=== PATIENT | female | born 1960 ===

== ENCOUNTER 2020-05-17 17:15 | Outpatient (REF) | payer BC, SELFPAY ==
--- NOTE | 2020-05-17 | MM_ITS ---
EXAMINATION: MM SCREENING DIGITAL BREAST TOMOSYNTHESIS, BILATERAL CLINICAL INFORMATION: Screening. Asymptomatic. The lifetime risk of breast cancer based on the Tyrer-Cuzick Model is 9%. COMPARISON: Mammography: 04/13/2019, 03/27/2018, 03/21/2017 TECHNIQUE: Digital breast tomosynthesis is performed in both the craniocaudal and mediolateral oblique views along with computer-aided detection (CAD). Synthesized 2D images are generated from the tomosynthesis. Additional left MLO view is provided. FINDINGS: There are scattered areas of fibroglandular density (ACR BI-RADS breast composition Category b). There are no significant masses, abnormal calcifications, or other abnormalities. Intramammary node upper outer left breast again noted similar to prior studies. The axilla and skin contours are unremarkable. No significant changes. MM/MM tomosynthesis screening BI IMPRESSION: No mammographic evidence of malignancy. ASSESSMENT: BI-RADS 2: Benign RECOMMENDATION: Routine annual mammography screening. This patient's information was entered into a reminder system with a target due date for their next mammogram.
== END 2020-05-17 17:16 | disposition home or self-care (01) ==
LOC: HO.MAMMO 17:15
PROVIDERS: PCP Internal Medicine; Visit Provider Obstetrics & Gynecology Gynecology
DX: Z12.31 Encounter for screening mammogram for malignant neoplasm of breast (principal)
CPT/HCPCS: 77063; 77067

== ENCOUNTER 2021-02-21 12:24 | Outpatient (REF) | payer BC, SELFPAY ==
[2021-02-21 13:02] LABS: MANUAL DIFF FLAG NO
[2021-02-21 13:09] LABS: Basophils Percent Auto 0.5 % (0-2); Eosinophils Absolute Auto 0.3 X10*3/uL (0.0-0.4); Eosinophils Percent Auto 3.7 % (0-4); Hematocrit 39.4 % (37-47); Imm Gran Abs Auto 0.02 X10*3/uL (0.00-0.03); Imm Gran Pct Auto 0.3 % (0.0-0.4); Lymphocytes Absolute Auto 2.3 X10*3/uL (1.2-4.9); Lymphocytes Percent Auto 29.7 % (20-40); Mean Corpuscular Hemoglobin 30.7 pg (27.0-33.0); Mean Corpuscular Volume 92.9 fL (80-98); Mean Platelet Volume 10.4 fL (9.4-12.3); Monocytes Absolute Auto 0.6 X10*3/uL (0.1-1.2); Monocytes Percent Auto 7.2 % (2-11); Neutrophils Absolute Auto 4.6 X10*3/uL (2.0-8.3); Neutrophils Percent Auto 58.6 % (45-73); Platelet Count 209 X10*3/uL (160-400); Red Blood Count 4.24 X10*6/uL (4.20-5.50); White Blood Count 7.8 X10*3/uL (4.8-10.8)
[2021-02-21 13:15] LABS: Estimated Average Glucose 108 mg/dL; Hemoglobin A1c % 5.4 %
[2021-02-21 13:26] LABS: Alanine Aminotransferase 14 U/L (0-31); Albumin Level 4.3 g/dL (3.5-5.0); Alkaline Phosphatase 67 U/L (39-117); Anion Gap 13 (12-20); Aspartate Amino Transferase 13 U/L (5-31); Bilirubin Total 0.5 mg/dL (0.0-1.0); Blood Urea Nitrogen 17 mg/dL (9-16); Calcium 8.9 mg/dL (8.4-10.2); Carbon Dioxide 29 mmol/L (22-29); Chloride 105 mmol/L (96-108); Cholesterol 193 mg/dL; Estimated Glomerular Filt Rate > 60; Glucose Random 87 mg/dL (60-115); HDL Cholesterol 61 mg/dL; LDL Cholesterol Calculated 114 mg/dl; Potassium 4.3 mmol/L (3.3-5.1); Sodium 143 mmol/L (135-145); Total Protein 7.1 g/dL (6.5-8.0); Triglycerides 94 mg/dL
[2021-02-21 13:47] LABS: Free T4 (Free Thyroxine) 1.23 ng/dL (0.71-1.85); Thyroid Stimulating Hormone 0.62 uIU/mL (0.32-4.0); Vitamin D 25-OH Total 56.6 ng/mL (>30)
[2021-02-21 14:02] LABS: Folate 17.7 ng/mL (> or = 4.0); Vitamin B12 288 pg/mL (200-900)
== END 2021-02-21 12:25 | disposition home or self-care (01) ==
LOC: HO.LAB 12:24
PROVIDERS: PCP Internal Medicine; Visit Provider Internal Medicine
DX: E03.9 Hypothyroidism, unspecified (principal); E78.00 Pure hypercholesterolemia, unspecified; R73.02 Impaired glucose tolerance (oral)
CPT/HCPCS: 36415; 80053; 80061; 82306; 82607; 82746; 83036; 84439; 84443; 85025

== ENCOUNTER 2021-04-27 09:32 | Outpatient (REF) | payer BC, SELFPAY ==
[2021-04-27 11:36] LABS: Influenza A PCR NEGATIVE (Negative); Influenza B PCR NEGATIVE (Negative); Resp Syncy Virus RNA Qual PCR NEGATIVE (Negative); SARS COV2 PCR INHOUSE NEGATIVE (Negative)
== END 2021-04-27 09:33 | disposition home or self-care (01) ==
LOC: HO.LAB 09:32
PROVIDERS: PCP Internal Medicine; Visit Provider Internal Medicine
DX: Z20.822 Contact with and (suspected) exposure to COVID-19 (principal)
CPT/HCPCS: 0241U; 36415

== ENCOUNTER 2021-05-21 15:15 | Outpatient (REF) | payer BC, SELFPAY ==
--- NOTE | ~2021-05-21 | MM_ITS ---
EXAMINATION: MM SCREENING DIGITAL BREAST TOMOSYNTHESIS, BILATERAL CLINICAL INFORMATION: Screening. Asymptomatic. The lifetime risk of breast cancer based on the Tyrer-Cuzick Model is 7%. COMPARISON: Mammography: 05/17/2020, 04/13/2019, 03/27/2018 TECHNIQUE: Digital breast tomosynthesis is performed in both the craniocaudal and mediolateral oblique views along with computer-aided detection (CAD). Synthesized 2D images are generated from the tomosynthesis. FINDINGS: The breasts are heterogeneously dense, which may obscure small masses (ACR BI-RADS breast composition Category c). Parenchymal pattern is similar to prior exams. Nodularity upper outer quadrant left breast is stable. There is no developing density in either breast or architectural abnormality. No abnormal calcifications. The axilla and skin contours are unremarkable. MM/MM tomosynthesis screening BI IMPRESSION: No mammographic evidence of malignancy. ASSESSMENT: BI-RADS 2: Benign RECOMMENDATION: Routine annual mammography screening. This patient's information was entered into a reminder system with a target due date for their next mammogram.
== END 2021-05-21 15:16 | disposition home or self-care (01) ==
LOC: HO.MAMMO 15:15
PROVIDERS: PCP Internal Medicine; Visit Provider Obstetrics & Gynecology Gynecology
DX: Z12.31 Encounter for screening mammogram for malignant neoplasm of breast (principal)
CPT/HCPCS: 77063; 77067

== ENCOUNTER 2022-02-25 07:37 | Outpatient (REF) | payer BC, SELFPAY ==
[2022-02-25 08:35] LABS: Alanine Aminotransferase 20 U/L (0-31); Albumin Level 4.3 g/dL (3.5-5.0); Alkaline Phosphatase 86 U/L (39-117); Anion Gap 16 (12-20); Aspartate Amino Transferase 16 U/L (5-31); Bilirubin Total 0.4 mg/dL (0.0-1.0); Blood Urea Nitrogen 16 mg/dL (9-16); Calcium 9.4 mg/dL (8.4-10.2); Carbon Dioxide 30 mmol/L (22-29); Chloride 102 mmol/L (96-108); Cholesterol 219 mg/dL; Estimated Glomerular Filt Rate > 60; Glucose Random 101 mg/dL (60-115); HDL Cholesterol 65 mg/dL; LDL Cholesterol Calculated 127 mg/dl; Potassium 5.1 mmol/L (3.3-5.1); Rheumatoid Factor < 15.0 IU/mL (<15.0); Sodium 143 mmol/L (135-145); Total Protein 7.5 g/dL (6.5-8.0); Triglycerides 136 mg/dL
[2022-02-25 08:37] LABS: Estimated Average Glucose 108 mg/dL; Hemoglobin A1c % 5.4 %
[2022-02-28 16:02] LABS: Anti Nuclear Antibody Pattern Nuclear, Centromere; Anti Nuclear Antibody Screen POSITIVE (NEGATIVE); Anti Nuclear Antibody Titer 1:40 titer
== END 2022-02-25 07:38 | disposition home or self-care (01) ==
LOC: HO.LAB 07:37
PROVIDERS: PCP Internal Medicine; Visit Provider Nurse Practitioner Family
DX: E78.00 Pure hypercholesterolemia, unspecified (principal); M25.50 Pain in unspecified joint; R73.02 Impaired glucose tolerance (oral); R09.89 Other specified symptoms and signs involving the circulatory and respiratory systems
CPT/HCPCS: 36415; 80053; 80061; 83036; 86038; 86039; 86431

== ENCOUNTER 2022-05-27 15:24 | Outpatient (REF) | payer BC, SELFPAY ==
--- NOTE | ~2022-05-27 | MM_ITS ---
EXAMINATION: MM SCREENING DIGITAL BREAST TOMOSYNTHESIS, BILATERAL CLINICAL INFORMATION: Screening. Asymptomatic. The lifetime risk of breast cancer based on the Tyrer-Cuzick Model is 7%. COMPARISON: Mammography: 05/21/2021, 05/17/2020, 04/13/2019 TECHNIQUE: Digital breast tomosynthesis is performed in both the craniocaudal and mediolateral oblique views along with computer-aided detection (CAD). Synthesized 2D images are generated from the tomosynthesis. Additional bilateral MLO views are provided. FINDINGS: There are scattered areas of fibroglandular density (ACR BI-RADS breast composition Category b). There are no significant masses, abnormal calcifications, or other abnormalities. Parenchymal pattern is similar to prior studies. There is no developing density or architectural abnormality. There is an intramammary node again seen mid upper outer left breast similar to prior studies. The axilla are unremarkable. There is a dermal lesion overlying the posterior medial right breast marked with skin marker. MM/MM tomosynthesis screening BI IMPRESSION: No mammographic evidence of malignancy. ASSESSMENT: BI-RADS 2: Benign RECOMMENDATION: Routine annual mammography screening. This patient's information was entered into a reminder system with a target due date for their next mammogram.
== END 2022-05-27 15:25 | disposition home or self-care (01) ==
LOC: HO.MAMMO 15:24
PROVIDERS: PCP Internal Medicine; Visit Provider Internal Medicine
DX: Z12.31 Encounter for screening mammogram for malignant neoplasm of breast (principal)
CPT/HCPCS: 77063; 77067

== ENCOUNTER → 2022-09-24 13:56 | Outpatient (REF) | payer BC, SELFPAY | LOC: HO.SL 13:56 | PROVIDERS: PCP Internal Medicine; Visit Provider Internal Medicine | DX: G47.33 Obstructive sleep apnea (adult) (pediatric) (principal) | CPT/HCPCS: 95806 ==

== ENCOUNTER 2023-06-10 13:57 | Outpatient (REF) | payer BC, SELFPAY | END 2023-06-10 13:58 | disposition home or self-care (01) | LOC: HO.MAMMO 13:57 | PROVIDERS: Visit Provider Obstetrics & Gynecology Gynecology | DX: Z12.31 Encounter for screening mammogram for malignant neoplasm of breast (principal) | CPT/HCPCS: 77063; 77067 ==

== ENCOUNTER → 2023-06-10 14:00 | Outpatient (BNV) | payer BC, SELFPAY | PROVIDERS: Visit Provider Radiology Diagnostic Radiology | DX: Z12.31 Encounter for screening mammogram for malignant neoplasm of breast (principal) | CPT/HCPCS: 77063; 77067 ==

== ENCOUNTER 2023-06-13 14:55 | Outpatient (REF) | payer BC, SELFPAY ==
--- NOTE | ~2023-06-13 | MM_ITS ---
EXAMINATION: BONE DENSITOMETRY CLINICAL INDICATION: Menopause. COMPARISON: Baseline BD dated 06/23/2015. TECHNIQUE: Using a [employer] DXA System (software version: 13.1) manufactured by [employer], dual-energy x-ray absorptiometry was performed of the lumbar spine and left hip. The images are of good technical quality. Summary results are attached. FINDINGS: LEFT FEMUR, NECK: Current: BMD 0.951 g/cm2, Z-score 0.1, T-score -0.6, normal. Baseline: BMD 0.947 g/cm2. LEFT FEMUR, TOTAL: Current: BMD 1.008 g/cm2, Z-score 0.4, T-score 0.0, normal, 0.7% increase from baseline (<5% change is not significant). Baseline: BMD 1.001 g/cm2. AP SPINE L1-L4: Current: BMD 1.249 g/cm2, Z-score 1.1, T-score 0.6, normal, 4.8% increase from baseline (<5% change is not significant). Baseline: BMD 1.192 g/cm2. IDENTIFIED RISK FACTORS: Early menopause, hysterectomy, bilateral oophorectomy, secondary osteoporosis. HISTORY OF FRACTURE: None listed. MEDICATIONS: Calcium, vitamin D, ERT/SERMS. MM/XR DEXA axial skeleton IMPRESSION: 1. DIAGNOSIS: Normal bone density based on the lowest T-score value of -0.6 in the femoral neck applying World Health Organization criteria. 2. 10-YEAR FRACTURE RISK PREDICTION, FRAX: According to the guidelines, FRAX calculation should only be performed on patients in the osteopenia bone density category. Therefore, FRAX was not performed on this patient. 3. Treatment Recommendations: NOF guidelines recommend consideration for treatment in postmenopausal women and men age 50 and older presenting with the following: -A hip or vertebral (clinical or morphometric) fracture. -T-score less than or equal to -2.5 at the femoral neck or spine after appropriate evaluation to exclude secondary causes. -Low bone mass at the hip or spine and a 10-year fracture probability by FRAX of greater than or equal to 3% for hip fracture or greater than or equal to 20% for major osteoporotic fracture based on the [place] adapted WHO algorithm. 4. Other Recommendations: All treatment decisions require clinical judgment and consideration of individual patient factors, including patient preferences, comorbidities, previous drug use, risk factors not captured in the FRAX model (e.g. frailty, falls, vitamin D deficiency, increased bone turnover, interval significant decline in bone density) and possible under or overestimation of fracture risk by FRAX. FUTURE SCAN RECOMMENDATION: People with diagnosed cases of osteoporosis or at high risk for fracture should have regular bone mineral density tests. For patients eligible for Medicare, routine testing is allowed once every 2 years. The testing frequency can be increased to one year for patients who have rapidly progressing disease, those who are receiving or discontinuing medical therapy to restore bone mass, or have additional risk factors.
== END 2023-06-13 14:56 | disposition home or self-care (01) ==
LOC: HO.MAMMO 14:55
PROVIDERS: PCP Obstetrics & Gynecology Gynecology; Visit Provider Obstetrics & Gynecology Gynecology
DX: Z13.820 Encounter for screening for osteoporosis (principal); Z78.0 Asymptomatic menopausal state
CPT/HCPCS: 77080

== ENCOUNTER 2023-07-18 14:01 | Outpatient (AMB) | payer OTHER, SELFPAY ==
--- NOTE | 2023-07-18 14:03 | A.OFFPC_ITS ---
Vital Signs 07/18/23 14:04 Height 5 ft 2 in Weight 204 lb 2 oz BMI 37.3 BP 128/82 Blood Pressure Location Lt brachial Position Sitting Pulse 76 Pulse Source Pulse Oximeter Pulse Oximetry (%) 98 Oxygen Delivery Method Room Air Intake Visit Reasons: witnessed apnea, HTN Marketing Support Coordinator Required: No Accompanied by: Self / Same As Patient Allergies Penicillins [PCN] Allergy (Unknown, Verified 07/18/23 14:07) UNKNOWN Medication List - Last Reconciled 07/18/23 by Kaci Eubanks MD [AutoPAP mode and pressure setting of 6-16 cm water humidified AIR As directed] carvedilol 6.25 mg PO BID cholecalciferol (vitamin D3) 50 mcg PO DAILY estradiol patches transdermal levothyroxine 88 mcg orally once a day x 6 days one 1.5 tab; simvastatin 10 mg PO DAILY 90 days Tobacco use date assessed: 07/18/23 Dental Screening Dental Screen Date: 07/18/23 Did you have a dental visit in the last 12 months?: Yes Did you have a dental problem in the last 6 months where you did not have access to dental care?: No Was dental information given to patient?: Patient has dentist HPI witnessed apnea, HTN HPI Details 63-year-old obese female with a history of hypothyroidism(history of thyroid cancer) impaired glucose tolerance hypercholesterolemia and labile hypertension last seen in August 2022. Patient has generalized anxiety disorder also as well as concerns about witnessed apneic spells coming in for follow-up. Patient's colonoscopy is up-to-date May 2018 mammogram and bone density up-to-date. In September 2022 patient was seen by Nephrology due to concerns of the blood pressure advised increase in carvedilol and blood work follow-up requested. Patient did have the sleep study done September 2022 showing moderately severe obstructive sleep apnea with an AHI of 16.6 advised to start on CPAP with auto PAP setting of 6-16 cm water. but patient states doubt the results - and has not used this- advsied to see sleep management and stressed improtance. Patient also complains of having chest pain intermittently sometimes while driving and this would spontaneously clear. No nausea no vomiting no fevers no coughs no colds no bowel bladder symptoms. [facility] Medical History (Updated 07/18/23 @ 14:28 by Kaci Eubanks MD) Witnessed apneic spells Labile hypertension Anxiety Impaired glucose tolerance Peripheral vascular disease Hypercholesterolemia History of thyroid cancer Hypothyroid Obesity (BMI 30-39.9) Surgical History History of hysterectomy History of thyroidectomy Family History Father Diabetes Hypertension CVD (cardiovascular disease) Mother CVD (cardiovascular disease) Hypertension Sister In good health Lung cancer Sister In good health Sister In good health Son In good health Paternal Uncle Myocardial infarction Maternal Uncle Myocardial infarction Social History Housing: House Alcohol intake: never Patient Tobacco Use Status: Never used Tobacco e-Cigarette/Vaping Use: Never Used Second Hand Smoke Exposure: No service: No Current occupational status: employed Current occupational exposures/hazards: No Cognitive needs: No Hearing needs: No Vision needs: Yes Questionnaire PHQ-9 Over the last 2 weeks, how often have you been bothered by any of the following problems? 1. Little interest or pleasure in doing things: not at all 2. Feeling down, depressed, or hopeless: not at all 3. Trouble falling or staying asleep, or sleeping too much: not at all 4. Feeling tired or having little energy: not at all 5. Poor appetite or overeating: not at all 6. Feeling bad about yourself - or that you are a failure or have let yourself or your family down: not at all 7. Trouble concentrating on things, such as reading the newspaper or watching television: not at all 8. Moving or speaking so slowly that other people could have noticed. Or the opposite - being so fidgety or restless that you have been moving around a lot more than usual: not at all 9. Thoughts that you would be better off or of hurting yourself in some way: not at all Total score: 0 Depression Screening Interpretation: Negative Depression Screening Done: Yes 41323 - PHQ-9 Billing: Yes Source: Developed by Drs. Vin Vallejo, Dalia Lui, Chacorta Doran and colleagues, with an educational severiano from [employer]. Thrive Questionnaire Date Thrive assessed: 07/18/23 I am a: Patient What is your living situation today?: I have a steady place to live Within the past 12 months, did the food you bought not last and you didn't have the money to get more?: Never true Within the past 12 months, did you worry whether your food would run out before you got money to buy more?: Never true Do you have trouble paying for medicines?: No Do you have trouble getting transportation to medical appointments?: No Do you have trouble paying your heating and electricity bill?: No Do you have trouble taking care of your child, family member or friend?: No Do you have trouble with day-to-day activities such as bathing, preparing meals, shopping, managing finances, etc.?: No Are you currently unemployed and looking for a job?: No Are you interested in more education?: No Please select the resources that you would like help with: None Currently or been in a relationship where the following occur: no concerns reported THRIVE Score: 0 AUDIT C Alcohol Use Questionnaire (AUDIT-C) 1. How often do you have a drink containing alcohol?: Never 3. How often do you have six or more drinks on one occasion?: Never Total Score: 0 YOLANDA-7 AMB Questionnaire YOLANDA-7 Date YOLANDA - 7 assessed: 07/18/23 Feeling nervous, anxious, or on edge: 0 = Not at all Not being able to stop or control worryin = Not at all Worrying too much about different things: 0 = Not at all Trouble relaxin = Not at all Being so restless that it is hard to sit still: 0 = Not at all Becoming easily annoyed or irritable: 0 = Not at all Feeling afraid as if something awful might happen: 0 = Not at all Total YOLANDA-7 score (0-4 normal; 5-9 mild; 10-14 moderate; 15-21 severe): 0 Source: Developed by Drs. Vin Vallejo, Dalia Lui, Chacorta Doran and colleagues, with an educational severiano from [employer]. YOLANDA-7 Assessment Billing YOLANDA-7 Assessment Tool: YOLANDA-7 Assessment 51438 Physical exam (Primary Care) Vital Signs: Last Vital Signs Pulse 76 07/18/23 14:04 Pulse Ox 98 07/18/23 14:04 Oxygen Delivery Method Room Air 07/18/23 14:04 BMI result Body Mass Index 37.3 Tobacco/Smoking Status: Tobacco use Status Tobacco use date assessed 08/29/22 08/29/22 13:12 Patient Tobacco Use Status Never used Tobacco 08/29/22 13:12 e-Cigarette/Vaping Use Never Used 08/29/22 13:12 Depression Screening Interpretation: Negative Thrive Assessment: Date of Thrive Assessment Date Thrive assessed 08/29/22 08/29/22 13:14 Currently or been in a relationship where the following occur: no concerns reported Const General: alert; No acute distress Eyes Conjunctivae: conjunctivae normal Resp Auscultation: clear to auscultation bilaterally Cardio Rate: regular rate Rhythm: regular rhythm GI Inspection: Yes normal to inspection Extrem General: Yes normal to inspection and No edema Assessment and Plan Assessment & Plan (1) Severe obstructive sleep apnea: Comment: September 2022 Code(s): G47.33 - Obstructive sleep apnea (adult) (pediatric) Plan: have not been using the CPAP. And discussed with the patient the importance of getting this sleep apnea under control as it will affect the heart. And patient does complain that she has some palpitations. (2) Hypothyroid: Code(s): E03.9 - Hypothyroidism, unspecified Qualifiers: Hypothyroidism type: acquired Qualified Code(s): E03.9 - Hypothyroidism, unspecified Plan: Continue with thyroid medication patient follows up with endocrinology (3) Obesity (BMI 30-39.9): Code(s): E66.9 - Obesity, unspecified Plan: Diet and exercise (4) Hypercholesterolemia: Comment: goal of LDL is less than 130 Code(s): E78.00 - Pure hypercholesterolemia, unspecified Plan: Avoid fried foods, chicken skin, eggs, butter margarine, pastries and meat. Be it pork or beef they have a lot of cholesterol LDL goal of less than 130 and triglyceride of less than 150 patient on simvastatin 10 mg once a day advised the need to get this retested (5) Hypertension: Code(s): I10 - Essential (primary) hypertension Plan: Patient has seen Nephrology and was advised to continue with carvedilol. Continue with present medication, low-salt diet (6) Generalized anxiety disorder: Code(s): F41.1 - Generalized anxiety disorder Plan: Stable (7) Chest pain: Code(s): R07.9 - Chest pain, unspecified Plan: Will order for stress Orders: Orders Thyroid Stimulating Hormone Today E03.9 - Hypothyroidism, unspecified Free T4 (Free Thyroxine) Today E03.9 - Hypothyroidism, unspecified Comprehensive Met. Panel Today E03.9 - Hypothyroidism, unspecified CA stress test Today R07.9 - Chest pain, unspecified Referrals Sleep Medicine Referral G47.33 - Obstructive sleep apnea (adult) (pediatric) Medications: Refilled simvastatin 10 mg PO DAILY 90 days 90 tabs 2RF E78.00 - Pure hypercholesterolemia, unspecified Coding Level of Care Code Est Pt Level 4 (02967) Diagnoses Severe obstructive sleep apnea G47.33 Acquired hypothyroidism E03.9 Hypothyroidism type: acquired Obesity (BMI 30-39.9) E66.9 Hypercholesterolemia E78.00 Hypertension I10 Generalized anxiety disorder F41.1 Chest pain R07.9 Additional Codes YOLANDA-7 Assessment Billing - YOLANDA-7 Assessment Tool: YOLANDA-7 Assessment [id number] ([id number])
[2023-07-18 14:04] VITALS: BP 128/82; PULSE 76; O2SAT 98; BMI 37.3
== END 2023-07-18 14:45 | disposition home or self-care (01) ==
PROVIDERS: PCP Internal Medicine; Visit Provider Internal Medicine
DX: E03.9 Hypothyroidism, unspecified (principal); G47.33 Obstructive sleep apnea (adult) (pediatric); E66.9 Obesity, unspecified; Z68.37 Body mass index [BMI] 37.0-37.9, adult; E78.00 Pure hypercholesterolemia, unspecified; I10 Essential (primary) hypertension; F41.1 Generalized anxiety disorder; R07.9 Chest pain, unspecified
CPT/HCPCS: 99214

== ENCOUNTER → 2023-08-08 09:51 | Outpatient (REF) | payer OTHER, SELFPAY ==
--- NOTE | 2023-08-08 09:53 | CA_ITS ---
Acquisition Time: 2023-08-08 09:48:37 Total Exercise Time: 00:05:02 Test Indications: Palpitations CHEST PAIN Medications: CRVEDILOL LEVOTHYROXINE SIMVASTATIN ESTRADIOL Protocol: YUMIKO Max HR: 162 BPM 102% of Pred: 158 BPM Max BP: 172/080 mmHG Max Work Load: 7.0 METS `````````````````````````````````````````````````````````````````````````````` ` Exercise stress test exercise 5 min 2 sec of Yumiko protocol achieving 101% MPHR, with 6/10 chest tightness, mild to moderate SOB, with isolated PVC, with normotensive and brisk HR response to exercise, without EKG changes. Chest pain resolved with rest. Text reviewed with Dr. Hagan Referred By: Kaci Eubanks Overread By: Margie Culver
== END ==
LOC: HO.CARD 09:51
PROVIDERS: PCP Obstetrics & Gynecology Gynecology; Visit Provider Internal Medicine
DX: R07.9 Chest pain, unspecified (principal)
CPT/HCPCS: 93017

== ENCOUNTER → 2023-08-08 09:53 | Outpatient (BNV) | payer OTHER, SELFPAY | PROVIDERS: PCP Obstetrics & Gynecology Gynecology; Visit Provider Nurse Practitioner | DX: R07.89 Other chest pain (principal); R06.02 Shortness of breath | CPT/HCPCS: 93016; 93018 ==

== ENCOUNTER → 2023-10-03 08:49 | Outpatient (REF) | payer OTHER, SELFPAY ==
--- NOTE | ~2023-10-03 | NM_ITS ---
Lexiscan Myocardial perfusion study Indication: Chest pain, assess for coronary disease and ischemia Technique: The patient was brought in for a Lexiscan perfusion study on 10/03/2023 and was injected 0.4 mg of Lexiscan intravenously. Within a minute of this injection 30 mCi of sestamibi was given intravenously. Images were obtained using the SPECT gamma camera interlaced with the gating device. Images were obtained in supine position. Resting perfusion study was performed on 10/08/2023. Patient was administered 30 mCi of sestamibi intravenously at rest. Images were then obtained in supine position. Images were processed with the software and compared side to side in short axis, horizontal long axis and vertical long axis views. Total DLP 122mGy-cm. Findings: Raw acquisition reviewed. The stress perfusion study showed diminished tracer uptake in the distal part of lateral wall. Some improvement with CT attenuation correction and could have components of soft tissue attenuation artifact. The gated study shows normal LV systolic function with calculated LVEF of 66%. LV cavity is normal in size. The gated study shows normal wall thickening and contraction of segments. Resting study shows no significant perfusion abnormality. Gating at rest reveals normal wall motion with ejection fraction at 70%. The findings are consistent with reversible distal lateral defect, possibly from soft tissue attenuation artifact. UT/UT cardiolite stress test Impression: 1. Myocardial perfusion imaging study shows no definitive evidence of any ischemia or infarction. Probably artifactual defect in the distal lateral wall. 2. Gated LVEF is 66% during stress; 70% during rest. 3. Transient ischemic dilatation not present. EKG component of the test reported separately.
--- NOTE | 2023-10-03 08:52 | CA_ITS ---
Acquisition Time: 2023-10-03 08:56:01 Total Exercise Time: 00:02:00 Test Indications: CP Medications: SEE H Protocol: LEXISCAN Max HR: 108 BPM 68% of Pred: 158 BPM Max BP: 144/088 mmHG Max Work Load: 1.0 METS Pharmacological stress test with Lexiscan injection while sitting and kicking her legs, without anginal symptoms, without arrhythmias, with normotensive resposne to injection, with nondiagnoisitic EKGs. Nuclear images pending. Test reviewed with Dr. Patel. Referred By: Kaci Eubanks Overread By: Margie Culver
== END ==
LOC: HO.CARD 08:49
PROVIDERS: PCP Obstetrics & Gynecology Gynecology; Visit Provider Internal Medicine
DX: R07.9 Chest pain, unspecified (principal)
CPT/HCPCS: 78452; 93017; A9500; J0280; J2785

== ENCOUNTER → 2023-10-03 08:52 | Outpatient (BNV) | payer OTHER, SELFPAY | PROVIDERS: PCP Obstetrics & Gynecology Gynecology; Visit Provider Nurse Practitioner | DX: R07.9 Chest pain, unspecified (principal) | CPT/HCPCS: 78452; 93016; 93018 ==

== ENCOUNTER 2023-10-18 08:36 | Outpatient (REF) | payer OTHER, SELFPAY ==
[2023-10-18 08:53] LABS: MANUAL DIFF FLAG NO
[2023-10-18 09:29] LABS: Basophils Absolute Auto 0.1 X10*3/uL (0.0-0.2); Basophils Percent Auto 0.6 % (0-2); Eosinophils Absolute Auto 0.4 X10*3/uL (0.0-0.4); Eosinophils Percent Auto 4.8 % (0-4); Hematocrit 40.7 % (37.0-47.0); Hemoglobin 13.2 g/dl (12.0-16.0); Imm Gran Abs Auto 0.02 X10*3/uL (0.00-0.03); Imm Gran Pct Auto 0.3 % (0.0-0.4); Lymphocytes Percent Auto 25.6 % (20-40); Mean Corpuscular HGB Conc 32.4 g/dl (31.0-35.0); Mean Corpuscular Hemoglobin 30.8 pg (27.0-33.0); Mean Corpuscular Volume 94.9 fL (80.0-98.0); Mean Platelet Volume 10.2 fL (9.4-12.3); Monocytes Absolute Auto 0.5 X10*3/uL (0.1-1.2); Monocytes Percent Auto 6.3 % (2-11); Neutrophils Absolute Auto 4.8 x10*3/uL (2.0-8.3); Neutrophils Percent Auto 62.4 % (45-73); Platelet Count 220 X10*3/uL (160-400); Red Blood Count 4.29 X10*6/uL (4.20-5.50); Red Cell Distribution Width 13.3 % (11.0-16.0); White Blood Count 7.7 X10*3/uL (4.8-10.8)
[2023-10-18 10:11] LABS: Alanine Aminotransferase 21 U/L (0-31); Albumin Level 4.1 g/dL (3.5-5.0); Alkaline Phosphatase 75 U/L (39-117); Anion Gap 14 (12-20); Aspartate Amino Transferase 15 U/L (5-31); Bilirubin Total 0.5 mg/dL (0.0-1.0); Blood Urea Nitrogen 16 mg/dL (9-16); Calcium 9.4 mg/dL (8.4-10.2); Carbon Dioxide 28 mmol/L (22-29); Chloride 105 mmol/L (96-108); Cholesterol 209 mg/dL (<200); Estimated Glomerular Filt Rate > 60; Glucose Random 106 mg/dL (60-115); HDL Cholesterol 61 mg/dL (>40); LDL Cholesterol Calculated 124 mg/dL (<100); Potassium 4.7 mmol/L (3.3-5.1); Sodium 142 mmol/L (135-145); Total Protein 7.4 g/dL (6.5-8.0); Triglycerides 121 mg/dL (<150)
[2023-10-18 10:29] LABS: Free T4 (Free Thyroxine) 1.11 ng/dL (0.71-1.85); Thyroid Stimulating Hormone 1.08 uIU/mL (0.32-4.0); Vitamin D 25-OH Total 57.9 ng/mL (>30)
[2023-10-18 10:39] LABS: Folate 8.3 ng/mL (> or = 4.0); Vitamin B12 281 pg/mL (200-900)
== END 2023-10-18 08:37 | disposition home or self-care (01) ==
LOC: HO.LAB 08:36
PROVIDERS: PCP Internal Medicine; Visit Provider Internal Medicine
DX: E78.00 Pure hypercholesterolemia, unspecified (principal); E03.9 Hypothyroidism, unspecified
CPT/HCPCS: 36415; 80053; 80061; 82306; 82607; 82746; 84439; 84443; 85025

== ENCOUNTER 2023-10-24 10:30 | Outpatient (AMB) | payer OTHER, SELFPAY ==
--- NOTE | 2023-10-24 10:36 | MHC.PC.OV ---
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 Had some chest pain and stress test done. Patient's colonoscopy last done in May 2018, mammogram is up-to-date bone density is up-to-date. Nephrology notes September 2023 for hypertension advise low-sodium diet avoid NSAIDs weight loss target blood pressure 120/80 advised increase in carvedilol 12.5 mg twice a day stress test done September 2023 negative Myocardial perfusion imaging study shows no definitive evidence of any ischemia or infarction. Probably artifactual defect in the distal lateral wall. 2. Gated LVEF is 66% during stress; 70% during rest. 3. Transient ischemic dilatation not present. 4 weeks fall - tripped no chest pain fell on bilateral knee but today still L knee pain. had asthmatic bronchitis during lj trip also. amauri has not useds the CPAP and will be seeing Neuro for repeat testing [facility] Medical History (Updated 07/18/23 @ 14:28 by Kaci Eubanks MD) Witnessed apneic spells Labile hypertension Anxiety Impaired glucose tolerance Peripheral vascular disease Hypercholesterolemia History of thyroid cancer Hypothyroid Obesity (BMI 30-39.9) Surgical History History of hysterectomy History of thyroidectomy Family History Father Diabetes Hypertension CVD (cardiovascular disease) Mother CVD (cardiovascular disease) Hypertension Sister In good health Lung cancer Sister In good health Sister In good health Son In good health Paternal Uncle Myocardial infarction Maternal Uncle Myocardial infarction Social History Housing: House Alcohol intake: never Patient Tobacco Use Status: Never used Tobacco e-Cigarette/Vaping Use: Never Used Second Hand Smoke Exposure: No service: No Current occupational status: employed Current occupational exposures/hazards: No Cognitive needs: No Hearing needs: No Vision needs: Yes Questionnaire Thrive Questionnaire Date Thrive assessed: 07/18/23 YOLANDA-7 AMB Questionnaire YOLANDA-7 Date YOLANDA - 7 assessed: 07/18/23 Source: Developed by Drs. Vin Vallejo, Dalia Lui, Chacorta Doran and colleagues, with an educational severiano from [employer]. Physical exam (Primary Care) Vital Signs: Last Vital Signs Pulse 78 10/24/23 10:40 BP 144/90 H 10/24/23 10:40 Pulse Ox 96 10/24/23 10:40 Oxygen Delivery Method Room Air 10/24/23 10:40 BMI result Body Mass Index 37.3 Tobacco/Smoking Status: Tobacco use Status Tobacco use date assessed 07/18/23 10/24/23 10:37 Patient Tobacco Use Status Never used Tobacco 10/24/23 10:37 e-Cigarette/Vaping Use Never Used 10/24/23 10:37 Thrive Assessment: Date of Thrive Assessment Date Thrive assessed 07/18/23 10/24/23 10:37 Const General: alert; No acute distress Eyes Conjunctivae: conjunctivae normal Resp Auscultation: clear to auscultation bilaterally Cardio Rate: regular rate Rhythm: regular rhythm GI Inspection: Yes normal to inspection Extrem General: Yes normal to inspection and No edema Assessment and Plan Assessment & Plan (1) Obesity (BMI 30-39.9): Code(s): E66.9 - Obesity, unspecified Plan: Diet and exercise (2) Hypothyroid: Code(s): E03.9 - Hypothyroidism, unspecified Qualifiers: Hypothyroidism type: acquired Qualified Code(s): E03.9 - Hypothyroidism, unspecified Plan: Continue with thyroid medication (3) History of thyroid cancer: Code(s): Z85.850 - Personal history of malignant neoplasm of thyroid Plan: Continue to follow-up with endocrinology for surveillance (4) Hypercholesterolemia: Comment: goal of LDL is less than 130 Code(s): E78.00 - Pure hypercholesterolemia, unspecified Plan: Avoid fried foods, chicken skin, eggs, butter margarine, pastries and meat. Be it pork or beef they have a lot of cholesterol patient on simvastatin 10 mg once a day LDL goal of less than 130 and triglyceride of less than 150. (5) Impaired glucose tolerance: Comment: discussed about diet and exercise Code(s): R73.02 - Impaired glucose tolerance (oral) Plan: Decrease the amount of carbohydrate intake, pasta, bread, rice and potatoes are all sugar and that is aside from all the sweet stuff, remember that fruits are good but they are Sweet also. (6) Severe obstructive sleep apnea: Comment: September 2022 Code(s): G47.33 - Obstructive sleep apnea (adult) (pediatric) Plan: not on CPAP and will have consult with neurology (7) Hypertension: Code(s): I10 - Essential (primary) hypertension Plan: Continue with blood pressure medication. Decrease salt intake and exercise patient has seen Nephrology and advised increase in carvedilol 12.5 mg twice a day (8) Chest pain: Code(s): R07.9 - Chest pain, unspecified Plan: Patient had cardiac workup negative (9) Generalized anxiety disorder: Code(s): F41.1 - Generalized anxiety disorder Plan: Stable Coding Level of Care Code Est Pt Level 4 (70248) Diagnoses Obesity (BMI 30-39.9) E66.9 Acquired hypothyroidism E03.9 Hypothyroidism type: acquired History of thyroid cancer Z85.850 Hypercholesterolemia E78.00 Impaired glucose tolerance R73.02 Severe obstructive sleep apnea G47.33 Hypertension I10 Chest pain R07.9 Generalized anxiety disorder F41.1
[2023-10-24 10:40] VITALS: BP 144/90; PULSE 78; O2SAT 96; BMI 37.3
[2023-10-24 11:03] VITALS: BP 132/70
== END 2023-10-24 11:20 | disposition home or self-care (01) ==
PROVIDERS: PCP Obstetrics & Gynecology Gynecology; Visit Provider Internal Medicine
DX: E03.9 Hypothyroidism, unspecified (principal); E66.9 Obesity, unspecified; Z68.37 Body mass index [BMI] 37.0-37.9, adult; Z85.850 Personal history of malignant neoplasm of thyroid; E78.00 Pure hypercholesterolemia, unspecified; R73.02 Impaired glucose tolerance (oral); G47.33 Obstructive sleep apnea (adult) (pediatric); I10 Essential (primary) hypertension; R07.9 Chest pain, unspecified; F41.1 Generalized anxiety disorder
CPT/HCPCS: 99214

== ENCOUNTER 2023-11-07 09:43 | Outpatient (AMB) | payer OTHER, SELFPAY ==
--- NOTE | 2023-11-07 10:02 | MHC.OFFVIS ---
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 Patient had sleep study done last year was told she has apnea,she has the machine but doesn't use it because she thought the test wasnt accurate Allergies Penicillins [PCN] Allergy (Unknown, Verified 11/07/23 10:09) UNKNOWN Medication List - Last Reconciled 11/07/23 by PADMINI Toro [AutoPAP mode and pressure setting of 6-16 cm water humidified AIR As directed] carvedilol 12.5 mg PO BID cholecalciferol (vitamin D3) 50 mcg PO DAILY estradiol patches transdermal levothyroxine 88 mcg orally once a day x 6 days one 1.5 tab; simvastatin 10 mg PO DAILY 90 days HPI Comments Details: 63yr-old female presents for new in-person patient visit for sleep consultation. Pt reports she underwent HST last September as her was worried that she had episodes of apneas and snoring as well as daytime sleepiness.. Her HST showed moderate obstructive sleep apnea w/ AHI 16.6/hr w/ Average SpO2 91%, O6xrkyr 75% w/ SpO2 < 90% x's 82 min and < 88% x's 20 min. She is interested in re-assessing her sleep apnea dx and tx options. Pt reports she received her CPAP machine, but cannot tolerate it. She does have bruxism, but has not tolerated her mouth guard. She does continue to have snoring, apneas, nocturnal choking sensation, daytime sleepiness- needs to take naps and easily falls asleep. She notes that she has enlarged tonsils, which were never removed. She has a h/o thyroid cancer- states this has been treated. Denies asthma, but recently told she is having allergy s/s. [facility] Medical History (Updated 11/07/23 @ 11:11 by PADMINI Toro) Witnessed apneic spells Labile hypertension Anxiety Impaired glucose tolerance Peripheral vascular disease Hypercholesterolemia History of thyroid cancer Hypothyroid Obesity (BMI 30-39.9) Surgical History History of hysterectomy History of thyroidectomy Family History Father Diabetes Hypertension CVD (cardiovascular disease) Mother CVD (cardiovascular disease) Hypertension Sister In good health Lung cancer Sister In good health Sister In good health Son In good health Paternal Uncle Myocardial infarction Maternal Uncle Myocardial infarction Social History Housing: House Alcohol intake: never Patient Tobacco Use Status: Never used Tobacco e-Cigarette/Vaping Use: Never Used Second Hand Smoke Exposure: No service: No Current occupational status: employed Current occupational exposures/hazards: No Cognitive needs: No Hearing needs: No Vision needs: Yes Review of Systems Const All systems reviewed & are unremarkable except as noted in HPI and below Physical Exam Vital Signs: Last Vital Signs Pulse 80 11/07/23 10:03 BP 140/88 H 11/07/23 10:03 Pulse Ox 96 11/07/23 10:03 BMI result Body Mass Index 36.9 Const General: no acute distress Orientation/consciousness: patient oriented x3 HEENT Other: Mallampati grade IV Small posterior oropharynx opening. Resp Effort & Inspection: able to speak in complete sentences Neuro General: patient oriented x3 Psych Mental Status: mental status grossly normal Speech and movement: Clear speech present Attitude: cooperative Telehealth Telehealth Location of provider rendering services: practice address Location of patient: address on file Patient Identification confirmed using: Name, : Yes Telehealth method: voice only Patient verbally consented to treatment: Yes Patient verbally consented to billing insurance company: Yes Patient informed of any privacy concerns related to visit: Yes Assessment & Plan Assessment & Plan (1) Moderate obstructive sleep apnea: Code(s): G47.33 - Obstructive sleep apnea (adult) (pediatric) Category: Medical (2) Nocturnal hypoxemia: Code(s): G47.34 - Idiopathic sleep related nonobstructive alveolar hypoventilation Category: Medical (3) Enlarged tonsils: Code(s): J35.1 - Hypertrophy of tonsils Category: Medical (4) Witnessed apneic spells: Code(s): R06.81 - Apnea, not elsewhere classified Category: Medical (5) Excessive daytime sleepiness: Code(s): G47.19 - Other hypersomnia Category: Medical Plan Pt advised to undergo in-lab PAP titration/split night PSG for AHI > 15/hr. Will refer pt to Dr Adams, [facility] if pt is a candidate for alternate tx options for SARY. Future considerations- mandibular device. Case discussed w/ Dr Tali Muñoz. Orders: Orders RT PSG in-lab sleep titration Today G47.19 - Other hypersomnia, G47.33 - Obstructive sleep apnea (adult) (pediatric), G47.34 - Idiopathic sleep related nonobstructive alveolar hypoventilation, R06.81 - Apnea, not elsewhere classified Referrals Ear/Nose/Throat Referral G47.33 - Obstructive sleep apnea (adult) (pediatric), G47.34 - Idiopathic sleep related nonobstructive alveolar hypoventilation, J35.1 - Hypertrophy of tonsils Coding Level of Care Code New Pt Level 3 (29103) Diagnoses Moderate obstructive sleep apnea G47.33 Nocturnal hypoxemia G47.34 Enlarged tonsils J35.1 Witnessed apneic spells R06.81 Excessive daytime sleepiness G47.19 Sabula Sleepiness Scale Questions Sitting and reading: moderate chance of dozing Watching TV: moderate chance of dozing Sitting inactive in a theater, movie etc.: moderate chance of dozing As a passenger in a car for an hour without break: would never doze Lying down in the afternoon when circumstances permit: high chance of dozing Sitting and talking to someone: would never doze Sitting quietly after lunch without alcohol: moderate chance of dozing In a car, while stopped for a few minutes in the traffic: would never doze ESS < 10: normal, ESS > 12: pathologic: 11
[2023-11-07 10:03] VITALS: BP 140/88; PULSE 80; O2SAT 96; BMI 36.9
== END 2023-11-07 10:50 | disposition home or self-care (01) ==
PROVIDERS: PCP Obstetrics & Gynecology Gynecology; Visit Provider Nurse Practitioner Family
DX: G47.33 Obstructive sleep apnea (adult) (pediatric) (principal); G47.34 Idiopathic sleep related nonobstructive alveolar hypoventilation; J35.1 Hypertrophy of tonsils; G47.19 Other hypersomnia
CPT/HCPCS: 99203

== ENCOUNTER → 2023-11-07 09:43 | Outpatient (BNVA) | payer OTHER, SELFPAY | PROVIDERS: PCP Obstetrics & Gynecology Gynecology; Visit Provider Nurse Practitioner Family ==

== ENCOUNTER 2024-03-12 09:14 | Outpatient (AMB) | payer OTHER, SELFPAY ==
--- NOTE | 2024-03-12 09:17 | MHC.PC.OV ---
Vital Signs 03/12/24 09:18 03/12/24 09:53 Height 5 ft 2 in Weight 205 lb 2 oz BMI 37.5 BP 130/70 112/60 Blood Pressure Location Lt brachial Lt brachial Position Sitting Sitting Pulse 73 Pulse Source Pulse Oximeter Pulse Oximetry (%) 97 Oxygen Delivery Method Room Air Intake Visit Reasons: Hypertension Intake Note: Patient is here to follow up on HTN. Fuel Testing Technician Required: No Regulatory Agency Director: Not Required per policy Accompanied by: Self / Same As Patient Allergies Penicillins [PCN] Allergy (Unknown, Verified 03/12/24 09:18) UNKNOWN Tobacco use date assessed: 03/12/24 Dental Screening Dental Screen Date: 07/18/23 HPI Hypertension HPI Details 63-year-old obese female with hypothyroid with a history of thyroid cancer hypercholesterolemia impaired glucose tolerance severe obstructive sleep apnea hypertension and generalized anxiety disorder last seen in 11/03/2023. Patient's colonoscopy up-to-date May 2018 mammogram is up-to-date 06/04/2023. Patient does follow-up with endocrinology and had some blood work in January. Patient has concerns about the sleep apnea has the machine but is very skeptical about the results and was advised to repeat the test. And also referred to ear nose and throat.. cancelled schedule due to insurance issues. [facility] Medical History (Updated 03/12/24 @ 09:47 by Kaci Eubanks MD) Moderate obstructive sleep apnea Witnessed apneic spells Labile hypertension Anxiety Impaired glucose tolerance Peripheral vascular disease Hypercholesterolemia History of thyroid cancer Hypothyroid Obesity (BMI 30-39.9) Surgical History History of hysterectomy History of thyroidectomy Family History Father Diabetes Hypertension CVD (cardiovascular disease) Mother CVD (cardiovascular disease) Hypertension Sister In good health Lung cancer Sister In good health Sister In good health Son In good health Paternal Uncle Myocardial infarction Maternal Uncle Myocardial infarction Social History Housing: House Alcohol intake: never Patient Tobacco Use Status: Never used Tobacco e-Cigarette/Vaping Use: Never Used Second Hand Smoke Exposure: No service: No Current occupational status: employed Current occupational exposures/hazards: No Cognitive needs: No Hearing needs: No Vision needs: Yes Questionnaire Thrive Questionnaire Date Thrive assessed: 07/18/23 Are you currently unemployed and looking for a job?: I choose not to answer this question YOLANDA-7 AMB Questionnaire YOLANDA-7 Date YOLANDA - 7 assessed: 07/18/23 Source: Developed by Drs. Vin Vallejo, Dalia Lui, Chacorta Doran and colleagues, with an educational severiano from [employer]. Physical exam (Primary Care) Vital Signs: Last Vital Signs Pulse 73 03/12/24 09:18 BP 130/70 03/12/24 09:18 Pulse Ox 97 03/12/24 09:18 Oxygen Delivery Method Room Air 03/12/24 09:18 BMI result Body Mass Index 37.5 Tobacco/Smoking Status: Tobacco use Status Tobacco use date assessed 03/12/24 03/12/24 09:23 Patient Tobacco Use Status Never used Tobacco 03/12/24 09:23 e-Cigarette/Vaping Use Never Used 03/12/24 09:23 Thrive Assessment: Date of Thrive Assessment Date Thrive assessed 07/18/23 03/12/24 09:23 Const General: alert; No acute distress Eyes Conjunctivae: conjunctivae normal Resp Auscultation: clear to auscultation bilaterally Cardio Rate: regular rate Rhythm: regular rhythm GI Inspection: Yes normal to inspection Extrem General: Yes normal to inspection and No edema Assessment and Plan Assessment & Plan (1) Hypertension: Code(s): I10 - Essential (primary) hypertension Plan: Continue with blood pressure medication. Decrease salt intake and exercise patient has been placed on carvedilol 12.5 mg twice a day. discussed about Blood pressure and it is good right now. (2) Severe obstructive sleep apnea: Comment: September 2022 Code(s): G47.33 - Obstructive sleep apnea (adult) (pediatric) Plan: Patient was skeptical about the results and has seen Neurology who is going to do an in-lab sleep study. Patient was also referred to the ear nose and throat for alternative treatments. (3) Impaired glucose tolerance: Comment: discussed about diet and exercise Code(s): R73.02 - Impaired glucose tolerance (oral) Plan: Decrease the amount of carbohydrate intake, pasta, bread, rice and potatoes are all sugar and that is aside from all the sweet stuff, remember that fruits are good but they are Sweet also. 10/2023 for was last test (4) Hypercholesterolemia: Comment: goal of LDL is less than 130 Code(s): E78.00 - Pure hypercholesterolemia, unspecified Plan: Avoid fried foods, chicken skin, eggs, butter margarine, pastries and meat. Be it pork or beef they have a lot of cholesterol patient on simvastatin 10 mg once a day October 2023 last test (5) Hypothyroid: Code(s): E03.9 - Hypothyroidism, unspecified Qualifiers: Hypothyroidism type: acquired Qualified Code(s): E03.9 - Hypothyroidism, unspecified Plan: Continue with thyroid medication and is being followed up by Endocrinology in [facility] (6) Obesity (BMI 30-39.9): Code(s): E66.9 - Obesity, unspecified Plan: Diet and exercise Medications: Refilled simvastatin 10 mg PO DAILY 90 days 90 tabs 2RF E78.00 - Pure hypercholesterolemia, unspecified Coding Level of Care Code Est Pt Level 4 (14630) Diagnoses Hypertension I10 Severe obstructive sleep apnea G47.33 Impaired glucose tolerance R73.02 Hypercholesterolemia E78.00 Acquired hypothyroidism E03.9 Hypothyroidism type: acquired Obesity (BMI 30-39.9) E66.9
[2024-03-12 09:18] VITALS: BP 130/70; PULSE 73; O2SAT 97; BMI 37.5
[2024-03-12 09:53] VITALS: BP 112/60
== END 2024-03-12 10:05 | disposition home or self-care (01) ==
PROVIDERS: PCP Internal Medicine; Visit Provider Internal Medicine
DX: I10 Essential (primary) hypertension (principal); G47.33 Obstructive sleep apnea (adult) (pediatric); R73.02 Impaired glucose tolerance (oral); E78.00 Pure hypercholesterolemia, unspecified; E03.9 Hypothyroidism, unspecified; E66.9 Obesity, unspecified

== ENCOUNTER 2024-04-02 10:29 | Outpatient (REF) | payer OTHER, SELFPAY ==
[2024-04-02 10:42] LABS: MANUAL DIFF FLAG NO
[2024-04-02 11:26] LABS: Basophils Absolute Auto 0.1 X10*3/uL (0.0-0.2); Basophils Percent Auto 0.8 % (0-2); Eosinophils Absolute Auto 0.3 X10*3/uL (0.0-0.4); Hemoglobin 12.8 g/dl (12.0-16.0); Imm Gran Abs Auto 0.08 X10*3/uL (0.00-0.03); Lymphocytes Absolute Auto 2.3 X10*3/uL (1.2-4.9); Lymphocytes Percent Auto 27.9 % (20-40); Mean Corpuscular HGB Conc 32.8 g/dl (31.0-35.0); Mean Corpuscular Hemoglobin 30.7 pg (27.0-33.0); Mean Corpuscular Volume 93.5 fL (80.0-98.0); Mean Platelet Volume 10.3 fL (9.4-12.3); Monocytes Absolute Auto 0.6 X10*3/uL (0.1-1.2); Neutrophils Absolute Auto 4.9 x10*3/uL (2.0-8.3); Neutrophils Percent Auto 59.3 % (45-73); Platelet Count 216 X10*3/uL (160-400); Red Blood Count 4.17 X10*6/uL (4.20-5.50); Red Cell Distribution Width 13.3 % (11.0-16.0); White Blood Count 8.3 X10*3/uL (4.8-10.8)
[2024-04-02 12:26] LABS: Anion Gap 12 (12-20); Blood Urea Nitrogen 16 mg/dL (9-16); Calcium 8.6 mg/dL (8.4-10.2); Carbon Dioxide 28 mmol/L (22-29); Chloride 106 mmol/L (96-108); Estimated Glomerular Filt Rate > 60; Potassium 4.3 mmol/L (3.3-5.1); Sodium 142 mmol/L (135-145)
[2024-04-02 13:34] LABS: Creatinine Urine 36.85 mg/dL; Total Protein Urine Random < 7 mg/dL (<12)
== END 2024-04-02 10:30 | disposition home or self-care (01) ==
LOC: HO.LAB 10:29
PROVIDERS: PCP Internal Medicine; Visit Provider Internal Medicine Nephrology
DX: I10 Essential (primary) hypertension (principal)
CPT/HCPCS: 36415; 80051; 82310; 82565; 82570; 84156; 84520; 85025

== ENCOUNTER 2024-07-14 08:18 | Outpatient (REF) | payer OTHER, SELFPAY ==
[2024-07-14 08:31] LABS: MANUAL DIFF FLAG NO
[2024-07-14 09:03] LABS: Basophils Absolute Auto 0.1 X10*3/uL (0.0-0.2); Basophils Percent Auto 0.8 % (0-2); Eosinophils Absolute Auto 0.4 X10*3/uL (0.0-0.4); Eosinophils Percent Auto 4.8 % (0-4); Hematocrit 40.7 % (37.0-47.0); Hemoglobin 13.2 g/dl (12.0-16.0); Imm Gran Abs Auto 0.02 X10*3/uL (0.00-0.03); Imm Gran Pct Auto 0.3 % (0.0-0.4); Lymphocytes Percent Auto 27.5 % (20-40); Mean Corpuscular HGB Conc 32.4 g/dl (31.0-35.0); Mean Corpuscular Hemoglobin 30.4 pg (27.0-33.0); Mean Corpuscular Volume 93.8 fL (80.0-98.0); Monocytes Absolute Auto 0.4 X10*3/uL (0.1-1.2); Monocytes Percent Auto 6.1 % (2-11); Neutrophils Absolute Auto 4.4 x10*3/uL (2.0-8.3); Neutrophils Percent Auto 60.5 % (45-73); Platelet Count 211 X10*3/uL (160-400); Red Blood Count 4.34 X10*6/uL (4.20-5.50); Red Cell Distribution Width 13.2 % (11.0-16.0); White Blood Count 7.3 X10*3/uL (4.8-10.8)
[2024-07-14 09:10] LABS: Appearance Urine Cloudy; Color Urine Yellow; Glucose Urine UA Negative (Negative); Leukocyte Esterase Urine Negative (Negative); Nitrite Urine Negative (Negative); PH 5.5 (5.0-9.0); UMIC TRIGGER UACC YES; Urine Blood Trace (Negative); Urine Ketones Negative (Negative); Urine Protein Negative (Neg-Trace)
[2024-07-14 09:12] LABS: Estimated Average Glucose 114 mg/dL; Hemoglobin A1C 131.3347 umol/L; Hemoglobin A1c % 5.6 % (<6.0); Total Hemoglobin (HGBA1C) 3474.5431 umol/L
[2024-07-14 09:13] LABS: Bacteria Urine 2+ (None Seen); Hyaline Casts Urine 0-2 /LPF (0-2); WBC Urine 0-5 /HPF (0-5)
[2024-07-14 09:35] LABS: Alanine Aminotransferase 22 U/L (0-31); Albumin Level 3.9 g/dL (3.5-5.0); Anion Gap 12 (12-20); Aspartate Amino Transferase 24 U/L (5-31); Bilirubin Total 0.5 mg/dL (0.0-1.0); Blood Urea Nitrogen 15 mg/dL (9-16); C Reactive Protein 0.45 mg/dL (< or = 0.50); Calcium 8.8 mg/dL (8.4-10.2); Carbon Dioxide 27 mmol/L (22-29); Chloride 105 mmol/L (96-108); Cholesterol 210 mg/dL (<200); Estimated Glomerular Filt Rate > 60; Glucose Random 99 mg/dL (60-115); HDL Cholesterol 69 mg/dL (>40); LDL Cholesterol Calculated 122 mg/dL (<100); Magnesium 1.9 mg/dL (1.6-2.6); Potassium 4.7 mmol/L (3.3-5.1); Sodium 139 mmol/L (135-145); Total Protein 7.6 g/dL (6.5-8.0); Triglycerides 96 mg/dL (<150)
[2024-07-14 09:40] LABS: Erythrocyte Sedimentation Rate 14 MM/HR (0-20)
[2024-07-14 10:06] LABS: Ferritin 38 ng/mL (10-250); Free T4 (Free Thyroxine) 1.02 ng/dL (0.71-1.85); Thyroid Stimulating Hormone 2.81 uIU/mL (0.32-4.0); Vitamin D 25-OH Total 46.3 ng/mL (>30)
[2024-07-14 10:09] LABS: Folate 10.4 ng/mL (> or = 4.0); Vitamin B12 293 pg/mL (200-900)
[2024-07-14 11:01] LABS: Alkaline Phosphatase 77 U/L (39-117)
== END 2024-07-14 08:19 | disposition home or self-care (01) ==
LOC: HO.LAB 08:18
PROVIDERS: PCP Internal Medicine; Visit Provider Internal Medicine
DX: I10 Essential (primary) hypertension (principal); E78.00 Pure hypercholesterolemia, unspecified
CPT/HCPCS: 36415; 80053; 80061; 81001; 82306; 82607; 82728; 82746; 83036; 83735; 84439; 84443; 85025; 85652; 86140

== ENCOUNTER → 2024-07-15 12:13 | Outpatient (BNVA) | payer OTHER, SELFPAY | PROVIDERS: PCP Obstetrics & Gynecology Gynecology; Visit Provider Internal Medicine | DX: Z00.00 Encounter for general adult medical examination without abnormal findings (principal); R73.02 Impaired glucose tolerance (oral); E78.00 Pure hypercholesterolemia, unspecified; E03.9 Hypothyroidism, unspecified; E66.9 Obesity, unspecified; Z68.37 Body mass index [BMI] 37.0-37.9, adult; F41.1 Generalized anxiety disorder; G47.33 Obstructive sleep apnea (adult) (pediatric); I10 Essential (primary) hypertension; D17.1 Benign lipomatous neoplasm of skin and subcutaneous tissue of trunk; Z79.899 Other long term (current) drug therapy | CPT/HCPCS: 96127 ==

== ENCOUNTER 2024-07-20 09:48 | Outpatient (REF) | payer OTHER, SELFPAY ==
--- OUTSIDE RECORDS SUMMARY | 2024-07-20 11:33 | XMS_ITS | Clinical Summary ---
Author Organization [facility] Address [address] [facility] [address] [place] [address] Phone Care Team Providers Care Toll Testboard Worker Name Role Phone Kaci Eubanks MD Primary Care Provider [phone] Allergies Active Allergy Reactions Criticality Noted Date Comments Penicillins Other (see comments) 04/26/2008 Medications Cholecalciferol 50 MCG (1999) capsule Take 1 capsule by mouth 1 (one) time each day Active Levoxyl 88 MCG tablet 1 Active simvastatin (ZOCOR) 10 MG tablet Take 10 mg by mouth at bed time 1 Active estradiol (VIVELLE-DOT) 0.0375 MG/24HR APPLY 1 PATCH TOPICALLY TO THE SKIN 2 TIMES A WEEK 2 Active Calcium 600-5 MG-MCG tablet Take 1 tablet by mouth 1 (one) time each day Active carvedilol (COREG) 12.5 MG tabletIndicatio ns:Hypertension Take 1 tablet (12.5 mg total) by mouth in the morning and 1 tablet (12.5 mg total) in the evening. Take with meals. 180 tablet 3 4 10/14/19 25 Active hydroCHLOROthia zide 25 MG tabletIndicatio ns:Hypertension Take 1 tablet (25 mg total) by mouth 1 (one) time each day 30 tablet 11 4 04/06/20 25 Active Active Problems Problem Noted Date Diagnosed Date Vaginitis and vulvovaginitis in diseases classified elsewhere 09/30/2022 Chest pain 09/30/2022 Gynecological examination normal 09/30/2022 Hyperlipidemia 09/30/2022 Hypothyroidism 09/30/2022 Menopausal symptom 09/30/2022 Hypertension 10/11/2020 Overview (10/14/2023): Follow low NA diet Avoid NSAIDs/OTC Decongestant medications Recommend weight loss for healthy BMI Target BP <120/80 Assessment & Plan (04/06/2024 4:42 PM EDT): Blood pressure remains sub optimally controlled Taking single therapy Carvedilol 12.5 mg BID No Edema Start HCTZ 25 mg QD Check BMP in 1 week Recommend continue monitoring BP at home, record and bring list of readings in to next visit Assessment & Plan (10/14/2023 8:42 PM EDT): Blood pressure sub optimally controlled Taking single therapy Carvedilol 6.25 mg BID No Edema Increase Carvedilol to 12.5 mg BID Recommend monitoring BP at home, record and bring list of readings in to next visit Check Renal panel and urine alb/creat ratio prior to next visit Family History Medical History Relation Comments Heart disease Father Hypertension Father Hypertension Mother Kidney disease Sibling sister - lupus Relation Status Comments Father Mother Sibling Social History Tobacco Use Types Packs/Day Years Used Date Smoking Tobacco: Never Smokeless Tobacco: Never Tobacco Cessation:Counseling Given: Not Answered Alcohol Use Standard Drinks/Week Comments No 0 (1 standard drink = 0.6 oz pur e alcohol) Comments Unknown Sex and Gender Information Value Date Recorded Sex Assigned at Not on file Legal Sex Female 4:53 PM EST Gender Identity Not on file Sexual Orientation Not on file Last Filed Vital Signs Vital Sign Reading Time Taken Comments Blood Pressure 120/80 04/06/2024 3:21 PM EDT Pulse 64 04/06/2024 3:21 PM EDT Temperature - - Respiratory Rate - - Oxygen Saturation 97% 10/02/2022 3:01 PM EDT Inhaled Oxygen Concentration - - Weight 92.5 kg (204 lb) 04/06/2024 3:21 PM EDT Height 160 cm (5' 3 ) 09/22/2020 3:46 PM EDT Body Mass Index 36.14 09/22/2020 3:46 PM EDT Plan of Treatment Upcoming Encounters Date Type Department Care Team (Late st Contact Info) Description 08/16/2024 1:30 PM EST Office Visit [facility] P.CLesly [address] [address] Derick EloANDI [address] [address] Health Maintenance Due Date Last Done Comments Breast Cancer Screening 1960 Pneumococcal Vaccine: Pediat rics (0 to 5 Years) and At-Risk Patients (6 to 64 Years) (1 of 2 - PCV) 1967 Colorectal Cancer Screening: Annual FOBT 2010 Colorectal Cancer Screening: Colonoscopy 2010 Colorectal Cancer Screening: Sigmoidoscopy 2010 Influenza Vaccine (#1) 2024 Hepatitis B Vaccine Aged Out No longe r eligible based on patient's age to complete this topic Insurance CIGNA CIGNA Care Teams Toll Testboard Worker Relationship Specialty Start Date End Date Kaci Eubanks MD [facility] [address] [place] PCP - General 06/26/20
== END 2024-07-20 09:49 | disposition home or self-care (01) ==
LOC: HO.LNP 09:48
PROVIDERS: PCP Internal Medicine; Visit Provider Surgery
DX: L72.0 Epidermal cyst (principal)
CPT/HCPCS: 11404; 88304

== ENCOUNTER 2024-07-27 13:57 | Outpatient (AMB) | payer OTHER, SELFPAY ==
--- NOTE | 2024-07-27 14:03 | MHC.OFFVIS ---
Intake Visit Reasons: s/p exision lipoma Intake Note: Patient here s/p WLE cyst on Rt mid lat back. Reports incision healing well. Patient c/o: no concerns. Corporate Relations Manager Required: No Accompanied by: Self / Same As Patient Allergies Penicillins [PCN] Allergy (Unknown, Verified 07/27/24 14:05) UNKNOWN HPI Comments Details: Patient presents for follow-up. She has no wound issues or complaints. Pathology is benign [facility] Medical History Moderate obstructive sleep apnea Witnessed apneic spells Labile hypertension Anxiety Impaired glucose tolerance Peripheral vascular disease Hypercholesterolemia History of thyroid cancer Hypothyroid Obesity (BMI 30-39.9) Surgical History History of hysterectomy History of thyroidectomy Family History Father Diabetes Hypertension CVD (cardiovascular disease) Mother CVD (cardiovascular disease) Hypertension Sister In good health Lung cancer Sister In good health Sister In good health Son In good health Paternal Uncle Myocardial infarction Maternal Uncle Myocardial infarction Social History Housing: House Alcohol intake: never Patient Tobacco Use Status: Never used Tobacco Tobacco use type: Cigarette Years Smoked: high school e-Cigarette/Vaping Use: Never Used Second Hand Smoke Exposure: No service: No Current occupational status: employed Current occupational exposures/hazards: No Cognitive needs: No Hearing needs: No Vision needs: Yes Physical Exam Back/Spine/Pelvis Other: Wound is well healed. Assessment & Plan Assessment & Plan (1) Visit for wound check: Code(s): Z51.89 - Encounter for other specified aftercare Category: Surgical Plan Patient was been given local wound instructions including avoiding strenuous activities and will otherwise follow-up p.r.n.. All questions answered. Coding Level of Care Code Global (89316) Diagnoses Visit for wound check Z51.89
== END 2024-07-27 14:06 | disposition home or self-care (01) ==
PROVIDERS: PCP Internal Medicine; Visit Provider Surgery
DX: Z51.89 Encounter for other specified aftercare (principal)
CPT/HCPCS: 99024

== ENCOUNTER 2024-10-22 11:49 | Outpatient (REF) | payer OTHER, SELFPAY ==
--- OUTSIDE RECORDS SUMMARY | 2024-10-22 12:19 | XMS_ITS ---
Author Organization [facility] Address [address] [address] Care Team Providers Care Grade Setter Name Role Phone BREANNA PETTIT M.D. 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 :1960???Age:63 Y???Sex:Female D ate:04/30/2024 Address:[address] [place] [address] [facility] Pcp:BREANNA PETTIT M.D. Subjective: * Chief Complaints: * ???1. Annual PRECISION LENS GENERATOR Physical. * Medical History:?Hypothyroid ism, unspecified, Menopausal and female climacteric states, Hormone replacement therapy (postmenopausal), Inconclusive mammogram, Personal history of malignant neoplasm of thyroid. * Activities Assistant History:?/ Para?1/1.?Sexual activity?currently sexually active.?Last Pap Smear:?09/13/13.?Mammogram:?06/10/23 < 50% density, 05/21/21 50-75% density, 05/17/20 < 50% density, 04/13/19 < 50% density, 03/27/18 < 50% density, 01/2017 normal, 01/2016, normal, 01/13/15 < 50% density, 12/24/13.?LMP and menses?Hyst.?Hysterectomy:?Yes, CAROLE/BSO.?Colonoscopy?2018, 2007.?Bone Density:?06/13/23.?PRECISION LENS GENERATOR HISTORY MISC.?01/13/15 Bere Score 9%.? * OB History:?Total pregnancies?1.?Total living children?1.?NVD?1.? * Allergies:?Penicillin: Unkno wn - Allergy. Objective: * Vitals:? Assessment: Plan: * Treatment: * Images: Billing Information: * Visit Code:? * Procedure Codes:? * Electronic signature of Ezekiel Eid MD on 10/22/2024 at 12:19 PM EDT Sign off status: Pending * Appointment Provider:?Daniella Eid M.D. Date:?04/30/2024 Generated for Elier glover/Mitchell/Justinitting on:?10/22/2024 12:19 PM EDT
--- OUTSIDE RECORDS SUMMARY | 2024-10-22 12:20 | XMS_ITS | Patient Health Record ---
Author Organization [facility] Address [address] [facility] [address] [place] [address] Care Team Providers Care Process Safety Engineering Technologist Name Role Phone BREANNA PETTIT M.D. Primary Care Provider Daniella Fabian Unavailable [phone] Allergies Allergen (clinical drug ingredient) Drug/Non Drug Allergy documented on EMR Reaction Allergy Type Onset Date Status Penicillin Unknown Drug Allergy Active Results Component Value Reference Range Notes Urinalysis Reviewed date:07/30/2024 03:31:26 PM Interpretation: Performing Lab: Notes/Report: PH 5.0 PROTEIN Neg GLUCOSE Neg BLOOD Moderate Reason For Referral No Information Medications Medication SIG (Take, Route, Frequency, Duration) Notes Start Date End Date Status Calcium 500MG ORAL for -3 08/09/2011 Act jade Carvedilol 6.25 MG take 1 tablet by candy th twice a day Oral for 90 Active Levoxyl 88 MCG 1 Orally daily 08/09/2011 Active Simvastatin 10 MG 1 tablet in the even ing Orally Once a day Active Estradiol 0.0375 MG/24HR 1 patch to skin Transdermal Two times a Week for 90 days 07/30/2024 Active Estradiol 0.0375 MG/24HR APPLY 1 PATCH T WICE A WEEK for 84 Active Vitamin D3 50 MCG (1999 [place]) 1 capsule Orally Once a day for 30 day(s) Active Social History Tobacco Use: Social History Observation Description Date Details (start date - stop date) Never Smoker NA - NA AUDIT-C (Standard) Question Answer Notes Did you have a drink containing alcohol in the p ast year? No Points 0 Interpretation Negative Tobacco Control (Standard) Question Answer Notes Tobacco use: Nonsmoker Problems Problem Type SNOMED Code ICD Code Onset Dates Problem Status W/U Status Risk Notes Problem History of malignant neoplasm of thyroid (299049370) Personal history of malignant neoplasm of thyroid (Z85.850) Active confirmed Problem Menopause (171349955) Menopausal and female climacteric states (N95.1) Active confirmed Problem Hypothyroidism (30072415) Unspecified hypothyroidism (244.9) Active confirmed Major Problem Vulvovaginitis (disorder) (65818474) Unspecified vaginitis and vulvovaginitis (616.10) Active confirmed Diag Problem Menopausal symptom (41438303) Symptomatic menopausal or female climacteric states (627.2) Active confirmed Major Problem Gynecological examination normal (201337188527646) Routine gynecological examination (V72.31) Active confirmed Major Problem Screening for malignant neoplasm of colon (927226343) Special screening for malignant neoplasms, colon (V76.51) Active confirmed Major Vital Signs Temperature 97.5 degrees Fahrenheit 07/30/2024 Blood pressure diastolic 92 mm Hg 07/30/2024 Height 62.5 in 07/30/2024 Blood pressure systolic 128 mm Hg 07/30/2024 Weight 207 lbs 07/30/2024 BMI 37.25 kg/m2 07/30/2024 Encounters Encounter Location Date Provider Diagnosis [address] [place] [address] 07/30/2024 Daniella Eid Encounter for gynecological examination (general) (routine) without abnormal findings Z01.419 ; Encounter for screening mammogram for malignant neoplasm of breast Z12.31 ; Hormone replacement therapy Z79.890 and Hematuria, unspecified R31.9 Assessments Encounter Date Diagnosis (ICD Code) Assessment Notes Treatment Notes Treatment Clinical Notes Section Notes 07/30/2024 Encounter for gynecological examination (general) (routine) without abnormal findings (ICD-10 - Z01.419) NO MORE PAP TESTS. 07/30/2024 Encounter for screening mammogram for malignant neoplasm of breast (ICD-10 - Z12.31) REGULAR MAMMOGRAMS AND SBE'S WERE RECOMMENDED. 07/30/2024 Hormone replacement therapy (ICD-10 - Z79.890) DISCUSSED BENEFITS AND RISKS OF HRT. PAT WANTS TO CONTINUE AND HAS NO CONTRAINDICATIO NS. RX FOR ESTRADIOL CREAM WAS SENT. 07/30/2024 Hematuria, unspecified (ICD-10 - R31.9) DISCUSSED MICROSCOPIC HEMATURIA. PREVIOUS OFFICIAL UA SHOWED NO RBC'S. PAT REMAINS ASYMPTOMATIC. Plan Of Treatment Pending Test Test Name Order Date MAMMOGRAM, SCREENING 09/16/2014 MAMMOGRAM, SCREENING 04/19/2022 MAMMOGRAM, SCREENING 04/25/2023 MAMMOGRAM, SCREENING 07/30/2024 Urinalysis 04/19/2022 Urinalysis 01/30/2018 BONE DENSITY 04/25/2023 MM Digital Mammo Screening 07/30/2024 MM Digital Mammo Screening 04/25/2023 MM Digital Mammo Screening 02/22/2019 MM Digital Mammo Screening 02/25/2020 MM Digital Mammo Screening 03/23/2021 MM Digital Mammo Screening 04/19/2022 MM Digital Mammo Screening 11/22/2016 Next Appt Details Provider Name:Daniella bernabe, 08/05/2025 02:00:00 PM, [address], [address], [place], [address], Insurance Providers Payer Name Payer Address Payer Phone Subscriber Number Group Number Insured Name Patient Relationship to Insured Coverage Start Date [facility]age End Date [facility] [address] [place] [id number] HEIDI LOCKWOOD Spouse - patient is the spouse of the insured 4 Medical (General) History Medical History History ICD Code Hypothyroidism, unspecified E03.9 Menopausal and female climacteric states N95.1 Hormone replacement therapy (postmenopau flory) Z79.890 Inconclusive mammogram R92.2 Personal history of malignant neoplasm o f thyroid Z85.850 Surgical History Surgery Date(Month/Year) Colonoscopy CAROLE/BSO S/P Thyroidectomy - Thyroid Cancer 2008 Hospitalization History Reason Date(Month/Year) See Surgical Hx 1 Vaginal Delivery
--- OUTSIDE RECORDS SUMMARY | 2024-10-22 12:20 | XMS_ITS ---
Author Organization [facility] Address [address] [place] [address] Care Team Providers Care Telephone Ad Taker Name Role Phone BREANNA PETTIT M.D. 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 HELPER Physical, Annual CONDUIT HELPER Physical 60-85+ Medications Medication SIG (Take, Route, Frequency, Duration) Notes Start Date End Date Status Carvedilol 6.25 MG take 1 tablet by candy twice a day Oral for 90 Active Estradiol 0.0375 MG/24HR 1 patch to skin Transdermal Two times a Week for 90 days 07/30/2024 Active Estradiol 0.0375 MG/24HR APPLY 1 PATCH T WICE A WEEK for 84 Active Vitamin D3 50 MCG (1999) 1 capsule Orally Once a day for 30 day(s) Active Calcium 500MG ORAL for -3 08/09/2011 Act jade Levoxyl 88 MCG 1 Orally daily 08/09/2011 Active Simvastatin 10 MG 1 tablet in the even ing Orally Once a day Active Social History Tobacco Use: Social History Observation Description Date Details (start date - stop date) Never Smoker NA - NA AUDIT-C (Standard) Question Answer Notes Did you have a drink containing alcohol in the p ast year? No Points 0 Interpretation Negative Tobacco Control (Standard) Question Answer Notes Tobacco use: Nonsmoker Vital Signs Temperature 97.5 degrees Fahrenheit 07/30/19 25 Blood pressure systolic 128 mm Hg 07/30/19 25 Blood pressure diastolic 92 mm Hg 025 Height 62.5 in 07/30/2024 Weight 207 lbs 07/30/2024 BMI 37.25 kg/m2 07/30/2024 Encounters Encounter Location Date Provider Diagnosis Total [address] [place] [address] 07/30/2024 Daniella Eid Encounter for gynecological examination [...] RBC'S. PAT REMAINS ASYMPTOMATIC. Plan Of Treatment Medication Medication Name Sig Start Date Stop Date Notes Estradiol 0.0375 MG/24HR 1 patch to skin Transdermal Two times a Week for 90 days 07/30/2024 Treatment Notes Assessment Notes Encounter for gynecological examination (general) (routine) without abnormal findings NO MORE PAP TESTS. Encounter for screening mamm ogram for malignant neoplasm of breast REGULAR MAMMOGRAMS AND SBE'S WERE RECOMMENDED. Hormone replacement therapy DISCUSSED BENEFITS AND RISKS OF HRT. PAT WANTS TO CONTINUE AND HAS NO CONTRAINDICATIONS. RX FOR ESTRADIOL CREAM WAS SENT. Hematuria, unspecified DISCUSSED MICROSCOPIC HEMATURIA. PREVIOUS OFFICIAL UA SHOWED NO RBC'S. PAT REMAINS ASYMPTOMATIC. Pending Test Test Name Order Date MAMMOGRAM, SCREENING 07/30/2024 MM Digital Mammo Screening 07/30/2024 Next Appt Details Follow Up: 1 Year, Reason: Provider Name:Daniella bernabe, 08/05/2025 02:00:00 PM, [address] [facility], [address], [place], [address], Progress Notes * RODRICK LOCKWOODDOB:[birth year] (64 yo F)Acc No.[id number]:07/30/2024 PROGRESS NOTES Patient:?RODRICK LOCKWOOD Appointment Provider:?Daniella bernabe M.D. :1960???Age:64 Y???Sex:Female D ate:07/30/2024 Address:[address] [place] [address], [id number] Pcp:BREANNA PETTIT M.D. Subjective: * Chief Complaints: * ???Annual CONDUIT HELPER PhysicalAnnual CONDUIT HELPER Physical 60-85+ * HPI: ???New/Follow-up Patient Consult:? S/P TAHBSO IN 2007 FOR BENIGN OVARIAN CYSTS.? SHE IS ON ESTRADIOL PATCH 0.0375 MG TWICE WEEKLY AND IS DOING WELL. S/P THYROIDECTOMY IN 2008 FOR THYROID CA.? NO RECURRENCE. SHE HAS HAD MICROSCOPIC HEMATURIA FOR YEARS, WORK UP WAS NEGATIVE. HER MOTHER 3 MONTHS AGO.? SHE WAS 89 YEARS OLD.? THE PAT IS GRIEVING BADLY. HER LAST MAMMOGRAM DONE IN MAY 2023 SHOWED BREASTS ARE NOT DENSE AND WAS NORMAL. HER LAST PAP TEST IN 2013 WAS NEGATIVE.? SHE HAS NO HX OF ABNORMAL PAP TESTS. HER L AST BMD IN 2022 WAS NORMAL. SHE HAD A COLONOSCOPY DONE IN 2018, Q 10 YEARS. ???Annual:? Patient presents for annual exam, ages 60-85, postmenopausal. ?General Health Maintenance:?Current breast complaints:?no breast pain, mass, discharge, or skin changes ?Urinary problems:?patient reports no urinary health problems or bowel health problems ?Calcium intake:?takes adequate calcium via diet and supplementation ?Significant CONDUIT HELPER problems:?no significant concrete sculptor symptoms or problems * ROS:?general:?no?chest pain.?no?palpitations.?no?headache.?no?cough.?no?shortness of breath.?no?fever.?no?unexplained weight loss.?no?nausea/vomiting.?no?change in bowel movements.?no blood in stool.?no?genitourinary complaints.?no?skin complaints.? * Medical History:? * [employer] Professor History:?/ Para?1/1.?Sexual activity?currently sexually active.?Last Pap Smear:?09/13/13.?Mammogram:?06/10/23 < 50% density, 05/21/21 50-75% density, 05/17/20 < 50% density, 04/13/19 < 50% density, 03/27/18 < 50% density, 01/2017 normal, 01/2016, normal, 01/13/15 < 50% density, 12/24/13.?LMP and menses?Hyst.?Hysterectomy:?Yes, CAROLE/BSO.?Colonoscopy?2018, 2008.?Bone Density:?06/13/23.?CONDUIT HELPER HISTORY MISC.?01/13/15 Bere Score 9%.? * OB History:?Total pregnancies?1.?Total living children?1.?NVD?1.? * Surgical History:?Colonoscop y CAROLE/BSO S/P Thyroidectomy - Thyroid Cancer 2009 * Hospitalization/Major Diagno stic Procedure:?1 Vaginal Delivery See Surgical Hx * Family History:?Mother: ronaldo alvares, well.?Father: .? * Social History:?Tobacco Use:?Tobacco Control (Standard)?Tobacco use:?Nonsmoker ???Sexual History:?Sexual History?Had sex in the past 12 months (vaginal, oral, or anal)?: Yes, with: Men only, Use protection?: No, Have you ever had a Sexually transmitted disease?: No.?Details of Sexual History?Are you sexually active??Yes ???Drugs/Alcohol:?Drugs?Have you used drugs other than those for medical reasons in the past 12 months??No ???Miscellaneous:?Children: yes, 1. ?Domestic violence: no. ?Exercise: yes, walking. ?Home smoke detector use: yes. ?Living with: spouse. ?Marital status: . ?Natural support system: yes. ?Occupation: Works full-time. ?Sexual abuse: no. ?Sexually active: yes, monogamous relationship. ?Verbal abuse: no. ???Drug/Alcohol:?AUDIT-C (Standard)?Did you have a drink containing alcohol in the past year??No ?Points?0 ?Interpretation?Negative * Medications:?TakingVitamin D 3 50 MCG (2000 UT) Capsule 1 capsule Orally Once a day Levoxyl 88 MCG Tablet 1 Orally daily Simvastatin 10 MG Tablet 1 tablet in the evening Orally Once a day Calcium 500MG ORAL Carvedilol 6.25 MG Tablet take 1 tablet by mouth twice a day Oral Estradiol 0.0375 MG/24HR Patch Twice Weekly APPLY 1 PATCH TWICE A WEEK Taking Vitamin D3 50 MCG (2000 UT) Capsule 1 capsule Orally Once a day Taking Levoxyl 88 MCG Tablet 1 Orally daily Taking Simvastatin 10 MG Tablet 1 tablet in the evening Orally Once a day Taking Calcium 500MG ORAL Taking Carvedilol 6.25 MG Tablet take 1 tablet by mouth twice a day Oral Taking Estradiol 0.0375 MG/24HR Patch Twice Weekly APPLY 1 PATCH TWICE A WEEK DiscontinuedEstradiol 0.0375 MG/24HR Patch Weekly 1 patch to skin Transdermal EVERY WEEK , Notes to Pharmacist: Patient is short 4 patches. She will pay out of pocket for these. Good Rx ID: [id number], BIN: [id number], PCN: [id number], GRP: [id number]. We will try switching her to Minivelle after theseMedication List reviewed and reconciled with the patientDiscontinued Estradiol 0.0375 MG/24HR Patch Weekly 1 patch to skin Transdermal EVERY WEEK , Notes to Pharmacist: Patient is short 4 patches. She will pay out of pocket for these. Good Rx ID: [id number], BIN: [id number], PCN: [id number], GRP: [id number]. We will try switching her to Minivelle after theseMedication List reviewed and reconciled with the patient * Allergies:?Penicillin: Unkno wn - Allergyno[Allergies Verified] Objective: * Vitals:?Ht: 62.5 in, Wt:207l bs, BMI:37.25Index, BP:128/92mm Hg, Temp:97.5F. * Examination: ???General Exam: ?CONSTITUTIONAL:?General Appearance:?alert, in no acute distress, normal, well nourished ?NECK/THYROID:?Inspection/Palpation:?normal ?Thyroid:?normal size and shape ?RESPIRATORY:?Auscultation: clear to auscultation bilaterally, Respiratory Effort: normal.?CARDIOVASCULAR:?Auscultation: regular rate and rhythm.?BREAST, Right:?Inspection/Palpation:?no discharge, no masses present, no nipple retraction, no skin changes, no skin dimpling, no tenderness, no lymphadenopathy, no axillary mass, no axillary tenderness ?BREAST, Left:?Inspection/Palpation:?no discharge, no masses present, no nipple retraction, no skin changes, no skin dimpling, no tenderness, no lymphadenopathy, no axillary mass, no axillary tenderness ?GASTROINTESTINAL:?Abdomen:?no masses, nontender, nondistended ?Liver and Spleen:?normal ?Hernias:?no hernias present, no inguinal adenopathy ?MUSCULOSKELETAL:?Inspection/Palpation:?no clubbing, cyanosis, or edema ?SKIN:?Skin:?normal ?NEURO/PSYCH:?Orientation:?time , place, person ?Mood/Affect:?normal?Genitourinary: ?EXTERNAL GENITALIA:?External Genitalia:?normal, no lesions ?VAGINA:?Vagina:?normal appearance, no abnormal discharge, no lesions ?BLADDER:?Bladder:?no mass, nontender ?URETHRA:?Urethra:?no erythema or lesions present ?CERVIX:?Cervix:?surgically absent ?UTERUS:?Uterus:?surgically absent ?ADNEXA:?Adnexa:?surgically absent ?ANUS AND PERINEUM:?Anus/Perineum:?visually normal??? Assessment: * Assessment: 1.?Encounter for gynecologic al examination (general) (routine) without abnormal findings - Z01.419???2.?Encounter for screening mammogram for malignant neoplasm of breast - Z12.31???3.?Hormone replacement therapy - Z79.890???4.?Hematuria, unspecified - R31.9??? Plan: * Treatment: ? Value Reference Range ?PH 5.0 * ?PROTEIN Neg * ?GLUCOSE Neg * ?BLOOD Moderate * DMAURA Grace 07/30/2024 02:22:50 PM EST > Hx of Hematuria Notes: NO MORE PAP TESTS.??2.?Encounter for screening mammogram for malignant neoplasm of breast?Imaging: MM Digital Mammo Screening Notes: REGULAR MAMMOGRAMS AND SBE'S WERE RECOMMENDED.??3.?Hormone replacement therapy? Start Estradiol Patch Twice Weekly, 0.0375 MG/24HR, 1 patch to skin, Transdermal, Two times a Week,90 days, 24 Patch, Refills 5.?? Notes: DISCUSSED BENEFITS AND RISKS OF HRT. PAT WANTS TO CONTINUE AND HAS NO CONTRAINDICATIONS. RX FOR ESTRADIOL CREAM WAS SENT.??4.?Hematuria, unspecified? Notes: DISCUSSED MICROSCOPIC HEMATURIA. PREVIOUS OFFICIAL UA SHOWED NO RBC'S. PAT REMAINS ASYMPTOMATIC.?? * Imaging:? * ?Imaging: MAMMOGRAM, SCR EENING * Procedure Codes:? * Preventive Medicine:? ??YOUR PREVENTIVE WELLNESS PLAN:?Osteoporosis prevention?Calcium, D, strength training.?Breast Cancer Screening (Mammogram):?annually.?Cervical Cancer Screening (Pap Smear):?q 3 years with HPV screen.?Colorectal Cancer Screening:?q 10 years.? * Follow Up:?1 Year * Images: Billing Information: * Visit Code:? [id number] Preventive Care Est Pt. Age 65 and over. * Procedure Codes:? * Sign off status: Completed true * Appointment Provider:?Daniella Eid M.D. Date:?07/30/2024 Generated for Elier glover/Mitchell/eTwilmersmitting on:?10/22/2024 12:19 PM EDT History and Physical Notes * HPI (History of Present Illness) Category Sub-Category Detail Notes Category Not es New/Follow-up Patient Consult S/P TAHBSO IN 2007 FOR BENIGN OVARIAN CYSTS. SHE IS ON ESTRADIOL PATCH 0.0375 MG TWICE WEEKLY AND IS DOING WELL. S/P THYROIDECTOMY IN 2008 FOR THYROID CA. NO RECURRENCE. SHE HAS HAD MICROSCOPIC HEMATURIA FOR YEARS, WORK UP WAS NEGATIVE. HER MOTHER 3 MONTHS AGO. SHE WAS 89 YEARS OLD. THE PAT IS GRIEVING BADLY. HER LAST MAMMOGRAM DONE IN MAY 2023 SHOWED BREASTS ARE NOT DENSE AND WAS NORMAL. HER LAST PAP TEST IN 2013 WAS NEGATIVE. SHE HAS NO HX OF ABNORMAL PAP TESTS. HER L AST BMD IN 2022 WAS NORMAL. SHE HAD A COLONOSCOPY DONE IN 2018, Q 10 YEARS. Annual General Health Maintenance: Current breast complaints:: no breast pain, mass, discharge, or skin changes Urinary problems:: patient lolita keller no urinary health problems or bowel health problems Calcium intake:: takes adequ ate calcium via diet and supplementation Significant CONDUIT HELPER problems:: n o significant concrete sculptor symptoms or problems Examination Category Sub-Category Detail Notes Category Not es General Exam CONSTITUTIONAL: General Appearan ce:: alert, in no acute distress, normal, well nourished NECK/THYROID: Thyroid:: normal size and shape Inspection/Palpation:: normal RESPIRATORY: Auscultation: clear to auscultation bilaterally, Respiratory Effort: normal CARDIOVASCULAR: Auscultation: regula r rate and rhythm GASTROINTESTINAL: Hernias:: no hernias present, no inguinal adenopathy Liver and Spleen:: normal Abdomen:: no masses, nontender, nondiste nded MUSCULOSKELETAL: Inspection/Palpation:: no clubb ing, cyanosis, or edema SKIN: Skin:: normal NEURO/PSYCH: Mood/Affect:: normal Orientation:: time , place, person BREAST, Right: Inspection/Palpation :: no discharge, no masses present, no nipple retraction, no skin changes, no skin dimpling, no tenderness, no lymphadenopathy, no axillary mass, no axillary tenderness BREAST, Left: Inspection/Palpation :: no discharge, no masses present, no nipple retraction, no skin changes, no skin dimpling, no tenderness, no lymphadenopathy, no axillary mass, no axillary tenderness Genitourinary EXTERNAL GENITALIA: External Genitalia:: nor mal, no lesions VAGINA: Vagina:: normal appearance, no a bnormal discharge, no lesions BLADDER: Bladder:: no mass, nontender URETHRA: Urethra:: no erythema or lesions present CERVIX: Cervix:: surgically absent UTERUS: Uterus:: surgically absent ADNEXA: Adnexa:: surgically absent ANUS AND PERINEUM: Anus/Perineum:: visually norm al
--- OUTSIDE RECORDS SUMMARY | 2024-10-22 12:20 | XMS_ITS ---
Author Organization [facility] Address [address] [place] [address] Care Team Providers Care Commuter Pilot Name Role Phone BREANNA PETTIT M.D. Primary Care Provider Daniella Fabian Unavailable [phone] Allergies Allergen (clinical drug ingredient) Drug/Non Drug Allergy documented on EMR Reaction Allergy Type Onset Date Status Penicillin Unknown Drug Allergy Active Results Component Value Reference Range Notes Urinalysis Reviewed date:04/25/2023 11:45:06 AM Interpretation: Performing Lab: Notes/Report: PH 5.0 PROTEIN TRACE GLUCOSE NEG BLOOD SMALL REASON FOR VISIT Annual CIVIL MANAGER Physical, Annual CIVIL MANAGER Physical 60-85+ Medications Medication SIG (Take, Route, Frequency, Duration) Notes Start Date End Date Status Carvedilol 6.25 MG take 1 tablet by mouth twice a day Oral for 90 Active Calcium 500MG ORAL for -3 08/09/2011 Act jade Simvastatin 10 MG 1 tablet in the evening Orally Once a day Active Levoxyl 88 MCG 1 Orally daily 08/09/2011 Active Vitamin D3 50 MCG (1999 UT) 1 capsule Orally Once a day for 30 day(s) Active Estradiol 0.0375 MG/24HR 1 patch to skin Transdermal EVERY WEEK for 90 days Patient is short 4 patches. She will pay out of pocket for these. Good Rx ID: [id number], BIN: [id number], PCN: [id number], GRP: [id number]. We will try switching her to Minivelle after these 04/19/2022 Active Estradiol 0.0375 MG/24HR 1 patch to skin Transdermal TWICE WEEKLY for 90 days 04/25/2023 Active Social History Tobacco Use: Social History Observation Description Date Details (start date - stop date) Never Smoker NA - NA Tobacco Use/Smoking Question Answer Notes Are you a nonsmoker Alcohol Screen (Audit-C) Question Answer Notes Did you have a drink containing alcohol in the p ast year? No Points 0 Interpretation Negative Problems Problem Type SNOMED Code ICD Code Onset Dates Problem Status W/U Status Risk Notes Problem History of malignant neoplasm of thyroid (625230626) Personal history of malignant neoplasm of thyroid (Z85.850) Active confirmed Vital Signs Temperature 97.3 degrees Fahrenheit 04/25/20 23 Blood pressure systolic 130 mm Hg 04/25/20 23 Blood pressure diastolic 80 mm Hg 023 Height 62.5 in 04/25/2023 Weight 200.4 lbs 04/25/2023 BMI 36.07 kg/m2 04/25/2023 Encounters Encounter Location Date Provider Diagnosis [address] [address] 04/25/2023 Daniella Eid Encounter for gynecological examination (general) (routine) without abnormal findings Z01.419 ; Encounter for screening mammogram for malignant neoplasm of breast Z12.31 ; Encounter for screening for osteoporosis Z13.820 ; Hormone replacement therapy Z79.890 and Personal history of malignant neoplasm of thyroid Z85.850 Assessments Encounter Date Diagnosis (ICD Code) Assessment Notes Treatment Notes Treatment Clinical Notes Section Notes 04/25/2023 Encounter for gynecological examination (general) (routine) without abnormal findings (ICD-10 - Z01.419) NO MORE PAP TESTS. 04/25/2023 Encounter for screening mammogram for malignant neoplasm of breast (ICD-10 - Z12.31) REGULAR MAMMOGRAMS AND SBE'S WERE RECOMMENDED. 04/25/2023 Encounter for screening for osteoporosis (ICD-10 - Z13.820) BONE DENSITY WAS ORDERED. 04/25/2023 Hormone replacement therapy (ICD-10 - Z79.890) DISCUSSED BENEFITS AND RISKS OF ERT. SHE HAS NO CONTRAINDICATIONS AND ACCEPTS RISKS. 04/25/2023 Personal history of malignant neoplasm of thyroid (ICD-10 - Z85.850) CONTNUE FOLLOW UP WITH STUDENT UNION CONSULTANT. Plan Of Treatment Medication Medication Name Sig Start Date Stop Date Notes Estradiol 0.0375 MG/24HR 1 patch to skin Transdermal TWICE WEEKLY for 90 days 04/25/2023 Treatment Notes Assessment Notes Encounter for gynecological examination (general) (routine) without abnormal findings NO MORE PAP TESTS. Encounter for screening mamm ogram for malignant neoplasm of breast REGULAR MAMMOGRAMS AND SBE'S WERE RECOMMENDED. Encounter for screening for osteoporosis BONE DENSITY WAS ORDERED. Hormone replacement therapy DISCUSSED BE NEFITS AND RISKS OF ERT. SHE HAS NO CONTRAINDICATIONS AND ACCEPTS RISKS. Personal history of malignan t neoplasm of thyroid CONTNUE FOLLOW UP WITH STUDENT UNION CONSULTANT. Pending Test Test Name Order Date MAMMOGRAM, SCREENING 04/25/2023 BONE DENSITY 04/25/2023 MM Digital Mammo Screening 04/25/2023 Next Appt Details Follow Up: 1 Year, Reason: Provider Name:Daniella bernabe, 08/05/2025 02:00:00 PM, [address], [address], [place], [address], Progress Notes * RODRICK LOCKWOODDOB:[birth year] (62 yo F)Acc No.[id number]:04/25/2023 PROGRESS NOTES Patient:?RODRICK LOCKWOOD Appointment Provider:?Daniella bernabe M.D. :1960???Age:62 Y???Sex:Female D ate:04/25/2023 Address:[address] [place] [address] [id number] Pcp:BREANNA PETTIT M.D. Subjective: * Chief Complaints: * ???Annual CIVIL MANAGER PhysicalAnnual CIVIL MANAGER Physical 60-85+ * HPI: ???New/Follow-up Patient Consult:? S/P TAHBSO IN 2007 FOR BENIGN OVARIAN CYSTS. SHE HAS BEEN ON HRT SINCE THEN. SHE USES ESTRADIOL PATCH 0.0375 MG TWICE WEEKLY AND IS DOING WELL. ?S/P THYROIDECTOMY FOR THYROID CA IN 2008. SHE IS SEEN BY AN STUDENT UNION CONSULTANT REGULARLY. ?SHE WAS NOTED TO HAVE HEMATURIA ON OFFICE UA BUT OFFICIAL UA SHOWED NO RVC'S AND UA WAS NORMAL. ?SHE HAS A 96 YEAR OLD MOTHER IN [place]. SHE WORRIES ABOUT HER AND VISITED HER THIS YEAR. ?HER LAST MAMMOGRAM DONE IN MAY 2021 SHOWED BREASTS ARE NOT DENSE AND WAS NORMAL. ?HER LAST PAP TEST IN 2013 WAS NEGATIVE. SHE HAS NO HX OF ABNORMAL PAP TESTS. ?SHE HAD A COLONOSCOPY DONE IN 2018. ?PFIZER X 2. ???Annual:? Patient presents for annual exam, ages 60-85, postmenopausal. ?General Health Maintenance:?Current breast complaints:?no breast pain, mass, discharge, or skin changes ?Urinary problems:?patient reports no urinary health problems or bowel health problems ?Calcium intake:?takes adequate calcium via diet and supplementation ?Significant CIVIL MANAGER problems:?no significant traveling sales executive symptoms or problems * ROS:?general:?no?chest pain.?no?palpitations.?no?headache.?no?cough.?no?shortness of breath.?no?fever.?no?unexplained weight loss.?no?nausea/vomiting.?no?change in bowel movements.?no blood in stool.?no?genitourinary complaints.?no?skin complaints.? * Medical History:? * Grey Tender History:?/ Para?1/1.?Sexual activity?currently sexually active.?Last Pap Smear:?09/13/13.?Mammogram:?05/21/21 50-75% density, 05/17/20 < 50% density, 04/13/19 < 50% density, 03/27/18 < 50% density, 01/2017 normal, 01/2016, normal, 01/13/15 < 50% density, 12/24/13.?LMP and menses?Hyst.?Hysterectomy:?Yes, CAROLE/BSO.?Colonoscopy?2017, 2007.?CIVIL MANAGER HISTORY MISC.?01/13/15 Bere Score 9%.? * OB History:?Total pregnancies?1.?Total living children?1.?NVD?1.? * Surgical History:?Colonoscop y CAROLE/BSO S/P Thyroidectomy - Thyroid Cancer 2009 * Hospitalization/Major Diagno stic Procedure:?1 Vaginal Delivery See Surgical Hx * Family History:?Mother: ronaldo alvares, well.?Father: .? * Social History:?Tobacco Use:?Tobacco Use/Smoking?Are you a?nonsmoker ???Sexual History:?Sexual History?Had sex in the past 12 months (vaginal, oral, or anal)?: Yes, with: Men only, Use protection?: No, Have you ever had a Sexually transmitted disease?: No.?Details of Sexual History?Are you sexually active??Yes ???Drugs/Alcohol:?Drugs?Have you used drugs other than those for medical reasons in the past 12 months??No ?Alcohol Screen (Audit-C)?Did you have a drink containing alcohol in the past year??No ?Points?0 ?Interpretation?Negative ???Miscellaneous:?Children: yes, 1. ?no Domestic violence. ?Exercise: yes, walking. ?Home smoke detector use: yes. ?Living with: spouse. ?Marital status: . ?Natural support system: yes. ?Occupation: Works full-time. ?no Sexual abuse. ?Sexually active: yes, monogamous relationship. ?no Verbal abuse. * Medications:?TakingVitamin D 3 50 MCG (1999 UT) Capsule 1 capsule Orally Once a dayLevoxyl 88 MCG Tablet 1 Orally dailySimvastatin 10 MG Tablet 1 tablet in the evening Orally Once a dayCalcium 500MG ORAL Carvedilol 6.25 MG Tablet take 1 tablet by mouth twice a day Oral Estradiol 0.0375 MG/24HR Patch Weekly 1 patch to skin Transdermal EVERY WEEK, Notes: Patient is short 4 patches. She will pay out of pocket for these. Good Rx ID: [id number], BIN: [id number], PCN: [id number], GRP: SVECARD. We will try switching her to Minivelle after theseTaking Vitamin D3 50 MCG (1999) Capsule 1 capsule Orally Once a dayTaking Levoxyl 88 MCG Tablet 1 Orally dailyTaking Simvastatin 10 MG Tablet 1 tablet in the evening Orally Once a dayTaking Calcium 500MG ORAL Taking Carvedilol 6.25 MG Tablet take 1 tablet by mouth twice a day Oral Taking Estradiol 0.0375 MG/24HR Patch Weekly 1 patch to skin Transdermal EVERY WEEK, Notes: Patient is short 4 patches. She will pay out of pocket for these. Good Rx ID: [id number], BIN: [id number], PCN: [id number], GRP: SVECARD. We will try switching her to Minivelle after theseDiscontinuedMinivelle 0.05 MG/24HR Patch Biweekly 1 patch to skin Transdermal TWICE WEEKLYMinivelle 0.05 MG/24HR Patch Twice Weekly 1 patch to skin Transdermal EVERY 5 DAYSMinivelle 0.0375 MG/24HR Patch Biweekly 1 patch to skin Transdermal Every friday and alternate with 0.05 mg patch q fridayMinivelle 0.0375 MG/24HR Patch Twice Weekly 1 patch to skin Transdermal Two times a WeekEstradiol 0.0375 MG/24HR Patch Twice Weekly APPLY 1 PATCH TOPICALLY TO THE SKIN 2 TIMES A WEEK Minivelle 0.0375 MG/24HR Patch Twice Weekly 1 patch to skin Transdermal Once a week, Notes: Patient will be switching to Minivelle. It will be a No Substitution Rx. Only comes as twice a week in our system but patient will only being using once weekly.Medication List reviewed and reconciled with the patientDiscontinued Minivelle 0.05 MG/24HR Patch Biweekly 1 patch to skin Transdermal TWICE WEEKLYDiscontinued Minivelle 0.05 MG/24HR Patch Twice Weekly 1 patch to skin Transdermal EVERY 5 DAYSDiscontinued Minivelle 0.0375 MG/24HR Patch Biweekly 1 patch to skin Transdermal Every friday and alternate with 0.05 mg patch q fridayDiscontinued Minivelle 0.0375 MG/24HR Patch Twice Weekly 1 patch to skin Transdermal Two times a WeekDiscontinued Estradiol 0.0375 MG/24HR Patch Twice Weekly APPLY 1 PATCH TOPICALLY TO THE SKIN 2 TIMES A WEEK Discontinued Minivelle 0.0375 MG/24HR Patch Twice Weekly 1 patch to skin Transdermal Once a week, Notes: Patient will be switching to Minivelle. It will be a No Substitution Rx. Only comes as twice a week in our system but patient will only being using once weekly.Medication List reviewed and reconciled with the patient * Allergies:?Penicillin: Unkno wn - Allergyno[Allergies Verified] Objective: * Vitals:?Ht: 62.5 in, Wt:200. 4 lbs, BMI:36.07 Index, BP:130/80 mm Hg, Temp:97.3 F. * Examination: ???General Exam: ?CONSTITUTIONAL:?General Appearance:?alert, in [...] examination (general) (routine) without abnormal findings - Z01.419?2.?Encounter for screening mammogram for malignant neoplasm of breast - Z12.31?3.?Encounter for screening for osteoporosis - Z13.820?4.?Hormone replacement therapy - Z79.890?5.?Personal history of malignant neoplasm of thyroid - Z85.850? Plan: * Treatment: ? Value Reference Range ?PH 5.0 * ?PROTEIN TRACE * ?GLUCOSE NEG * ?BLOOD SMALL * Antonio Villanueva 3 9:52:58 AM >Daniella Eid 04/25/2023 11:44:28 AM > WORK UP WAS NEGATIVE Notes: NO MORE PAP TESTS.??2.?Encounter for screening mammogram for malignant neoplasm of breast?Imaging: MM Digital Mammo Screening Notes: REGULAR MAMMOGRAMS AND SBE'S WERE RECOMMENDED.??3.?Encounter for screening for osteoporosis?Imaging: BONE DENSITY Notes: BONE DENSITY WAS ORDERED.??4.?Hormone replacement therapy? Start Estradiol Patch Twice Weekly, 0.0375 MG/24HR, 1 patch to skin, Transdermal, TWICE WEEKLY, 90 days, 24 Patch, Refills 4.?? Notes: DISCUSSED BENEFITS AND RISKS OF ERT. SHE HAS NO CONTRAINDICATIONS AND ACCEPTS RISKS. ??5.?Personal history of malignant neoplasm of thyroid? Notes: CONTNUE FOLLOW UP WITH STUDENT UNION CONSULTANT.?? * Imaging:? * ?Imaging: MAMMOGRAM, SCR EENING * Procedure Codes:? * Preventive Medicine:? ??YOUR PREVENTIVE WELLNESS PLAN:?Osteoporosis prevention?Calcium, D, strength training.?Breast Cancer Screening (Mammogram):?annually.?Cervical Cancer Screening (Pap Smear):?q 3 years with HPV screen.?Colorectal Cancer Screening:?q 10 years.? * Follow Up:?1 Year * Images: Billing Information: * Visit Code:? 20112 Preventive Care Est Pt. Age 65 and over. * Procedure Codes:? * Sign off status: Completed true * Appointment Provider:?Daniella Eid M.D. Date:?04/25/2023 Generated for Elier glover/Mitchell/Abdullahi on:?10/22/2024 12:20 PM EDT History and Physical Notes * HPI (History of Present Illness) Category Sub-Category Detail Notes Category Not es New/Follow-up Patient Consult S/P DAVID IN 2007 FOR BENIGN OVARIAN CYSTS. SHE HAS BEEN ON HRT SINCE THEN. SHE USES ESTRADIOL PATCH 0.0375 MG TWICE WEEKLY AND IS DOING WELL. S/P THYROIDECTOMY FOR THYROID CA IN 2008. SHE IS SEEN BY AN STUDENT UNION CONSULTANT REGULARLY. SHE WAS NOTED TO HAVE HEMATURIA ON OFFICE UA BUT OFFICIAL UA SHOWED NO RVC'S AND UA WAS NORMAL. SHE HAS A 96 YEAR OLD MOTHER IN [place]. SHE WORRIES ABOUT HER AND VISITED HER THIS YEAR. HER LAST MAMMOGRAM DONE IN MAY 2021 SHOWED BREASTS ARE NOT DENSE AND WAS NORMAL. HER LAST PAP TEST IN 2013 WAS NEGATIVE. SHE HAS NO HX OF ABNORMAL PAP TESTS. SHE HAD A COLONOSCOPY DONE IN 2018. Beam. X 2. Annual General Health Maintenance: Current breast complaints:: no breast pain, mass, discharge, or skin changes Urinary problems:: patient r arianna no urinary health problems or bowel health problems Calcium intake:: takes adequ ate calcium via diet and supplementation Significant CIVIL MANAGER problems:: n o significant traveling sales executive symptoms or problems Examination Category Sub-Category Detail [...]
--- OUTSIDE RECORDS SUMMARY | 2024-10-22 12:20 | XMS_ITS | Clinical Summary ---
Author Organization [facility] Address [address] [place] [address] Phone Care Team Providers Care Blood Typer Name Role Phone Kaci Eubanks MD Primary Care Provider [phone] Allergies Active Allergy Reactions Criticality Noted Date [...] Take with meals. 180 tablet 3 4 Active hydroCHLOROthia zide 12.5 MG tabletIndicatio ns:Hypertension Take 1 tablet (12.5 mg total) by mouth 1 (one) time each day 30 tablet 11 5 08/17/19 26 Active Active Problems Problem Noted Date Diagnosed Date Vaginitis and vulvovaginitis in diseases classified elsewhere 09/30/2022 Chest pain 09/30/2022 Gynecological examination normal 09/30/2022 Hyperlipidemia 09/30/2022 Hypothyroidism 09/30/2022 Menopausal symptom 09/30/2022 Hypertension 10/11/2020 Overview (08/16/2024): Blood pressure remains sub optimally controlled Taking single therapy Carvedilol 12.5 mg BID Stopped HCTZ 25 mg after 2 days of taking due to nocturia No Edema Normal Renal function Would like to try lower HCTZ 12.5 mg QD dose - ordered Check BMP in 1 week Recommend continue monitoring BP at home, record and bring list of readings in to next visit Follow low NA diet Avoid NSAIDs/OTC Decongestant [...] urine alb/creat ratio prior to next visit Encounters Date Type Department Care Team Description 08/16/2024 1:30 PM EST Office Visit [facility] [address] [address] Elo Sepulveda ARNP Hypertension (Primary Dx) from Last 3 Months Family History Medical History Relation Comments Heart [...] Sign Reading Time Taken Comments Blood Pressure 124/84 08/16/2024 1:57 PM EST Pulse 64 08/16/2024 1:40 PM EST Temperature - - Respiratory Rate - - Oxygen Saturation 97% 10/02/2022 3:01 PM EDT Inhaled Oxygen Concentration - - Weight 92.5 kg (204 lb) 08/16/2024 1:40 PM EST Height 160 cm (5' 3 ) 09/22/2020 3:46 PM EDT Body Mass Index 36.14 09/22/2020 3:46 PM EDT Plan of Treatment Upcoming Encounters Date Type Department Care Team (Late st Contact Info) Description 02/16/2025 3:00 PM EDT Office Visit [facility] [address] [address] Elo Sepulveda ARNP [address] [address] Health Maintenance Due Date Last Done Comments Breast Cancer Screening 1960 Pneumococcal Vaccine: 50+ Ye ars (1 of 2 - PCV) 1980 Colorectal Cancer Screening: Annual FOBT 2010 Colorectal Cancer Screening: Colonoscopy 2010 Colorectal Cancer Screening: Sigmoidoscopy 2010 Influenza Vaccine (Season Ended) 2025 Hepatitis B Vaccine Aged Out No longe r eligible based on patient's age to complete this topic Insurance Cigna Cigna Care Teams Blood Typer Relationship Specialty Start Date End Date Kaci Eubanks MD [facility] [address] [place], [place] PCP - General 06/26/20
== END 2024-10-22 11:50 | disposition home or self-care (01) ==
LOC: HO.MAMMO 11:49
PROVIDERS: PCP Internal Medicine; Visit Provider Internal Medicine
DX: Z12.31 Encounter for screening mammogram for malignant neoplasm of breast (principal)
CPT/HCPCS: 77063; 77067

== ENCOUNTER → 2024-10-22 12:00 | Outpatient (BNV) | payer OTHER, SELFPAY | PROVIDERS: PCP Internal Medicine; Visit Provider Internal Medicine | DX: Z12.31 Encounter for screening mammogram for malignant neoplasm of breast (principal) | CPT/HCPCS: 77063; 77067 ==

== ENCOUNTER 2024-11-19 10:56 | Outpatient (AMB) | payer OTHER, SELFPAY ==
[2024-11-19 10:57] VITALS: BP 130/78; PULSE 93; RESP 18; TEMP 36.8; O2SAT 96; BMI 38.6
--- NOTE | 2024-11-19 10:57 | A.OFFPC_ITS ---
Vital Signs 11/19/24 10:57 Height 5 ft 2 in Weight 211 lb BMI 38.6 BP 130/78 Blood Pressure Location Lt brachial Position Sitting Respiration 18 Pulse 93 Pulse Source Pulse Oximeter Temp 98.2 F Temp Source Oral Pulse Oximetry (%) 96 Oxygen Delivery Method Room Air Intake Visit Reasons: transfer from Dr. Eubanks/mushtaq by HENOK Intake Note: Pt is here today for Establish Care visit. Allergies Penicillins [PCN] Allergy (Unknown, Verified 11/19/24 10:57) UNKNOWN Medication List - Last Reconciled 11/19/24 by Arelis Sapp MD [AutoPAP mode and pressure setting of 6-16 cm water humidified AIR As directed] carvedilol 12.5 mg PO BID 90 days cholecalciferol (vitamin D3) 50 mcg PO DAILY estradiol patches transdermal levothyroxine (Levoxyl) 100 mcg PO DAILY levothyroxine 100 mcg orally once a day x 6 days one 1.5 tab; simvastatin 10 mg PO DAILY 90 days Tobacco use date assessed: 11/19/24 Dental Screening Dental Screen Date: 11/19/24 Did you have a dental visit in the last 12 months?: Yes Did you have a dental problem in the last 6 months where you did not have access to dental care?: No Was dental information given to patient?: Patient has dentist HPI transfer from Dr. 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 by medieval english literature professor, and hyperlipidemia PFSH Medical History (Updated 11/19/24 @ 16:09 by Arelis Sapp MD) Moderate obstructive sleep apnea Witnessed apneic spells Labile hypertension Anxiety Impaired glucose tolerance Hypercholesterolemia History of thyroid cancer Hypothyroid Obesity (BMI 30-39.9) Surgical History History of hysterectomy History of thyroidectomy Family History Father Diabetes Hypertension CVD (cardiovascular disease) Mother CVD (cardiovascular disease) Hypertension Sister In good health Lung cancer Sister In good health Sister In good health Son In good health Paternal Uncle Myocardial infarction Maternal Uncle Myocardial infarction Social History (Updated 11/19/24 @ 11:38 by Arelis Sapp MD) Household Members Other:: , 1 son 35, lives in [place] Housing: House Alcohol intake: never Patient Tobacco Use Status: Never used Tobacco Tobacco use type: Cigarette Years Smoked: high school e-Cigarette/Vaping Use: Never Used Second Hand Smoke Exposure: No service: No Current occupational status: employed Current occupational exposures/hazards: No Cognitive needs: No Hearing needs: No Vision needs: Yes Questionnaire Thrive Questionnaire Date Thrive assessed: 07/15/24 I am a: Patient What is your living situation today?: I choose not to answer this question Within the past 12 months, did the food you bought not last and you didn't have the money to get more?: I choose not to answer this question Within the past 12 months, did you worry whether your food would run out before you got money to buy more?: I choose not to answer this question Do you have trouble paying for medicines?: No Do you have trouble getting transportation to medical appointments?: No Do you have trouble paying your heating and electricity bill?: No Do you have trouble taking care of your child, family member or friend?: No Do you have trouble with day-to-day activities such as bathing, preparing meals, shopping, managing finances, etc.?: No Are you currently unemployed and looking for a job?: No Are you interested in more education?: No Please select the resources that you would like help with: None Currently or been in a relationship where the following occur: I choose not to answer THRIVE Score: 0 YOLANDA-7 AMB Questionnaire YOLANDA-7 Date YOLANDA - 7 assessed: 07/15/24 Source: Developed by Drs. Vin Vallejo, Dalia Lui, Chacorta Doran and colleagues, with an educational severiano from [email or web address]. Review of Systems Const All systems reviewed & are unremarkable except as noted in HPI and below Eyes Reports no additional complaints ENT Reports no additional complaints Card Reports no additional complaints Resp Reports no additional complaints GI Reports no additional complaints Reports no additional complaints Physical exam (Primary Care) Vital Signs: Last Vital Signs Temp 98.2 F 11/19/24 10:57 Pulse 93 11/19/24 10:57 Resp 18 11/19/24 10:57 BP 130/78 11/19/24 10:57 Pulse Ox 96 11/19/24 10:57 Oxygen Delivery Method Room Air 11/19/24 10:57 BMI result Body Mass Index 38.6 Tobacco/Smoking Status: Tobacco use Status Tobacco use date assessed 11/19/24 11/19/24 10:58 Patient Tobacco Use Status Never used Tobacco 11/19/24 11:38 Tobacco use type Cigarette 11/19/24 11:38 e-Cigarette/Vaping Use Never Used 11/19/24 11:38 Thrive Assessment: Date of Thrive Assessment Date Thrive assessed 07/15/24 11/19/24 10:58 Currently or been in a relationship where the following occur: I choose not to answer Const General: no acute distress HENMT Head: Yes normal to inspection Face and sinus: Yes normal facial exam Eyes General: appearance normal, both eyes and all related structures Resp Effort & Inspection: normal respiratory effort Auscultation: clear to auscultation bilaterally Cardio Rhythm: regular rhythm Heart sounds: S1 normal heart sound present and S2 normal heart sound present GI Inspection: Yes normal to inspection Palpation (GI): Soft to palpation Percussion: Yes normal to percussion Auscultation: normal bowel sounds Coding Level of Care Code Est Pt Level 4 (64119) Diagnoses Hypercholesterolemia E78.00 Hypertension I10 Acquired hypothyroidism E03.9 Hypothyroidism type: acquired Assessment & Plan Assessment & Plan (1) Hypercholesterolemia: Comment: goal of LDL is less than 130 Code(s): E78.00 - Pure hypercholesterolemia, unspecified Category: Medical Plan: Continue low-cholesterol diet (2) Hypertension: Code(s): I10 - Essential (primary) hypertension Category: Medical Plan: Continue current medication (3) Hypothyroid: Comment: After total thyroidectomy for thyroid cancer in 2008, established with endocrino logy Dr. Yee Code(s): E03.9 - Hypothyroidism, unspecified Category: Medical Qualifiers: Hypothyroidism type: acquired Qualified Code(s): E03.9 - Hypothyroidism, unspecified Plan: Continue levothyroxine follow-up with endocrinology Orders: Orders Comprehensive [place]. Panel Fast 3 Months Arelis Sapp MD E78.00 - Pure hypercholesterolemia, unspecified, I10 - Essential (primary) hypertension, R73.02 - Impaired glucose tolerance (oral) Complete Blood Count Auto Diff 3 Months Arelis Sapp MD E78.00 - Pure hypercholesterolemia, unspecified, I10 - Essential (primary) hypertension, R73.02 - Impaired glucose tolerance (oral) Lipid Panel 3 Months Arelis Sapp MD E78.00 - Pure hypercholesterolemia, unspecified, I10 - Essential (primary) hypertension, R73.02 - Impaired glucose tolerance (oral) Referrals Cologuard Test Arelis Sapp MD Z12.11 - Encounter for screening for malignant neoplasm of colon, Z12.12 - Encounter for screening for malignant neoplasm of rectum Medications: Changed From levothyroxine 88 mcg orally once a day x 6 days one 1.5 tab; 90 caps 3RF E03.9 - Hypothyroidism, unspecified To levothyroxine 100 mcg orally once a day x 6 days one 1.5 tab; E03.9 - Hypothyroidism, unspecified Kaci Eubanks, Refilled simvastatin 10 mg PO DAILY 90 tabs 3RF 90 days Arelis Sapp MD E78.00 - Pure hypercholesterolemia, unspecified
--- OUTSIDE RECORDS SUMMARY | 2024-11-19 11:48 | XMS_ITS ---
Author Organization [facility] Address [address] [address] Care Team Providers Care Head Worker Name Role Phone BREANNA PETTIT M.D. Primary Care Provider Daniella Fabian Unavailable [phone] Allergies Allergen (clinical drug ingredient) Drug/Non Drug Allergy documented on EMR Reaction Allergy Type Onset Date Status Penicillin Unknown Drug Allergy Active REASON FOR VISIT Annual OFFICE SERVICES ASSISTANT Physical Encounters Encounter Location Date Provider Diagnosis [address] [address] 04/30/2024 Daniella Eid Plan Of Treatment Next Appt Details Provider Name:Daniella bernabe, 08/05/2025 02:00:00 PM, [address] [place] [address], [place], [address], Progress Notes * RODRICK LOCKWOODDOB:[birth year] (64 yo F)Acc No.[id number]:04/30/2024 PROGRESS NOTES Patient:?RODRICK LOCKWOOD Appointment Provider:?Daniella bernabe M.D. :1960???Age:63 Y???Sex:Female D ate:04/30/2024 Address:[address] [place] [address] [facility] Pcp:BREANNA PETTIT M.D. Subjective: * Chief Complaints: * ???1. Annual OFFICE SERVICES ASSISTANT Physical. * Medical History:?Hypothyroid ism, unspecified, Menopausal and female climacteric states, Hormone replacement therapy (postmenopausal), Inconclusive mammogram, Personal history of malignant neoplasm of thyroid. * Senior Data Mining Analyst History:?/ Para?1/1.?Sexual activity?currently sexually active.?Last Pap Smear:?09/13/13.?Mammogram:?06/10/23 < 50% density, 05/21/21 50-75% density, 05/17/20 < 50% density, 04/13/19 < 50% density, 03/27/18 < 50% density, 01/2017 normal, 01/2016, normal, 01/13/15 < 50% density, 12/24/13.?LMP and menses?Hyst.?Hysterectomy:?Yes, CAROLE/BSO.?Colonoscopy?2018, 2007.?Bone Density:?06/13/23.?OFFICE SERVICES ASSISTANT HISTORY MISC.?01/13/15 Bere Score 9%.? * OB History:?Total pregnancies?1.?Total living children?1.?NVD?1.? * Allergies:?Penicillin: Unkno wn - Allergy. Objective: * Vitals:? Assessment: Plan: * Treatment: * Images: Billing Information: * Visit Code:? * Procedure Codes:? * Electronic signature of Ezekiel Eid MD on 11/19/2024 at 11:48 AM EDT Sign off status: Pending * Appointment Provider:?Daniella Eid M.D. Date:?04/30/2024 Generated for Elier glover/Mitchell/Justinitting on:?11/19/2024 11:48 AM EDT
== END 2024-11-19 12:10 | disposition home or self-care (01) ==
LOC: HO.HMCC 10:56
PROVIDERS: PCP Internal Medicine; Visit Provider Internal Medicine
DX: E78.00 Pure hypercholesterolemia, unspecified (principal); I10 Essential (primary) hypertension; E03.9 Hypothyroidism, unspecified

== ENCOUNTER → 2024-11-19 10:56 | Outpatient (BNVA) | payer OTHER, SELFPAY | PROVIDERS: PCP Internal Medicine; Visit Provider Internal Medicine ==

== ENCOUNTER 2024-12-13 08:01 | Outpatient (REF) | payer OTHER, SELFPAY ==
--- NOTE | ~2024-12-13 | XR_ITS ---
EXAMINATION: XR CHEST 2 VIEWS HISTORY: R05.9 - Cough, unspecified COMPARISON: Comparison is made with the prior examination dated 04/21/2014. FINDINGS: PA and lateral views of the chest are submitted. The lungs are expanded and clear. There is no pleural effusion, pneumothorax, or pulmonary vascular congestion. The heart is normal in size. There is degenerative disc disease of the spine. XR/XR chest 2V IMPRESSION: No acute cardiopulmonary abnormality. Electronically signed by: Vin Meza MD 12/13/2024 09:16 AM EDT
== END 2024-12-13 08:02 | disposition home or self-care (01) ==
LOC: HO.HMGCX 08:01
PROVIDERS: PCP Internal Medicine; Visit Provider Nurse Practitioner Family
DX: R05.9 Cough, unspecified (principal)
CPT/HCPCS: 71046

== ENCOUNTER 2024-12-13 08:01 | Outpatient (AMB) | payer OTHER, SELFPAY ==
--- OUTSIDE RECORDS SUMMARY | 2024-04-30 05:10 | XMS_ITS ---
Author Organization [facility] [address] Care Team Providers Care Auto Glass Worker Name Role Phone BREANNA PETTIT M.D. Primary Care Provider Daniella Fabian [phone] Allergies Allergen (clinical drug ingredient) Drug/Non Drug Allergy documented on EMR Reaction Allergy Type Onset Date Status Penicillin Unknown Drug Allergy Active REASON FOR VISIT Annual AMMONIA WORKER Physical Encounters Encounter Location Date Provider Diagnosis [place] [address] [place] [address] 04/30/2024 Daniella Eid Plan Of Treatment Next Appt Details Provider Name:Daniella bernabe, 12/22/2024 01:10:00 PM, [address] [place], [place] [address] [address], [address], Provider Name:Daniella bernabe, 08/05/2025 02:00:00 PM, [address] [place] [address], [address], Progress Notes * RODRICK LOCKWOODDOB:[birth year] (64 yo F)Acc No.[id number]:04/30/2024 PROGRESS NOTES Patient: Raman MUNOZ RODRICK Appointment Provider: Breanna Eid M.D. :1960 A ge:63 Y S ex:Female Date:04/30/2024 Address:[address] [place] [address], , [facility] Pcp:BREANNA PETTIT M.D. Subjective: * Chief Complaints: * 1 . Annual AMMONIA WORKER Physical. * Medical History: H ypothyroidism, unspecified, Menopausal and female climacteric states, Hormone replacement therapy (postmenopausal), Inconclusive mammogram, Personal history of malignant neoplasm of thyroid. * Cabbage Salter History: G ravida/ Para 1 /. S exual activity c urrently sexually active. L ast Pap Smear: . M ammogram: 1 08/11/22 < 50% density, 05/21/21 50-75% density, 05/17/20 < 50% density, 04/13/19 < 50% density, 03/27/18 < 50% density, 01/2017 normal, 01/2016, normal, 01/13/15 < 50% density, 12/24/13. L MP and menses H yst. H ysterectomy: Y es, CAROLE/BSO. C olonoscopy 2 [id number]. B one Density: 1 . G YN HISTORY MISC. Bere Score 9%. * OB History: T otal pregnancies 1 . T otal living children 1 . N VD 1 . * Allergies: P enicillin: Unknown - Allergy. Objective: * Vitals: Assessment: Plan: * Treatment: * Images: Billing Information: * Visit Code: * Procedure Codes: * Electronic signature of Ezekiel Eid MD on 12/13/2024 at 08:03 AM EDT Sign off status: Pending * Appointment Provider: Breanna Eid M.D. Date: 06/30/2023 Generated for Elier glover/Mitchell/Justinitting on: 0 12/13/2024 08:03 AM EDT
[2024-12-13 08:20] VITALS: BP 152/90; PULSE 103; TEMP 36.8; O2SAT 97; BMI 38.2
--- NOTE | 2024-12-13 08:20 | AM.OFFWIN_ITS ---
Intake Vital Signs 12/13/24 08:20 Height 5 ft 2 in Weight 209 lb BMI 38.2 BP 152/90 H Blood Pressure Location Rt brachial Position Sitting Pulse 103 H Pulse Source Pulse Oximeter Temp 98.2 F Temp Source Oral Pulse Oximetry (%) 97 Oxygen Delivery Method Room Air Intake Visit Reasons: EP cough, chest pain when coughing Intake Note: pt presents with chest congestion, unproductive cough, throat pain, chest pain, lethargic- s/s x2 days Patient Tobacco Use Status: Never used Tobacco Allergies Penicillins (PCN) Allergy (Unknown, Verified 12/13/24 08:23) UNKNOWN Do you need a note to return to daycare/school/sports/work: Yes HPI HPI Comments History of Present Illness Details 64 y/o Female patient who presents to [facility] with c/o Dry cough and chest tightness for 2 days. [facility] Medical History (Updated 12/13/24 @ 08:58 by Alejandrina Heard NP) Acute respiratory disease Cough Moderate obstructive sleep apnea Witnessed apneic spells Labile hypertension Anxiety Impaired glucose tolerance Hypercholesterolemia History of thyroid cancer Hypothyroid Obesity (BMI 30-39.9) Surgical History History of hysterectomy History of thyroidectomy Family History Father Diabetes Hypertension CVD (cardiovascular disease) Mother CVD (cardiovascular disease) Hypertension Sister In good health Lung cancer Sister In good health Sister In good health Son In good health Paternal Uncle Myocardial infarction Maternal Uncle Myocardial infarction Social History (Updated 11/19/24 @ 11:38 by Arelis Sapp MD) Household Members Other:: , 1 son 35, lives in [place] Housing: House Alcohol intake: never Patient Tobacco Use Status: Never used Tobacco Tobacco use type: Cigarette Years Smoked: high school e-Cigarette/Vaping Use: Never Used Second Hand Smoke Exposure: No service: No Current occupational status: employed Current occupational exposures/hazards: No Cognitive needs: No Hearing needs: No Vision needs: Yes Review of Systems Const All systems reviewed & are unremarkable except as noted in HPI and below Physical Exam Vital Signs: Last Vital Signs Temp 98.2 F 12/13/24 08:20 Pulse 103 H 12/13/24 08:20 BP 152/90 H 12/13/24 08:20 Pulse Ox 97 12/13/24 08:20 Oxygen Delivery Method Room Air 12/13/24 08:20 BMI result Body Mass Index 38.2 Const General: no acute distress Nutritional Appearance: obese Orientation/consciousness: patient oriented x3 HEENT Head: Yes normocephalic Ears: external ears normal and TM abnormal bulging and with fluid behind the TM bilateral General nose exam: Normal external nose present Face and sinus: Yes sinuses nontender Mouth: moist mucous membranes Throat: Yes uvula midline Resp Effort & Inspection: normal respiratory effort and able to speak in complete sentences Auscultation: clear to auscultation bilaterally, no crackles, no rales, no rhonchi and no wheezes Cardio Heart sounds: S1 normal heart sound present and S2 normal heart sound present Neuro General: patient oriented x3 Assessment & Plan Assessment & Plan (1) Cough: Code(s): R05.9 - Cough, unspecified Qualifiers: Cough type: acute Qualified Code(s): R05.1 - Acute cough Plan: Ordered Chest Xray. Ordered cough medicines Home remedies. Rest and hydrate well with warm fluids. (2) Acute respiratory disease: Code(s): J06.9 - Acute upper respiratory infection, unspecified Plan: Ordered Chest Xray. Ordered cough medicines Home remedies. Rest and hydrate well with warm fluids. Orders: Orders XR chest 2V Today R05.9 - Cough, unspecified Medications: New acetaminophen 1,000 mg (2 x 500 mg) PO Q6H PRN 30 caps 0RF pain J06.9 - Acute upper respiratory infection, unspecified, R05.1 - Acute cough benzonatate 200 mg (2 x 100 mg) PO BID 60 caps 0RF R05.1 - Acute cough dextromethorphan polistirex ER (Delsym 12 hour) 10 mL PO Q12H 89 mL 0RF cough R05.1 - Acute cough Coding Level of Care Code Est Pt Level 4 (02034) Diagnoses Acute cough R05.1 Cough type: acute Acute respiratory disease J06.9 Time Spent (min) 20
== END 2024-12-13 09:01 | disposition home or self-care (01) ==
PROVIDERS: PCP Internal Medicine; Visit Provider Nurse Practitioner Family
DX: R05.1 Acute cough (principal); J06.9 Acute upper respiratory infection, unspecified

== ENCOUNTER → 2024-12-13 09:03 | Outpatient (BNV) | payer OTHER, SELFPAY | PROVIDERS: PCP Internal Medicine; Visit Provider Radiology Diagnostic Radiology | DX: R05.9 Cough, unspecified (principal) | CPT/HCPCS: 71046 ==

== ENCOUNTER 2024-12-22 14:12 | Outpatient (AMB) | payer OTHER, SELFPAY ==
[2024-12-22 14:17] VITALS: BP 162/90; PULSE 89; TEMP 36.7; O2SAT 98; BMI 38.4
--- NOTE | 2024-12-22 14:17 | AM.OFFWIN_ITS ---
Intake Vital Signs 12/22/24 14:17 Height 5 ft 2 in Weight 210 lb BMI 38.4 BP 162/90 H Blood Pressure Location Lt brachial Position Sitting Pulse 89 Pulse Source Pulse Oximeter Temp 98.0 F Temp Source Oral Pulse Oximetry (%) 98 Oxygen Delivery Method Room Air Intake Visit Reasons: EP ?HTN ~ experiencing heaviness Intake Note: presents with flushing, body chills, overall feeling lousy - started this morning Patient Tobacco Use Status: Never used Tobacco Allergies Penicillins (PCN) Allergy (Unknown, Verified 12/22/24 14:20) UNKNOWN Do you need a note to return to daycare/school/sports/work: No HPI HPI Comments History of Present Illness Details History of Present Illness - The patient is a 64-year-old female pr esenting with concerns of elevated blood pressure readings and associated symptoms. - She reports waking up with a sensation of high blood pressure, feeling unwell, and avoiding measurement due to anxiety about high readings. - Blood pressure readings have been as h igh as 200 mmHg systolic at home, with a recent reading of 180/106 mmHg at a dermatology teacher visit earlier today. - Symptoms include a sensation of heavin ess in the head, sweaty hands, and feeling cold, without headaches, dizziness, nausea, or chest pain. - Current medication includes carvedilol 12.5 mg twice daily, she has 6.25mg tablets at home from when she started the medication. - Blood pressure fluctuates, with occasi onal readings below 130 mmHg systolic, but spikes to systolics of 180-220 mmHg occur. - She has a BP monitor at home Physical Exam General: Cooperative, healthy appearing, comfortable, no acute distress and well developed Orientation: Patient oriented x3 Limitations: No limitations Head: Normal to inspection Ears: Hearing grossly normal bilaterally Nose: Normal External nose present Face and sinus: Normal facial exam Eyes: Appearance normal, both eyes and all related structures Neck: Normal visual inspection and Yes full ROM Respiratory: Normal respiratory effort and able to speak in complete sentences. Skin: No rashes or lesions noted Neuro: Patient oriented x3 Extremities: Normal to inspection [facility] Medical History (Updated 12/22/24 @ 14:42 by Coreen Griffith PA-C) Acute respiratory disease Cough Moderate obstructive sleep apnea Witnessed apneic spells Labile hypertension Anxiety Impaired glucose tolerance Hypercholesterolemia History of thyroid cancer Hypothyroid Obesity (BMI 30-39.9) Surgical History History of hysterectomy History of thyroidectomy Family History Father Diabetes Hypertension CVD (cardiovascular disease) Mother CVD (cardiovascular disease) Hypertension Sister In good health Lung cancer Sister In good health Sister In good health Son In good health Paternal Uncle Myocardial infarction Maternal Uncle Myocardial infarction Social History (Updated 11/19/24 @ 11:38 by Arelis Sapp MD) Household Members Other:: , 1 son 35, lives in [place] Housing: House Alcohol intake: never Patient Tobacco Use Status: Never used Tobacco Tobacco use type: Cigarette Years Smoked: high school e-Cigarette/Vaping Use: Never Used Second Hand Smoke Exposure: No service: No Current occupational status: employed Current occupational exposures/hazards: No Cognitive needs: No Hearing needs: No Vision needs: Yes Review of Systems Const All systems reviewed & are unremarkable except as noted in HPI and below Physical Exam Vital Signs: Last Vital Signs Temp 98.0 F 12/22/24 14:17 Pulse 89 12/22/24 14:17 BP 162/90 H 12/22/24 14:17 Pulse Ox 98 12/22/24 14:17 Oxygen Delivery Method Room Air 12/22/24 14:17 BMI result Body Mass Index 38.4 Assessment & Plan Assessment & Plan (1) Elevated blood pressure reading in office with diagnosis of hypertension: Code(s): I10 - Essential (primary) hypertension Plan: Plan - Pt will go home and take 6.25mg carvedilol as BP today is elevated at 162/90 and she is symptomatic. - Monitor blood pressure upon waking and 2-3 hours after taking her BP medication, keeping a log for review by the physician. - Use additional 6.5 mg carvedilol as needed for readings >140/80 mmHg. Note this on her log. - Scheduled follow-up appointment with her PCP on 12/28 to review blood pressure log and adjust treatment as necessary. - Uncontrolled hypertension can lead to a stroke. Patient was informed and verbally consented to the use of an ambient scribe for clinic note documentation during this visit. Coding Level of Care Code Est Pt Level 3 (45722) Diagnoses Elevated blood pressure reading in office with diagnosis of hypertension I10
--- OUTSIDE RECORDS SUMMARY | 2024-12-22 14:50 | XMS_ITS | Clinical Summary ---
Author Organization [facility] Address [address] [facility] [address] [place] [address] Phone Care Team Providers Care Straw Boss Name Role Phone Kaci Eubanks MD Primary Care Provider Allergies Active Allergy Reactions Criticality Noted Date [...] Office Visit [facility] [address] [address] Elo Sepulveda ARNP [address] [address] Health Maintenance Due Date Last Done Comments Breast Cancer Screening 1960 Pneumococcal Vaccine: 50+ Ye ars (1 of 2 - PCV) 1980 Colorectal Cancer Screening: Annual FOBT 2010 Colorectal Cancer Screening: Colonoscopy 2010 Colorectal Cancer Screening: Sigmoidoscopy 2010 Influenza Vaccine (#1) 2025 Hepatitis B Vaccine Aged Out No longe r eligible based on patient's age to complete this topic Insurance [employer] Care Teams Straw Boss Relationship Specialty Start Date End Date Kaci Eubanks MD [address] [place] PCP - General 06/26/20
== END 2024-12-22 15:11 | disposition home or self-care (01) ==
PROVIDERS: PCP Internal Medicine; Visit Provider Physician Assistant
DX: I10 Essential (primary) hypertension (principal)

== ENCOUNTER 2024-12-28 11:32 | Outpatient (AMB) | payer OTHER, SELFPAY ==
--- OUTSIDE RECORDS SUMMARY | 2024-04-30 05:10 | XMS_ITS ---
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 :1960 A ge:63 Y S ex:Female Date:04/30/2024 Address:[address] [place], [place] [address] [facility] Pcp:Arelis Sapp MD Subjective: * Chief Complaints: * 1 . Annual COUNT TEAM MEMBER Physical. * Medical History: H ypothyroidism, unspecified, Menopausal and female climacteric states, Hormone replacement therapy (postmenopausal), Inconclusive mammogram, Personal history of malignant neoplasm of thyroid. * Woodwind Instrument Repairer History: G ravida/ Para . S exual [...] Electronic signature of Ezekiel Eid MD on 12/28/2024 at 12:54 PM EDT Sign off status: Pending * Appointment Provider: Breanna Eid M.D. Date: 06/30/2023 Generated for Elier glover/Mitchell/Justinitting on: 0 12/28/2024 12:54 PM EDT
[2024-12-28 12:46] VITALS: BP 136/82; PULSE 72; RESP 20; TEMP 37.2; O2SAT 97; BMI 37.5
--- NOTE | 2024-12-28 12:46 | A.OFFPC_ITS ---
Vital Signs 12/28/24 12:46 Height 5 ft 2 in Weight 205 lb BMI 37.5 BP 136/82 Blood Pressure Location Lt brachial Position Sitting Respiration 20 Pulse 72 Pulse Source Pulse Oximeter Temp 98.9 F Temp Source Oral Pulse Oximetry (%) 97 Oxygen Delivery Method Room Air Intake Visit Reasons: Follow up after walk in BP Intake Note: Pt is here today for a follow up visit after being seen in a walk in for elevated BP. Pt also states that she has a a red spot on the R side of the side of her forehead near Allergies Penicillins (PCN) Allergy (Unknown, Verified 12/28/24 12:46) UNKNOWN Medication List - Last Reconciled 12/28/24 by Arelis Sapp MD acetaminophen 1,000 mg (2 x 500 mg) PO Q6H PRN [AutoPAP mode and pressure setting of 6-16 cm water humidified AIR As directed] benzonatate 200 mg PO BID PRN calcium carbonate-vitamin D3 600 mg-10 mcg (400 unit) caps PO carvedilol 12.5 mg PO BID 90 days cholecalciferol (vitamin D3) 50 mcg PO DAILY dextromethorphan polistirex ER (Delsym 12 hour) 10 mL PO Q12H estradiol patches transdermal levothyroxine (Levoxyl) 100 mcg PO DAILY simvastatin 10 mg PO DAILY 90 days valacyclovir (Valtrex) 1,000 mg PO BID valsartan 80 mg PO DAILY Tobacco use date assessed: 11/19/24 Dental Screening Dental Screen Date: 11/19/24 HPI Follow up after walk in BP HPI Details Pt complains of painful rash new right temporal region for 2 days. She reports headache but denies change in the vision nausea vomiting fever chills. She had elevated blood pressure readings on a few occasions and reports compliance with carvedilol. [facility] Medical History Acute respiratory disease Cough Moderate obstructive sleep apnea Witnessed apneic spells Labile hypertension Anxiety Impaired glucose tolerance Hypercholesterolemia History of thyroid cancer Hypothyroid Obesity (BMI 30-39.9) Surgical History History of hysterectomy History of thyroidectomy Family History Father Diabetes Hypertension CVD (cardiovascular disease) Mother CVD (cardiovascular disease) Hypertension Sister In good health Lung cancer Sister In good health Sister In good health Son In good health Paternal Uncle Myocardial infarction Maternal Uncle Myocardial infarction Social History (Updated 11/19/24 @ 11:38 by Arelis Sapp MD) Household Members Other:: , 1 son 35, lives in [place] Housing: House Alcohol intake: never Patient Tobacco Use Status: Never used Tobacco Tobacco use type: Cigarette Years Smoked: high school e-Cigarette/Vaping Use: Never Used Second Hand Smoke Exposure: No service: No Current occupational status: employed Current occupational exposures/hazards: No Cognitive needs: No Hearing needs: No Vision needs: Yes Questionnaire Thrive Questionnaire Date Thrive assessed: 07/15/24 I am a: Patient What is your living situation today?: I choose not to answer this question Within the past 12 months, did the food you bought not last and you didn't have the money to get more?: I choose not to answer this question Within the past 12 months, did you worry whether your food would run out before you got money to buy more?: I choose not to answer this question Do you have trouble paying for medicines?: No Do you have trouble getting transportation to medical appointments?: No Do you have trouble paying your heating and electricity bill?: No Do you have trouble taking care of your child, family member or friend?: No Do you have trouble with day-to-day activities such as bathing, preparing meals, shopping, managing finances, etc.?: No Are you currently unemployed and looking for a job?: No Are you interested in more education?: No Please select the resources that you would like help with: None Currently or been in a relationship where the following occur: I choose not to answer THRIVE Score: 0 YOLANDA-7 AMB Questionnaire YOLANDA-7 Date YOLANDA - 7 assessed: 07/15/24 Source: Developed by Drs. Vin Vallejo, Dalia Lui, Chacorta Doran and colleagues, with an educational severiano from [employer]. Review of Systems Const All systems reviewed & are unremarkable except as noted in HPI and below ENT Reports no additional complaints Card Reports no additional complaints Resp Reports no additional complaints GI Reports no additional complaints Reports no additional complaints Physical exam (Primary Care) Vital Signs: Last Vital Signs Temp 98.9 F 12/28/24 12:46 Pulse 72 12/28/24 12:46 Resp 20 12/28/24 12:46 BP 136/82 12/28/24 12:46 Pulse Ox 97 12/28/24 12:46 Oxygen Delivery Method Room Air 12/28/24 12:46 BMI result Body Mass Index 37.5 Tobacco/Smoking Status: Tobacco use Status Tobacco use date assessed 11/19/24 12/28/24 12:46 Patient Tobacco Use Status Never used Tobacco 12/28/24 12:46 Tobacco use type Cigarette 12/28/24 12:46 e-Cigarette/Vaping Use Never Used 12/28/24 12:46 Thrive Assessment: Date of Thrive Assessment Date Thrive assessed 07/15/24 12/28/24 12:46 Currently or been in a relationship where the following occur: I choose not to answer Const General: no acute distress HENMT Other: Erythematous vesicular rash on the right temporal region Ears: TM's normal bilaterally Eyes General: appearance normal, both eyes and all related structures Neck Neck: Yes no lymphadenopathy and Yes supple Resp Effort & Inspection: normal respiratory effort Auscultation: clear to auscultation bilaterally Cardio Rhythm: regular rhythm Heart sounds: S1 normal heart sound present and S2 normal heart sound present Coding Level of Care Code Est Pt Level 4 (35213) Diagnoses Hypertension I10 Zoster B02.9 Assessment & Plan Assessment & Plan (1) Hypertension: Code(s): I10 - Essential (primary) hypertension Category: Medical Plan: Add 80 mg of valsartan to carvedilol. Check basic metabolic panel in 1 week follow-up in 10 days (2) Zoster: Code(s): B02.9 - Zoster without complications Category: Medical Plan: Valtrex 1 g twice a day for 10 days is prescribed. Patient was advised to follow-up with high risk ob Orders: Orders Basic Metabolic Panel 1 Week I10 - Essential (primary) hypertension Medications: New valsartan 80 mg PO DAILY 90 tabs 0RF valacyclovir (Valtrex) 1,000 mg PO BID 20 tabs 0RF
--- OUTSIDE RECORDS SUMMARY | 2024-12-28 12:55 | XMS_ITS | Clinical Summary ---
Author Organization [facility] Address [address] [facility] [address] [place] [address] Phone Care Team Providers Care Superintendent Terminal Name Role Phone Kaci Eubanks MD Primary Care Provider [phone] Allergies Active Allergy Reactions Criticality Noted Date [...] Office Visit [facility] [address] [address] Elo Sepulveda ARNP [address] [address] Health Maintenance Due Date Last [...] this topic Insurance [employer] Care Teams Superintendent Terminal Relationship Specialty Start Date End Date Kaci Eubanks MD [address] [place] PCP - General 06/26/20
== END 2024-12-28 13:19 | disposition home or self-care (01) ==
LOC: HO.HMCC 11:33
PROVIDERS: PCP Internal Medicine; Visit Provider Internal Medicine
DX: I10 Essential (primary) hypertension (principal); B02.9 Zoster without complications

== ENCOUNTER 2025-01-06 12:35 | Outpatient (REF) | payer OTHER, SELFPAY ==
--- OUTSIDE RECORDS SUMMARY | 2024-04-30 05:10 | XMS_ITS ---
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 :1960 A ge:63 Y S ex:Female Date:04/30/2024 Address:[address] [place], [place] [address]E [facility] Pcp:Arelis Sapp MD Subjective: * Chief Complaints: * 1 . 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 * Medical History: H ypothyroidism, unspecified, Menopausal and female climacteric states, Hormone replacement therapy (postmenopausal), Inconclusive mammogram, Personal history of malignant neoplasm of thyroid. * Ladle Repairman History: G ravida/ Para . S exual [...] Electronic signature of Ezekiel Eid MD on 01/06/2025 at 12:56 PM EDT Sign off status: Pending * Appointment Provider: Breanna Eid M.D. Date: 06/30/2023 Generated for Elier glover/Mitchell/Justinitting on: 0 01/06/2025 12:56 PM EDT
--- OUTSIDE RECORDS SUMMARY | 2025-01-06 12:57 | XMS_ITS | Clinical Summary ---
Author Organization [facility] Address [address] [facility] [address] [place] [address] Phone Care Team Providers Care Quality Assurance Test Program Manager Name Role Phone Kaci Eubanks MD Primary Care Provider [phone] Allergies Active Allergy Reactions Criticality Noted Date [...] Office Visit [facility] [address] [address] Elo Seuplveda ARNP [address] [address] Health Maintenance Due Date Last [...] this topic Insurance [employer] Care Teams Quality Assurance Test Program Manager Relationship Specialty Start Date End Date Kaci Eubanks MD [address] [place] PCP - General 06/26/20
--- OUTSIDE RECORDS SUMMARY | 2025-01-06 12:57 | XMS_ITS | Clinical Summary ---
Author Organization [facility] Address [address] [place] [address] Phone Care Team Providers Care Food And Beverage Order Clerk Name Role Phone Kaci Eubanks MD Primary Care Provider [phone] Allergies Active Allergy Reactions Criticality Noted Date Comments Penicillins Unknown 04/26/2008 Medications carvedilol (COREG) 6.25 MG tablet Take 12.5 mg by mouth 2 (two) times a day. 01/13/2023 Active simvastatin (ZOCOR) 10 MG tablet Take 1 tablet by mouth daily. 01/13/2023 Active estradioL (VIVELLE-DOT) 0.0375 mg/24 hr 1 patch once a week. 09/03/2021 Active cholecalciferol (VITAMIN D3) 25 MCG (1,000 unit) tablet Take 1,000 Units by mouth daily. Active estradioL (VIVELLE-DOT) 0.025 mg/[address] 1 patch onto the skin 2 (two) times a week. Active LEVOXYL 100 mcg tablet Take 1 tablet (100 mcg total) by mouth every morning. 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 Gained 9 pounds in the last year and a half. Increased fatigue with daytime sleepiness and home sleep study consistent with severe sleep apnea. -Increase levothyroxine to 100 mcg daily. May use up the 88 mcg levothyroxine by taking 8 tablets/week= 100.6 mcg daily average dose. -Repeat TFTs in 2 to 3 months. -Patient will pursue inpatient sleep study Assessment & Plan (01/14/2023 5:30 PM EDT): Taking 88 mcg levothyroxine consistently. Clinically and biochemically euthyroid. TSH is close to target at 2.68 in 06/2022 and 2.65 in 12/2022. We will continue current treatment and repeat TSH yearly or as clinically indicated. Reviewed symptoms of under and over replacement, patient to call if concerned. Medullary thyroid carcinoma 01/14/2023 Overview (01/14/2023): Left 1.7 cm medullary thyroid cancer, status post total thyroidectomy in 04/2008. Calcitonin less than 5. Assessment & Plan (08/14/2024 8:11 PM EST): History of left 1.7 cm medullary thyroid cancer, status post total thyroidectomy in 04/2008. Calcitonin remains unmeasurable and CEA remains within the normal range last tested on 01/19/2024. -Plan to repeat these tumor markers yearly. Assessment & Plan (01/14/2023 5:28 PM EDT): History of left 1.7 cm medullary thyroid cancer, status post total thyroidectomy in 04/2008. Calcitonin remains unmeasurable and CEA remains within the normal range last tested on 01/10/2023. Plan to repeat these tumor markers yearly. 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 Unmeasurable thyroglobulin and thyroglobulin antibody Assessment & Plan (08/14/2024 8:12 PM EST): Incidental 3 mm isthmus papillary thyroid cancer at the time of total thyroidectomy for medullary thyroid cancer. Unmeasurable thyroglobulin and thyroglobulin antibody, last tested in 01/2024 while TSH 2.47. -Plan to monitor thyroglobulin and thyroglobulin antibody yearly. Keep TSH around 0.5-2.5 -See above regarding increasing levothyroxine dose Assessment & Plan (01/14/2023 5:29 PM EDT): Incidental 3 mm isthmus papillary thyroid cancer at the time of total thyroidectomy for medullary thyroid cancer. Unmeasurable thyroglobulin and thyroglobulin antibody Plan to monitor thyroglobulin and thyroglobulin antibody yearly. Keep TSH around 0.5-2.5 Social History Tobacco Use Types Packs/Day Years Used Date Smoking Tobacco: Never Passive Smoke Exposure: Never Smokeless Tobacco: Never Tobacco Cessation:Counseling Given: Not Answered Alcohol Use Standard Drinks/Week Comments Never 0 (1 standard drink = 0.6 oz pur e alcohol) Education Answer Date Recorded Are you interested in more education? Not on stewart e 10/10/2022 Are you concerned about learning? Not on file 10/10/2022 No 10/10/2022 No 10/10/2022 Digital Access Answer Date Recorded No 11/05/2022 No 11/05/2022 Reliable internet access at home? Not on file 11/05/2022 Device with a working camera? Not on file Comments Unknown Sex and Gender Information Value Date Recorded Sex Assigned at Not on file Legal Sex Female 7:58 PM EST Gender Identity Not on file Sexual Orientation Not on file Last Filed Vital Signs Vital Sign Reading Time Taken Comments Blood Pressure 142/84 01/19/2024 2:24 PM EDT Pulse 91 07/26/2024 12:58 PM EST Temperature - - Respiratory Rate - - Oxygen Saturation 98% 07/26/2024 12:58 PM EST Inhaled Oxygen Concentration - - Weight 95 kg (209 lb 6.4 oz) 07/26/2024 12:58 PM EST Height 159.4 cm (5' 2.76 ) 07/26/2024 12:[address] Body Mass Index 37.38 07/26/2024 12:58 PM EST Plan of Treatment Upcoming Encounters Date Type Department Care Team (Late st Contact Info) Description 03/23/2025 3:40 PM EDT Office Visit [facility] [address] [place] [address] Marie Acosta MD [address] [place] [id number] [email or web address] Maintenance Due Date Last Done Comments LIPID PANEL 1961 DEPRESSION SCREENING 1973 HEPATITIS C SCREENING 1979 HIV ONE-TIME SCREENING (18-65 YEARS) 1979 ZOSTER VACCINES (1 of 2) 1980 PAP SMEAR 1982 MAMMOGRAM 2001 COLOGUARD 2006 COLONOSCOPY 2006 COLORECTAL CANCER SCREENING 2006 FIT TEST 2006 FOBT 2006 SIGMOIDOSCOPY 2006 VIRTUAL COLONOSCOPY 2006 PNEUMOCOCCAL VACCINES (50+ years) (2 of 2 - PCV) 06/26/2019 06/26/2018 COVID-19 VACCINE (2 - season) 2024 09/07/2020 TSH LEVEL 07/21/2025 07/21/2024, 08/0 10/2023, 01/10/2023, Additional history exists SCREENING FOR DIABETES 01/18/2027 01/19/2024 Adult Td,Tdap Booster 06/17/2028 06/17/2018 , 09/08/2015, 11/11/2006 RSV VACCINE (1 - 1-dose 75+ series) 2036 SMOKING STATUS SCREENING (Once After 26 Yrs) Completed 01/19/2024 HEPATITIS A VACCINES Aged Out No long er eligible based on patient's age to complete this topic HIB VACCINES Aged Out No longer eligi ble based on patient's age to complete this topic MENINGOCOCCAL VACCINES (ACWY) Aged Out No longer eligible based on patient's age to complete this topic MENINGOCOCCAL VACCINES (B) Aged Out N o longer eligible based on patient's age to complete this topic Medical Devices Not on file Procedures Procedure Name Priority Date/Time Associated Diagnosis Comments TSH WITH REFLEX Routine 07/21/2024 11:49 AM EST Postoperative hypothyroidism from Last 3 Months or Most Recently Relevant to Health Maintenance Results * (ABNORMAL) TSH with reflex (07/21/2024 11:49 AM EST) TSH 4.21(H) 0.27 - 4.20 uIU/mL [facility] Blood 07/21/2024 11:4 9 AM EST 07/21/2024 11:56 AM EST us Marie Acosta MD LAB BLOOD ORDERABLES Final Res ult Performing Organization Address City/State/[facility] Co de Phone Number [address] [address] from Last 3 Months or Most Recently Relevant to Health Maintenance Insurance [facility] PPO [facility] PPO CIGNA PPO [employer]IGNA PPO [employer]IG[employer] PPO [employer]IG[employer] PPO Care Teams Food And Beverage Order Clerk Relationship Specialty Start Date End Date Kaci Eubanks MD [address] [place] [phone] PCP - General Internal Medicine 10/04/22 Additional Source Comments The information contained in this document represents components of the legal health record. It is not the complete legal health record.[facility]
[2025-01-06 16:42] LABS: Anion Gap 12 (12-20); Blood Urea Nitrogen 15 mg/dL (9-16); Calcium 8.3 mg/dL (8.4-10.2); Carbon Dioxide 30 mmol/L (22-29); Chloride 103 mmol/L (96-108); Estimated Glomerular Filt Rate > 60; Potassium 4.2 mmol/L (3.3-5.1); Sodium 141 mmol/L (135-145)
== END 2025-01-06 12:36 | disposition home or self-care (01) ==
LOC: HO.HMGCLDS 12:35
PROVIDERS: PCP Internal Medicine; Visit Provider Internal Medicine
DX: I12.9 Hypertensive chronic kidney disease with stage 1 through stage 4 chronic kidney disease, or unspecified chronic kidney disease (principal); N18.4 Chronic kidney disease, stage 4 (severe)
CPT/HCPCS: 36415; 80048

== ENCOUNTER 2025-01-07 11:00 | Outpatient (AMB) | payer OTHER, SELFPAY ==
--- OUTSIDE RECORDS SUMMARY | 2024-04-30 05:10 | XMS_ITS ---
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 :1960 A ge:63 Y S ex:Female Date:04/30/2024 Address:[address] [place], [place] [address]E [facility] Pcp:Arelis Sapp MD Subjective: * Chief Complaints: * 1 . 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 * Medical History: H ypothyroidism, unspecified, Menopausal and female climacteric states, Hormone replacement therapy (postmenopausal), Inconclusive mammogram, Personal history of malignant neoplasm of thyroid. 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 S exual [...] Electronic signature of Ezekiel Eid MD on 01/07/2025 at 11:11 AM EDT Sign off status: Pending * Appointment Provider: Breanna Eid M.D. Date: 06/30/2023 Generated for Elier glover/Mitchell/eTwilmersmitting on: 0 01/07/2025 11:11 AM EDT
--- OUTSIDE RECORDS SUMMARY | 2025-01-07 11:11 | XMS_ITS | Clinical Summary ---
Author Organization [facility] Address [address] [facility] [address] [place] [address] Phone Care Team Providers Care Stabilizer Operator Name Role Phone Kaci Eubanks MD Primary Care Provider [phone] Allergies Active Allergy Reactions Criticality Noted Date [...] Office Visit [facility] [address] [address] Elo Sepulveda ARNP [address] [address] Health Maintenance Due Date Last [...] this topic Insurance [employer] Care Teams Stabilizer Operator Relationship Specialty Start Date End Date Kaci Eubanks MD [address] [place] PCP - General 06/26/20
--- OUTSIDE RECORDS SUMMARY | 2025-01-07 11:11 | XMS_ITS | Clinical Summary ---
Author Organization [facility] Address [address] [place] [address] Phone Care Team Providers Care Machine Grinder Name Role Phone Kaci Eubanks MD Primary Care Provider [phone] Allergies Active Allergy Reactions Criticality Noted Date [...] thyroglobulin antibody yearly. Keep TSH around 0.5-2.5 Encounters Date Type Department Care Team Description 01/06/2025 Refill [facility] [address] [place] [address] [place] [address] Marie Acosta MD Medication Refill from Last 3 Months Social History Tobacco Use Types Packs/Day Years [...] 3:40 PM EDT Office Visit [facility] [address] [place] [address] [place] [address] Marie Acosta MD [address] [place] [phone] [email or web address] Health Maintenance Due Date Last Done Comments [...] PCV) 06/26/2019 06/26/2018 COVID-19 VACCINE (2 - 2023- season) 2024 09/07/2020 TSH LEVEL 07/21/2025 07/21/2024, 0810/2023, 01/10/2023, Additional history exists SCREENING FOR DIABETES [...] EST) TSH 4.21(H) 0.27 - 4.20 uIU/mL [facility] Blood 07/21/2024 11:4 9 AM EST 07/21/2024 11:56 AM EST us Marie Acosta MD LAB BLOOD ORDERABLES Final Res ult [address] [address] from Last 3 Months or Most Recently Relevant to Health Maintenance Insurance [employer] PPO [employer] PPO [employer]IGNA PPO CIGNA PPO [employer]IG[employer] PPO [employer] PPO Care Teams Machine Grinder Relationship Specialty Start Date End Date Kaci Eubanks MD [address] [place] [phone] PCP - General Internal Medicine 10/04/22 Additional Source Comments The information contained in this document represents components of the legal health record. It is not the complete legal health record.[facility]
[2025-01-07 11:42] VITALS: BP 170/98; PULSE 80; RESP 16; TEMP 36.7; O2SAT 98; BMI 38.4
--- NOTE | 2025-01-07 11:42 | MHC.PC.OV ---
Vital Signs 01/07/25 11:42 01/07/25 15:42 Height 5 ft 2 in Weight 210 lb BMI 38.4 BP 170/98 H 140/90 H Blood Pressure Location Lt brachial Rt brachial Position Sitting Sitting Respiration 16 Pulse 80 Pulse Source Pulse Oximeter Temp 98.1 F Temp Source Oral Pulse Oximetry (%) 98 Oxygen Delivery Method Room Air Intake Visit Reasons: 10 days f/up-ok with [place] Warhead Maintenance Specialist Required: No Accompanied by: Self / Same As Patient Allergies Penicillins (PCN) Allergy (Unknown, Verified 01/07/25 11:44) UNKNOWN Tobacco use date assessed: 11/19/24 Dental Screening Dental Screen Date: 01/07/25 Did you have a dental visit in the last 12 months?: Yes Did you have a dental problem in the last 6 months where you did not have access to dental care?: No Was dental information given to patient?: Patient has dentist HPI 10 days f/up-ok with [place] HPI Details Patient presents for the follow-up herpes zoster. pain resolved and a rash almost completely healed on the right temporal region. Patient did not start taking valsartan yet. She has been taking carvedilol [facility] Medical History Acute respiratory disease Cough Moderate obstructive sleep apnea Witnessed apneic spells Labile hypertension Anxiety Impaired glucose tolerance Hypercholesterolemia History of thyroid cancer Hypothyroid Obesity (BMI 30-39.9) Surgical History History of hysterectomy History of thyroidectomy Family History Father Diabetes Hypertension CVD (cardiovascular disease) Mother CVD (cardiovascular disease) Hypertension Sister In good health Lung cancer Sister In good health Sister In good health Son In good health Paternal Uncle Myocardial infarction Maternal Uncle Myocardial infarction Social History Household Members Other:: , 1 son 35, lives in [place] Housing: House Alcohol intake: never Patient Tobacco Use Status: Never used Tobacco Tobacco use type: Cigarette Years Smoked: high school e-Cigarette/Vaping Use: Never Used Second Hand Smoke Exposure: No service: No Current occupational status: employed Current occupational exposures/hazards: No Cognitive needs: No Hearing needs: No Vision needs: Yes Questionnaire Thrive Questionnaire Date Thrive assessed: 07/15/24 I am a: Patient What is your living situation today?: I choose not to answer this question Within the past 12 months, did the food you bought not last and you didn't have the money to get more?: I choose not to answer this question Within the past 12 months, did you worry whether your food would run out before you got money to buy more?: I choose not to answer this question Do you have trouble paying for medicines?: No Do you have trouble getting transportation to medical appointments?: No Do you have trouble paying your heating and electricity bill?: No Do you have trouble taking care of your child, family member or friend?: No Do you have trouble with day-to-day activities such as bathing, preparing meals, shopping, managing finances, etc.?: No Are you currently unemployed and looking for a job?: No Are you interested in more education?: No Please select the resources that you would like help with: None Currently or been in a relationship where the following occur: I choose not to answer THRIVE Score: 0 YLOANDA-7 AMB Questionnaire YOLANDA-7 Date YOLANDA - 7 assessed: 07/15/24 Source: Developed by Drs. Vin Vallejo, Dalia Lui, Chacorta Doran and colleagues, with an educational severiano from [employer]. Review of Systems Const All systems reviewed & are unremarkable except as noted in HPI and below Eyes Reports no additional complaints ENT Reports no additional complaints Card Reports no additional complaints Resp Reports no additional complaints GI Reports no additional complaints Reports no additional complaints Physical exam (Primary Care) Vital Signs: Last Vital Signs Temp 98.1 F 01/07/25 11:42 Pulse 80 01/07/25 11:42 Resp 16 01/07/25 11:42 BP 170/98 H 01/07/25 11:42 Pulse Ox 98 01/07/25 11:42 Oxygen Delivery Method Room Air 01/07/25 11:42 BMI result Body Mass Index 38.4 Tobacco/Smoking Status: Tobacco use Status Tobacco use date assessed 11/19/24 01/07/25 11:47 Patient Tobacco Use Status Never used Tobacco 01/07/25 11:47 Tobacco use type Cigarette 01/07/25 11:47 e-Cigarette/Vaping Use Never Used 01/07/25 11:47 Thrive Assessment: Date of Thrive Assessment Date Thrive assessed 07/15/24 01/07/25 11:47 Currently or been in a relationship where the following occur: I choose not to answer Const General: no acute distress HENMT Head: Yes normal to inspection Mouth: Normal oral and palatal mucosa present Eyes General: appearance normal, both eyes and all related structures Resp Effort & Inspection: normal respiratory effort Auscultation: clear to auscultation bilaterally Cardio Rhythm: regular rhythm Heart sounds: S1 normal heart sound present and S2 normal heart sound present Coding Level of Care Code Est Pt Level 4 (06561) Diagnoses Severe sleep apnea G47.30 Hypertension I10 Assessment & Plan Assessment & Plan (1) Severe sleep apnea: Comment: Home sleep study consistent with moderate to severe sleep apnea and hypoxia Code(s): G47.30 - Sleep apnea, unspecified Category: Medical Plan: Referred for in-lab sleep studies to evaluate (2) Hypertension: Code(s): I10 - Essential (primary) hypertension Category: Medical Plan: AT VALSARTAN TO CARVEDILOL, LOW-SODIUM DIET REGULAR PHYSICAL ACTIVITY DISCUSSED WITH THE PATIENT Orders: Orders RT PSG in-lab sleep study Today G47.30 - Sleep apnea, unspecified Basic Metabolic Panel 02/15/25 I10 - Essential (primary) hypertension
[2025-01-07 15:42] VITALS: BP 140/90
== END 2025-01-07 12:42 | disposition home or self-care (01) ==
LOC: HO.HMCC 11:01
PROVIDERS: PCP Internal Medicine; Visit Provider Internal Medicine
DX: G47.30 Sleep apnea, unspecified (principal); I10 Essential (primary) hypertension

== ENCOUNTER 2025-02-16 13:10 | Outpatient (REF) | payer OTHER, SELFPAY ==
--- OUTSIDE RECORDS SUMMARY | 2024-04-30 05:10 | XMS_ITS ---
Author Organization [facility] Address [address] [place] [id number] Care Team Providers Care Rehabilitation Technician Name Role Phone Sekou ARIZA, Arelis Primary Care Provider Daniella Fabian Unavailable [phone] Allergies Allergen (clinical drug ingredient) Drug/Non Drug Allergy documented on EMR Reaction Allergy Type Onset Date Status Penicillin Unknown Drug Allergy Active REASON FOR VISIT Annual REGISTER CLERK Physical Encounters Encounter Location Date Provider Diagnosis [address] [address] 04/30/2024 Daniella Eid Plan Of Treatment Next Appt Details Provider Name:Daniella bernabe, 08/05/2025 02:00:00 PM, [address] [place] [address], [address], [place], [address], Progress Notes * RODRICK LOCKWOODDOB:[birth year] (64 yo F)Acc No.[id number]:04/30/2024 PROGRESS NOTES Patient: JULIETTE COLLIERZABETH Appointment Provider: Breanna Eid M.D. :1960 A ge:63 Y S ex:Female Date:04/30/2024 Address:[address] [place], [place] [address] [id number] Pcp:Arelis Sapp MD Subjective: * Chief Complaints: * 1 . Annual REGISTER CLERK Physical. * Medical History: H ypothyroidism, unspecified, Menopausal and female climacteric states, Hormone replacement therapy (postmenopausal), Inconclusive mammogram, Personal history of malignant neoplasm of thyroid. * Crisis Therapist History: G ravida/ Para . S exual [...] Electronic signature of Ezekiel Eid MD on 02/16/2025 at 03:28 PM EDT Sign off status: Pending * Appointment Provider: Breanna Eid M.D. Date: 06/30/2023 Generated for Elier glover/Mitchell/Justinitting on: 0 02/16/2025 03:28 PM EDT
--- OUTSIDE RECORDS SUMMARY | 2025-02-16 15:28 | XMS_ITS | Encounter Summary ---
Author Organization [facility] Address [address] [place] [address] Phone Care Team Providers Care Street Inspector Name Role Phone Unknown, Unknown Primary Care Provider Kaci Parks MD Primary Care Provider [phone] Encounter Details Date Type Department Care Team (Late st Contact Info) Description 05/02/2017 Transcribe Orders [facility] [address] [place] [address] Kaci Eubanks MD [address] [place] [phone] Personal history of malignant neoplasm of thyroid (Primary Dx) Social History Tobacco Use Types Packs/Day Years Used Date Smoking Tobacco: Never Assessed Comments Unknown Sex and Gender Information Value Date Recorded Sex Assigned at Not on file Legal Sex Female 7:58 PM EST Gender Identity Not on file Sexual Orientation Not on file documented as of this encounter Plan of Treatment Upcoming Encounters Date Type Department Care Team (Late st Contact Info) Description 03/23/2025 3:40 PM EDT Office Visit [facility] [address] [place] [address] Marie Acosta MD [address] [place] [address] documented as of this encounter Results * Calcitonin (05/02/2017 10:33 AM EST) [facility] CALCITONIN <5.0 <=7.6 pg/mL [facility] Comment: (NOTE) ADDITIONAL INFORMATION The testing method is an electrochemiluminescence assay manufactured by [employer] and performed on the [employer] system. Values obtained with different assay methods or kits may be different and cannot be used interchangeably. Test results cannot be interpreted as absolute evidence for the presence or absence of malignant disease. Blood 05/02/2017 10:3 3 AM EST 05/02/2017 10:40 AM EST Kaci Eubanks MD LAB BLOOD ORDERABLES Final Re sult Performing Organization Address [facility] de Phone Number [facility] [place] [address] * Thyroglobulin antibodies (05/02/2017 10:33 AM EST) [facility] THYROGLOBULIN ANTIBODY, S <1.8 <4.0 IU/mL [facility] Comment: (NOTE) ADDITIONAL INFORMATION The thyroglobulin antibody testing method is an immunoenzymatic assay manufactured by [employer] and performed on the [employer] DXI 800. Values obtained from different assay methods or kits may be different and cannot be used interchangeably. The results cannot be interpreted as absolute evidence for the presence or absence of malignant disease. Blood 05/02/2017 10:3 3 AM EST 05/02/2017 10:40 AM EST us Kaci Eubanks MD LAB BLOOD ORDERABLES Final Re sult Performing Organization Address [facility] de Phone Number [facility]PATH [address] [place] [address] * TSH (05/02/2017 10:33 AM EST) TSH 2.44 0.27 - 4.20 uIU/mL [facility] Blood 05/02/2017 10:3 3 AM EST 05/02/2017 10:40 AM EST us Kaci Eubanks MD LAB BLOOD ORDERABLES Final Re sult Performing Organization Address City/[facility]/ZIP Co de Phone Number [address] [address] * Carcinoembryonic antigen (CEA) (05/02/2017 10:33 AM EST) CEA 0.6 ng/mL [facility] Comment: Nonsmokers: less than or equal to 3.0 ng/mL Smokers: less than 5.0 ng/mL Blood 05/02/2017 10:3 3 AM EST 05/02/2017 10:40 AM EST us Kaci Eubanks MD LAB BLOOD ORDERABLES Final Re sult Performing Organization Address City/[facility] Co de Phone Number [address] [address] documented in this encounter Visit Diagnoses Diagnosis Personal history of malignant neoplasm of thyroid- Primary documented in this encounter Care Teams Street Inspector Relationship Specialty Start Date End Date Unknown, Unknown, MD PCP - General 05/02/17 10/03/22 Kaci Eubanks MD [address] [place] [phone] PCP - General Internal Medicine 10/04/22 documented as of this encounter Additional Source Comments The information contained in this document represents components of the legal health record. It is not the complete legal health record.[facility]
--- OUTSIDE RECORDS SUMMARY | 2025-02-16 15:28 | XMS_ITS | Clinical Summary ---
Author Organization [facility] Address [address] [address] Phone Care Team Providers Care Circulating Nurse Name Role Phone Kaci Eubanks MD Primary Care Provider [phone] Allergies Active Allergy Reactions Criticality Noted Date [...] a week. Active LEVOXYL 100 mcg tablet TAKE 1 TABLET BY MOUTH EVERY DAY IN THE MORNING 90 tablet 1 01/09/2025 Active Active Problems Problem Noted Date Diagnosed [...] Care Team Description 01/06/2025 Refill [facility] [address] [place] [address] [place] [address] Marie Acosta MD Medication Refill from Last [...] 3:40 PM EDT Office Visit [facility] [address] [place] [address] [place] [address] Marie Acosta MD [address] [place] [id number] [email or web address] Health Maintenance Due Date Last Done Comments LIPID PANEL 1961 DEPRESSION SCREENING 1973 HEPATITIS C SCREENING 1979 HIV ONE-TIME SCREENING (18-65 YEARS) 1979 ZOSTER VACCINES (1 of 2) 1980 PAP SMEAR 1982 MAMMOGRAM 2001 COLOGUARD 2006 COLONOSCOPY 2006 COLORECTAL CANCER SCREENING 2006 FIT TEST 2006 FOBT 2006 SIGMOIDOSCOPY 2006 VIRTUAL COLONOSCOPY 2006 PNEUMOCOCCAL VACCINES (50+ years) (2 of 2 - PCV) 06/26/2019 06/26/2018 INFLUENZA VACCINE (#1) 2025 COVID-19 VACCINE (2 - 2024- season) 2025 09/07/2020 TSH LEVEL 07/21/2025 07/21/2024, 08/0 10/2023, [...] EST) TSH 4.21(H) 0.27 - 4.20 uIU/mL [facility] Blood 07/21/2024 11:4 9 AM EST 07/21/2024 11:56 AM EST us Marie Acosta MD LAB BLOOD ORDERABLES Final Res ult [address] [address] from Last 3 Months or Most Recently Relevant to Health Maintenance Insurance CIGNA PPO [place] PPO CIGNA PPO CIGNA PPO CIGNA PPO CIGNA PPO Care Teams Circulating Nurse Relationship Specialty Start Date End Date Kaci Eubanks MD [address] [place] [phone] PCP - General Internal Medicine 10/04/22 Additional Source Comments The information contained in this document represents components of the legal health record. It is not the complete legal health record.[facility]
--- OUTSIDE RECORDS SUMMARY | 2025-02-16 15:28 | XMS_ITS | Patient Health Record ---
Author Organization [facility] Address [address] [place] [address] Care Team Providers Care Livestock Inspector Name Role Phone Arelis Sapp MD Primary Care Provider Daniella Fabian Unavailable [phone] Allergies Allergen (clinical drug ingredient) Drug/Non Drug [...] Start Date End Date Status Calcium 500MG ORAL; Duration: -3 08/09/2011 Active Estradiol 0.0375 MG/24HR APPLY 1 PATCH T WICE A WEEK; Duration: 84 Active Carvedilol 6.25 MG take 1 tablet by candy th twice a day Oral; Duration: 90 Active Estradiol 0.0375 MG/24HR 1 patch to skin Transdermal Two times a Week; Duration: 90 days 07/30/2024 Active Clotrimazole-Betamethasone 1-0.05 % 1 application to affected area Externally TWICE A DAY FOR 1 TO 2 WEEKS; Duration: 14 days 12/22/2024 Active Vitamin D3 50 MCG (1999 [place]) 1 capsule Orally Once a day; Duration: 30 day(s) Active Simvastatin 10 MG 1 tablet in the even ing Orally Once a day Active Levoxyl 88 MCG 1 Orally daily 08/09/2011 Active Social History Tobacco Use: Social History [...] Problem History of malignant neoplasm of thyroid (303365296) Personal history of malignant neoplasm of thyroid (Z85.850) Active confirmed Problem Menopause (154503049) Menopausal and female climacteric states (N95.1) Active confirmed Problem Hypothyroidism (67951160) Unspecified hypothyroidism (244.9) Active confirmed Major Problem Vulvovaginitis (disorder) (66915305) Unspecified vaginitis and vulvovaginitis (616.10) Active confirmed Diag Problem Menopausal symptom (24287805) Symptomatic menopausal or female climacteric states (627.2) Active confirmed Major Problem Gynecological examination normal (582749813702106) Routine gynecological examination (V72.31) Active confirmed Major Problem Screening for malignant neoplasm of colon (060940654) Special screening for malignant neoplasms, colon (V76.51) Active confirmed Major Vital Signs Temperature 98.0 degrees Fahrenheit 12/22/2024 Blood pressure diastolic 106 mm Hg 12/22/2024 Height 62.5 in 12/22/2024 Blood pressure systolic 176 mm Hg 12/22/2024 Weight 209 lbs 12/22/2024 BMI 37.61 kg/m2 12/22/2024 Encounters Encounter Location Date Provider Diagnosis [facility] [address] [place] [address] 07/30/2024 Daniella Eid Encounter for gynecological examination (general) (routine) without abnormal findings Z01.419 ; Encounter for screening mammogram for malignant neoplasm of breast Z12.31 ; Hormone replacement therapy Z79.890 and Hematuria, unspecified R31.[address] [place] [address] 12/22/2024 Daniella Eid Chronic candidiasis of vulva and vagina B37.32 Assessments Encounter Date Diagnosis (ICD Code) Assessment Notes Treatment Notes Treatment Clinical Notes Section Notes 07/30/2024 Encounter for gynecological examination (general) (routine) without abnormal findings (ICD-10 - Z01.419) NO MORE PAP TESTS. 12/22/2024 Chronic candidiasis of vulva and vagina (ICD-10 - B37.32) DISCUSSED FINDINGS, DX AND TX OPTIONS. 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 DISCUSSED THE VICIOUS CYCLE SHE IS IN. SHE NEEDS TO STOP SCRATCHING. THE MORE SHE SCRATCHES, THE THICKER THE SKIN AND ITCHING WORSENS. WILL TREAT WITH LOTRISONE CREAM. RX AND INSTRUCTIONS WERE GIVEN. 07/30/2024 Encounter for screening mammogram for malignant neoplasm of breast (ICD-10 - Z12.31) REGULAR MAMMOGRAMS AND SBE'S WERE RECOMMENDED. 07/30/2024 Hormone replacement therapy (ICD-10 - Z79.890) DISCUSSED BENEFITS AND RISKS OF HRT. PAT WANTS TO CONTINUE AND HAS NO CONTRAINDICATION S. RX FOR ESTRADIOL CREAM WAS SENT. 07/30/2024 [...] Provider Name:Daniella bernabe, 08/05/2025 02:00:00 PM, [address], [address], [place], [address], Insurance Providers Payer Name Payer Address Payer Phone Subscriber Number Group Number Insured Name Patient Relationship to Insured Coverage Start Date Coverage End Date [employer] [address] [place] [id number] HEIDI LOCKWOOD Spouse - patient is the spouse of the insured 4 Medical (General) History Medical History History ICD Code Hypothyroidism, unspecified E03.9 Menopausal and female climacteric states N95.1 Hormone replacement therapy (postmenopau flory) Z79.890 Inconclusive mammogram R92.2 Personal history of malignant neoplasm o f thyroid Z85.850 Mammographic fibroglandular density, debbie ateral breasts R92.323 Surgical History Surgery Date(Month/Year) Colonoscopy CAROLE/BSO S/P Thyroidectomy - Thyroid Cancer 2008 Hospitalization History Reason Date(Month/Year) See Surgical Hx 1 Vaginal Delivery
--- OUTSIDE RECORDS SUMMARY | 2025-02-16 15:29 | XMS_ITS | Clinical Summary ---
Author Organization [facility] Address [address] [address] Phone Care Team Providers Care It Network Engineer Name Role Phone Kaci Eubanks MD Primary Care Provider [phone] Allergies Active Allergy Reactions Criticality Noted Date [...] Care Team (Late st Contact Info) Description 03/02/2025 1:45 PM EDT Office Visit [facility] [address] [facility] [facility] [address] [place] [address] Elo Sepulveda ARNP [address] [facility] [facility] [place] [address] Health Maintenance Due Date Last Done Comments Breast Cancer Screening 1961 Pneumococcal Vaccine: 50+ Ye ars (1 of 2 - PCV) 1980 Colorectal Cancer Screening: Annual FOBT 2010 Colorectal Cancer Screening: Colonoscopy 2010 Colorectal Cancer Screening: Sigmoidoscopy 2010 Influenza Vaccine (#1) 2025 Hepatitis B Vaccine Aged Out No longe r eligible based on patient's age to complete this topic Procedures Procedure Name Priority Date/Time Associated Diagnosis Comments EXT RESULT ENTRY Routine 01/06/2025 from Last 3 Months Results * (ABNORMAL) EXT RESULT ENTRY (01/06/2025) Sodium 141 137 - 147 Potassium 4.2 3.4 - 5.5 Carbon Dioxide 30 mmol/L BUN 15 4 - 21 mg/dL Creatinine 0.77 0.50 - 1.10 mg/dL Calcium 8.3(A) 8.7 - 10.7 mg/dL eGFR Non-Afr Niuean >60 01/06/2025 us Historical Provider LAB BLOOD ORDERABLES Darlin l Result from Last 3 Months Insurance Cigna Cigna Care Teams It Network Engineer Relationship Specialty Start Date End Date Kaci Eubanks MD [address] [place] PCP - General 06/26/20
[2025-02-16 16:16] LABS: MANUAL DIFF FLAG NO
[2025-02-16 16:29] LABS: Hematocrit 38.4 % (37.0-47.0); Hemoglobin 12.7 g/dl (12.0-16.0); Imm Gran Abs Auto 0.02 X10*3/uL (0.00-0.03); Imm Gran Pct Auto 0.2 % (0.0-0.4); Lymphocytes Absolute Auto 2.3 X10*3/uL (1.2-4.9); Mean Corpuscular HGB Conc 33.1 g/dl (31.0-35.0); Mean Corpuscular Hemoglobin 30.8 pg (27.0-33.0); Mean Corpuscular Volume 93.2 fL (80.0-98.0); NRBC Abs Auto 0.000 X10*3/uL (0.0-0.012); NRBC Pct Auto 0.0 /100WBC (0.0-0.2); Platelet Count 215 X10*3/uL (160-400); Red Blood Count 4.12 X10*6/uL (4.20-5.50); White Blood Count 8.4 X10*3/uL (4.8-10.8)
[2025-02-16 16:35] LABS: Alanine Aminotransferase 17 U/L (0-31); Albumin Level 4.3 g/dL (3.5-5.0); Alkaline Phosphatase 73 U/L (39-117); Anion Gap 14 (12-20); Aspartate Amino Transferase 20 U/L (5-31); Blood Urea Nitrogen 16 mg/dL (9-16); Calcium 8.6 mg/dL (8.4-10.2); Carbon Dioxide 29 mmol/L (22-29); Chloride 105 mmol/L (96-108); Cholesterol 205 mg/dL (<200); Estimated Glomerular Filt Rate > 60; HDL Cholesterol 60 mg/dL (>40); Potassium 4.1 mmol/L (3.3-5.1); Sodium 144 mmol/L (135-145); Total Protein 7.3 g/dL (6.5-8.0); Triglycerides 109 mg/dL (<150)
== END 2025-02-16 13:11 | disposition home or self-care (01) ==
LOC: HO.HMGCLDS 13:10
PROVIDERS: PCP Internal Medicine; Visit Provider Internal Medicine
DX: I10 Essential (primary) hypertension (principal); E78.00 Pure hypercholesterolemia, unspecified; R73.02 Impaired glucose tolerance (oral)
CPT/HCPCS: 36415; 80048; 80053; 80061; 82248; 85025

== ENCOUNTER 2025-02-18 10:50 | Outpatient (AMB) | payer OTHER, SELFPAY ==
--- OUTSIDE RECORDS SUMMARY | 2024-04-30 05:10 | XMS_ITS ---
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 :1960 A ge:63 Y S ex:Female Date:04/30/2024 Address:[address] [place], [place] [address]E [id number] Pcp:Arelis Sapp MD Subjective: * Chief Complaints: * 1 . 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 * Medical History: H ypothyroidism, unspecified, Menopausal and female climacteric states, Hormone replacement therapy (postmenopausal), Inconclusive mammogram, Personal history of malignant neoplasm of thyroid. * Senior Research Consultant History: G ravida/ Para . S exual activity c urrently sexually active. L ast Pap Smear: . M ammogram: 1 08/11/22 < 50% density, 05/21/21 50-75% density, 05/17/20 < 50% density, 04/13/19 < 50% density, 03/27/18 < 50% density, 01/2017 normal, 01/2016, normal, 01/13/15 < 50% density, 12/24/13. L MP and menses H yst. H ysterectomy: Y es, CAROLE/BSO. C olonoscopy 2 2007. B one Density: 1 . G YN HISTORY MISC. Bere Score 9%. * OB History: T otal pregnancies 1 . T otal living children 1 . N VD 1 . * Allergies: P enicillin: Unknown - Allergy. Objective: * Vitals: Assessment: Plan: * Treatment: * Images: Billing Information: * Visit Code: * Procedure Codes: * Electronic signature of Ezekiel Eid MD on 02/18/2025 at 11:55 AM EDT Sign off status: Pending * Appointment Provider: Breanna Eid M.D. Date: 06/30/2023 Generated for Elier glover/Mitchell/Javansmitting on: 0 02/18/2025 11:55 AM EDT
[2025-02-18 11:07] VITALS: BP 126/84; PULSE 78; RESP 19; TEMP 36.8; O2SAT 99; BMI 38.2
--- NOTE | 2025-02-18 11:07 | MHC.PC.OV ---
Vital Signs 02/18/25 11:07 Height 5 ft 2 in Weight 209 lb BMI 38.2 BP 126/84 Blood Pressure Location Lt brachial Position Sitting Respiration 19 Pulse 78 Pulse Source Pulse Oximeter Temp 98.2 F Temp Source Oral Pulse Oximetry (%) 99 Oxygen Delivery Method Room Air Intake Visit Reasons: 3m follow up Intake Note: Pt is here today for 3 months follow up visit. Allergies Penicillins (PCN) Allergy (Unknown, Verified 02/18/25 11:07) UNKNOWN Medication List - Last Reconciled 02/18/25 by Arelis Sapp MD acetaminophen 1,000 mg (2 x 500 mg) PO Q6H PRN calcium carbonate-vitamin D3 600 mg-10 mcg (400 unit) caps PO carvedilol 12.5 mg PO BID 90 days cholecalciferol (vitamin D3) 50 mcg PO DAILY estradiol patches transdermal levothyroxine (Levoxyl) 100 mcg PO DAILY simvastatin 10 mg PO DAILY 90 days valacyclovir (Valtrex) 1,000 mg PO BID valsartan 80 mg PO DAILY Tobacco use date assessed: 02/18/25 Dental Screening Dental Screen Date: 02/18/25 Did you have a dental visit in the last 12 months?: Yes Did you have a dental problem in the last 6 months where you did not have access to dental care?: No Was dental information given to patient?: Patient has dentist HPI 3m follow up HPI Details Patient presents for the follow-up on hypertension hyperlipidemia. Patient has not been taking valsartan regularly only when her blood pressure is elevated up to twice a week. Patient has been under lot of stress. her son has engagement constitution party at the end of the month and is planning wedding in [place]. [facility] Medical History Acute respiratory disease Cough Moderate obstructive sleep apnea Witnessed apneic spells Labile hypertension Anxiety Impaired glucose tolerance Hypercholesterolemia History of thyroid cancer Hypothyroid Obesity (BMI 30-39.9) Surgical History History of hysterectomy History of thyroidectomy Family History Father Diabetes Hypertension CVD (cardiovascular disease) Mother CVD (cardiovascular disease) Hypertension Sister In good health Lung cancer Sister In good health Sister In good health Son In good health Paternal Uncle Myocardial infarction Maternal Uncle Myocardial infarction Social History Household Members Other:: , 1 son 35, lives in [place] Housing: House Alcohol intake: never Patient Tobacco Use Status: Never used Tobacco Tobacco use type: Cigarette Years Smoked: high school e-Cigarette/Vaping Use: Never Used Second Hand Smoke Exposure: No service: No Current occupational status: employed Current occupational exposures/hazards: No Cognitive needs: No Hearing needs: No Vision needs: Yes Questionnaire Thrive Questionnaire Date Thrive assessed: 07/15/24 I am a: Patient What is your living situation today?: I choose not to answer this question Within the past 12 months, did the food you bought not last and you didn't have the money to get more?: I choose not to answer this question Within the past 12 months, did you worry whether your food would run out before you got money to buy more?: I choose not to answer this question Do you have trouble paying for medicines?: No Do you have trouble getting transportation to medical appointments?: No Do you have trouble paying your heating and electricity bill?: No Do you have trouble taking care of your child, family member or friend?: No Do you have trouble with day-to-day activities such as bathing, preparing meals, shopping, managing finances, etc.?: No Are you currently unemployed and looking for a job?: No Are you interested in more education?: No Please select the resources that you would like help with: None Currently or been in a relationship where the following occur: I choose not to answer THRIVE Score: 0 YOLANDA-7 AMB Questionnaire YOLANDA-7 Date YOLANDA - 7 assessed: 07/15/24 Source: Developed by Drs. Vin Vallejo, Dalia Lui, Chacorta Doran and colleagues, with an educational severiano from [employer]. Review of Systems Const All systems reviewed & are unremarkable except as noted in HPI and below Eyes Reports no additional complaints ENT Reports no additional complaints Card Reports no additional complaints Resp Reports no additional complaints GI Reports no additional complaints Physical exam (Primary Care) Vital Signs: Last Vital Signs Temp 98.2 F 02/18/25 11:07 Pulse 78 02/18/25 11:07 Resp 19 02/18/25 11:07 BP 126/84 02/18/25 11:07 Pulse Ox 99 02/18/25 11:07 Oxygen Delivery Method Room Air 02/18/25 11:07 BMI result Body Mass Index 38.2 Tobacco/Smoking Status: Tobacco use Status Tobacco use date assessed 02/18/25 02/18/25 11:30 Patient Tobacco Use Status Never used Tobacco 02/18/25 11:08 Tobacco use type Cigarette 02/18/25 11:08 e-Cigarette/Vaping Use Never Used 02/18/25 11:08 Thrive Assessment: Date of Thrive Assessment Date Thrive assessed 07/15/24 02/18/25 11:08 Currently or been in a relationship where the following occur: I choose not to answer Const General: no acute distress HENMT Head: Yes normal to inspection Eyes General: appearance normal, both eyes and all related structures Neck Neck: Yes supple Resp Effort & Inspection: normal respiratory effort Auscultation: clear to auscultation bilaterally Cardio Rhythm: regular rhythm Heart sounds: S1 normal heart sound present and S2 normal heart sound present Coding Level of Care Code Est Pt Level 4 (91999) Diagnoses Hypertension I10 Acquired hypothyroidism E03.9 Hypothyroidism type: acquired Hypercholesterolemia E78.00 Assessment & Plan Assessment & Plan (1) Hypertension: Code(s): I10 - Essential (primary) hypertension Category: Medical Plan: Medication compliance discussed with the patient. she was advised to take valsartan daily and continue Cardizem (2) Hypothyroid: Comment: After total thyroidectomy for thyroid cancer in 2008, established with endocrinology Dr. Yee Code(s): E03.9 - Hypothyroidism, unspecified Category: Medical Qualifiers: Hypothyroidism type: acquired Qualified Code(s): E03.9 - Hypothyroidism, unspecified Plan: Continue Levothyroxine (3) Hypercholesterolemia: Comment: goal of LDL is less than 130 Code(s): E78.00 - Pure hypercholesterolemia, unspecified Category: Medical Plan: Increase simvastatin to 20 mg a day follow-up in 6 weeks with a fasting labs before Orders: Orders Comprehensive Bath. Panel Fast 6 Weeks E03.9 - Hypothyroidism, unspecified, I10 - Essential (primary) hypertension Complete Blood Count Auto Diff 6 Weeks E03.9 - Hypothyroidism, unspecified, I10 - Essential (primary) hypertension Lipid Panel 6 Weeks E03.9 - Hypothyroidism, unspecified, I10 - Essential (primary) hypertension Medications: New simvastatin 20 mg PO DAILY 90 tabs 3RF Discontinued simvastatin Discontinued Reason: Doctor's Order 10 mg PO DAILY 90 days 90 tabs 3RF E78.00 - Pure hypercholesterolemia, unspecified
--- OUTSIDE RECORDS SUMMARY | 2025-02-18 11:55 | XMS_ITS | Encounter Summary ---
Author Organization [facility] Address [address] [place] [address] Phone Care Team Providers Care Material Damage Appraiser Name Role Phone Unknown, Unknown Primary Care Provider Kaci Parks MD Primary Care Provider [phone] Encounter Details Date Type Department Care Team (Late st Contact Info) Description 05/02/2017 Transcribe Orders [facility] [address] [place] [address] Kaci Eubanks MD [address] [place] [phone] Personal history of malignant neoplasm of [...] 3:40 PM EDT Office Visit [facility] [address] [place] [address] Marie Acosta MD [address] [place] [address] documented as of this encounter Results * Calcitonin (05/02/2017 10:33 AM EST) [facility] CALCITONIN <5.0 <=7.6 pg/mL [facility] Comment: (NOTE) ADDITIONAL [...] ORDERABLES Final Re sult Performing Organization Address [facility] de Phone Number [facility] MED/[place] [address] * Thyroglobulin antibodies (05/02/2017 10:33 AM EST) [facility] THYROGLOBULIN ANTIBODY, S <1.8 <4.0 IU/mL [facility] Comment: (NOTE) ADDITIONAL INFORMATION The thyroglobulin antibody testing method is an immunoenzymatic assay manufactured by [employer] and performed on the [employer] DXI 800. Values obtained from different assay methods or kits may be different and cannot be used interchangeably. The results cannot be interpreted as absolute evidence for the presence or absence of malignant disease. Blood 05/02/2017 10:3 3 AM EST 05/02/2017 10:40 AM EST us Kaci Eubanks MD LAB BLOOD ORDERABLES Final Re sult Performing Organization Address [facility] de Phone Number [facility] MED/PATH [address] [place] [address] * TSH (05/02/2017 10:33 AM EST) TSH 2.44 0.27 - 4.20 uIU/mL [facility] Blood 05/02/2017 10:3 3 AM EST 05/02/2017 10:40 AM EST us Kaci Eubanks MD LAB BLOOD ORDERABLES Final Re sult Performing Organization Address City/[facility]/ZIP Co de Phone Number [address] [address] * Carcinoembryonic antigen (CEA) (05/02/2017 10:33 AM EST) CEA 0.6 ng/mL [facility] Comment: Nonsmokers: less than or equal to 3.0 ng/mL Smokers: less than 5.0 ng/mL Blood 05/02/2017 10:3 3 AM EST 05/02/2017 10:40 AM EST us Kaci Eubanks MD LAB BLOOD ORDERABLES Final Re sult Performing Organization Address City/[facility] Co de Phone Number [address] [address] documented in this encounter Visit Diagnoses Diagnosis Personal history of malignant neoplasm of thyroid- Primary documented in this encounter Care Teams Material Damage Appraiser Relationship Specialty Start Date End Date Unknown, Unknown, MD PCP - General 05/02/17 10/03/22 Kaci Eubanks MD [address] [place] [phone] PCP - General Internal Medicine 10/04/22 documented as of this encounter Additional Source Comments The information contained in this document represents components of the legal health record. It is not the complete legal health record.[facility]
--- OUTSIDE RECORDS SUMMARY | 2025-02-18 11:55 | XMS_ITS | Clinical Summary ---
Author Organization [facility] Address [address] [address] Phone Care Team Providers Care Professor Of Radiology Name Role Phone Kaci Eubanks MD Primary Care Provider [phone] Allergies Active Allergy Reactions Criticality Noted Date [...] Care Team Description 01/06/2025 Refill [facility] [address] [place] [address] [place] [address] Marie Acosta MD Medication Refill from Last [...] 3:40 PM EDT Office Visit [facility] [address] [place] [address] [place] [address] Marie Acosta MD [address] [place] [address] [email or web address] Health Maintenance Due Date Last Done Comments [...] EST) TSH 4.21(H) 0.27 - 4.20 uIU/mL [facility] Blood 07/21/2024 11:4 9 AM EST 07/21/2024 11:56 AM EST us Marie Acosta MD LAB BLOOD ORDERABLES Final Res ult [address] [address] from Last 3 Months or Most Recently Relevant to Health Maintenance Insurance CIGNA PPO CIGITKI PPO CIGNA PPO CIGNA PPO CIGNA PPO CIGNA PPO Care Teams Professor Of Radiology Relationship Specialty Start Date End Date Kaci Eubanks MD [address] [place] [phone] PCP - General Internal Medicine 10/04/22 Additional Source Comments The information contained in this document represents components of the legal health record. It is not the complete legal health record.[facility]
--- OUTSIDE RECORDS SUMMARY | 2025-02-18 11:56 | XMS_ITS | Patient Health Record ---
Author Organization [facility] Address [address] [facility] [address] [place] [address] Care Team Providers Care Secretary To The Vice President Name Role Phone Arelis Sapp MD Primary Care Provider Daniella Fabian Unavailable [phone] Allergies Allergen (clinical drug ingredient) Drug/Non Drug [...] Problem History of malignant neoplasm of thyroid (620413090) Personal history of malignant neoplasm of thyroid (Z85.850) Active confirmed Problem Menopause (004455074) Menopausal and female climacteric states (N95.1) Active confirmed Problem Hypothyroidism (76869643) Unspecified hypothyroidism (244.9) Active confirmed Major Problem Vulvovaginitis (disorder) (58554346) Unspecified vaginitis and vulvovaginitis (616.10) Active confirmed Diag Problem Menopausal symptom (64655181) Symptomatic menopausal or female climacteric states (627.2) Active confirmed Major Problem Gynecological examination normal (673963023996483) Routine gynecological examination (V72.31) Active confirmed Major Problem Screening for malignant neoplasm of colon (512016883) Special screening for malignant neoplasms, colon (V76.51) Active confirmed Major Vital Signs Temperature 98.0 degrees Fahrenheit 12/22/2024 Blood pressure diastolic 106 mm Hg 12/22/2024 Height 62.5 in 12/22/2024 Blood pressure systolic 176 mm Hg 12/22/2024 Weight 209 lbs 12/22/2024 BMI 37.61 kg/m2 12/22/2024 Encounters Encounter Location Date Provider Diagnosis [facility] [employer] [address] [place] [address] 07/30/2024 Daniella Eid Encounter for gynecological examination (general) (routine) without abnormal findings Z01.419 ; Encounter for screening mammogram for malignant neoplasm of breast Z12.31 ; Hormone replacement therapy Z79.890 and Hematuria, unspecified R31.[address] [place] [address] 12/22/2024 Daniella Eid Chronic candidiasis of vulva [...] Provider Name:Daniella bernabe, 08/05/2025 02:00:00 PM, [address] [facility], [address], [place], [address], Insurance Providers Payer Name Payer Address Payer Phone Subscriber Number Group Number Insured Name Patient Relationship to Insured Coverage Start Date Coverage End Date [employer] [address] [place] [id number] HEIDI LOCKWOOD Spouse - patient is the [...]
--- OUTSIDE RECORDS SUMMARY | 2025-02-18 11:56 | XMS_ITS | Clinical Summary ---
Author Organization [facility] Address [address] [address] Phone Care Team Providers Care Echocardiographer Name Role Phone Kaci Eubanks MD Primary Care Provider [phone] Allergies Active Allergy Reactions Criticality Noted Date [...] Visit [facility] [address] [facility] [address] [place] [address] Elo Sepulveda ARNP [address] [facility] [address] [place] [address] Health Maintenance Due Date Last [...] 8.3(A) 8.7 - 10.7 mg/dL eGFR Non-Afr Citizen Of [place] >60 01/06/2025 us Historical Provider LAB BLOOD ORDERABLES Darlin l Result from Last 3 Months Insurance Cigna Cigna Care Teams Echocardiographer Relationship Specialty Start Date End Date Kaci Eubanks MD [address] [place] PCP - General 06/26/20
== END 2025-02-18 11:49 | disposition home or self-care (01) ==
LOC: HO.HMCC 10:51
PROVIDERS: PCP Internal Medicine; Visit Provider Internal Medicine
DX: I10 Essential (primary) hypertension (principal); E03.9 Hypothyroidism, unspecified; E78.00 Pure hypercholesterolemia, unspecified

== ENCOUNTER 2025-05-18 13:00 | Outpatient (REF) | payer OTHER, SELFPAY ==
--- OUTSIDE RECORDS SUMMARY | 2025-05-18 15:30 | XMS_ITS | Clinical Summary ---
Author Organization [facility] Address [address] [address] Phone Care Team Providers Care Manager Image Name Role Phone Kaci Eubanks MD Primary Care Provider [phone] Allergies Active Allergy Reactions Criticality Noted Date Comments Penicillins Unknown 04/26/2008 Medications simvastatin (ZOCOR) 10 MG tablet Take 1 tablet by mouth daily. 01/13/2023 Active cholecalciferol (VITAMIN D3) 25 MCG (1,000 unit) tablet Take 1,000 Units by mouth daily. Active estradioL (VIVELLE-DOT) 0.025 mg/[address] 1 patch onto the skin 2 (two) times a week. Active valsartan (DIOVAN) 80 MG tablet Take 80 mg by mouth daily. 03/23/2025 Active carvedilol (COREG) 12.5 MG tablet Take 12.5 mg by mouth 2 (two) times a day with meals. Active LEVOXYL 100 mcg tablet Take 1.5 tablet by mouth 1 day a week and 1 tablet by mouth 6 days a week 98 tablet 1 03/23/2025 Active Active Problems Problem Noted Date Diagnosed Date Essential hypertension 03/23/2025 Assessment & Plan (03/23/2025 4:48 PM EDT): Has been treated with carvedilol and valsartan added 3 weeks ago by PCP. Patient is under increased stress. 2 pounds weight gain since July. 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 Her dose was increased to 100 mcg daily. Her last TSH normalized, close to the upper end of normal on 03/21/2025. Discussed that her TSH target would be between 0.5-2.5 considering history of thyroid cancer. -We decided to increase her dose by taking 7.5 tabs per week of the 100 mcg tablet giving a daily average of 107 mcg -Repeat TSH in 2 to 3 months or earlier as clinically indicated. -Follow-up in 6 months Assessment & Plan (08/14/2024 8:10 PM EST): [...] Calcitonin less than 5. Assessment & Plan (03/23/2025 4:51 PM EDT): History of left 1.7 cm medullary thyroid cancer, status post total thyroidectomy in 04/2008. Calcitonin remains unmeasurable and CEA remains within the normal range last tested on 03/21/2025. -Plan to repeat these tumor markers yearly. Assessment & Plan (08/14/2024 8:11 PM EST): [...] thyroglobulin and thyroglobulin antibody Assessment & Plan (03/23/2025 4:52 PM EDT): Incidental 3 mm isthmus papillary thyroid cancer at the time of total thyroidectomy for medullary thyroid cancer. Unmeasurable thyroglobulin and thyroglobulin antibody, last tested on 03/21/2025 while TSH was high normal at 3.32. -Plan to monitor thyroglobulin and thyroglobulin antibody yearly. Keep TSH around 0.5-2.5 -See above regarding increasing levothyroxine dose Assessment & Plan (08/14/2024 8:12 PM EST): [...] Encounters Date Type Department Care Team Description 03/23/2025 3:40 PM EDT Office Visit [facility] [address] [place] [address] [place] [address] Marie Acosta MD Postoperative hypothyroidism (Primary Dx); Medullary thyroid carcinoma; Papillary microcarcinoma of thyroid; Essential hypertension 03/21/2025 12:06 PM EDT - 03/21/2025 11:59 PM EDT Hospital Encounter [facility] [place] [address] Marie Acosta MD Discharge Disposition: Home or Self Care from Last 3 Months Immunizations Immunization Administration Dates Next Due COVID-19 (Pre-04/07) Pfizer Vaccine, mRNA, PF Pneumococcal polysaccharide PPSV23 06/26/2018 Td (adult) 5 Lf Tetanus Toxoid, PF, Adsorbed 07/2018,11/11/2006 Tdap 09/08/2015 Social History Tobacco Use Types Packs/Day Years [...] Sign Reading Time Taken Comments Blood Pressure 150/100 03/23/2025 3:40 PM EDT Pt wanted BP checked at the end of the visit due to BP issues Pulse 95 03/23/2025 3:40 PM EDT Temperature - - Respiratory Rate 20 03/23/2025 3:40 PM EDT Oxygen Saturation 97% 03/23/2025 3:4 0 PM EDT Inhaled Oxygen Concentration - - Weight 95.8 kg (211 lb 3.2 oz) 03/23/2025 3:40 PM EDT Height 159.4 cm (5' 2.76 ) 07/26/2024 1 2:58 PM EST Body Mass Index 37.7 07/26/2024 12:58 PM EST Plan of Treatment Upcoming Encounters Date Type Department Care Team (Late st Contact Info) Description 09/28/2025 3:20 PM EDT Office Visit [facility] [address] [place] [address] Marie cAosta MD [address] [place] [phone] [email or web address] Health Maintenance Due Date Last Done Comments [...] PCV) 06/26/2019 06/26/2018 INFLUENZA VACCINE (#1) 2025 CREATININE LEVEL 01/18/2025 01/19/2024 POTASSIUM LEVEL 01/18/2025 01/19/2024 COVID-19 VACCINE (2 - season) 2025 09/07/2020 BLOOD PRESSURE 09/21/2025 03/23/2025 TSH LEVEL 03/21/2026 03/21/2025, 02/0 10/2024, 01/19/2024, Additional history exists SCREENING FOR DIABETES 01/18/2027 01/19/2024 Adult Td,Tdap Booster 06/17/2028 06/17/2018 , 09/08/2015, 11/11/2006 RSV VACCINE (1 - 1-dose 75+ series) 2036 SMOKING STATUS SCREENING (Once After 26 Yrs) Completed 03/23/2025 HEPATITIS A VACCINES Aged Out No long [...] Procedure Name Priority Date/Time Associated Diagnosis Comments THYROGLOBULIN ANTIBODY Routine 12:14 PM EDT Postoperative hypothyroidism THYROGLOBULIN, TUMOR MARKER Routine 03/21/2025 12:14 PM EDT Postoperative hypothyroidism CARCINOEMBRYONIC ANTIGEN (CEA) Routine 03/21/2025 12:14 PM EDT Medullary thyroid carcinoma CALCITONIN Routine 03/21/2025 12:14 PM EDT Medullary thyroid carcinoma TSH WITH REFLEX Routine 03/21/2025 12:14 PM EDT Postoperative hypothyroidism COMPREHENSIVE METABOLIC PANEL (CMP) Routine 01/19/2024 3:35 PM EDT Vitamin D deficiency, unspecified from Last 3 Months or Most Recently Relevant to Health Maintenance Results * Thyroglobulin antibody (03/21/2025 12:14 PM EDT) THYROGLOBULIN ANTIBODY, S <1.8 <4.0 IU/mL [facility] Comment: (NOTE) ADDITIONAL INFORMATION PLEASE NOTE: The given thyroglobulin antibody (TgAb) reference cutoff of <4.0 IU/mL is for the evaluation of autoimmune thyroiditis. A cutoff of <1.8 IU/mL may be more suitable for the detection of potential thyroglobulin antibody (TgAb) interference in thyroglobulin immunoassays. The thyroglobulin antibody testing method is an immunoenzymatic assay manufactured by [employer]. and performed on the [employer] [place] DXI 800. Values obtained from different assay methods or kits may be different and cannot be used interchangeably. The results cannot be interpreted as absolute evidence for the presence or absence of malignant disease. Blood 03/21/2025 12:1 4 PM EDT 03/21/2025 12:30 PM EDT Marie Acosta MD LAB BLOOD ORDERABLES Final Res ult Performing Organization Address [facility]/ZIP Co de Phone Number [facility] [address] [place] [address] * TSH with reflex (03/21/2025 12:14 PM EDT) TSH 3.32 0.27 - 4.20 uIU/mL [facility] Blood 03/21/2025 12:1 4 PM EDT 03/21/2025 12:32 PM EDT Marie Acosta MD LAB BLOOD BKR ORDERABLES Final Result Performing Organization Address [facility]/ZIP Co de Phone Number [address] [address] * Thyroglobulin, Tumor Marker (03/21/2025 12:14 PM EDT) THYROGLOBULIN <0.1 < or = 33 ng/mL [facility] THYROGLOBULIN AB <1.8 <1.8 IU/mL [facility] THYROGLOBULIN INTRP SEE NOTE [facility] Comment: (NOTE) Thyroglobulin (Tg) reference intervals are for patients with an intact thyroid and not for patients who have had surgery for thyroid cancer. Tg reference intervals in patients that have undergone thyroidectomy or any treatment for follicular thyroid cancer are dependent on the residual mass of the thyroid tissue after surgery. Tg results, regardless of concentration, should not be interpreted as absolute evidence for the presence or absence of papillary or follicular thyroid cancer. This result needs to be interpreted in the context of the clinical evaluation. ADDITIONAL INFORMATION PLEASE NOTE: The given cutoff of <1.8 IU/mL is for the detection of potential thyroglobulin antibody (TgAb) interference in thyroglobulin immunoassays. A thyroglobulin antibody (TgAb) reference cutoff of <4.0 IU/mL may be more suitable for the evaluation of autoimmune thyroiditis. The thyroglobulin and thyroglobulin antibody testing methods are immunoenzymatic assays manufactured by [employer] and performed on the [employer] 800. Values obtained from different assay methods or kits may be different and cannot be used interchangeably. The results cannot be interpreted as absolute evidence for the presence or absence of malignant disease. Blood 03/21/2025 12:1 4 PM EDT 03/21/2025 12:30 PM EDT us Marie Acosta MD LAB BLOOD ORDERABLES Final Res ult [facility] [address] [place] [address] * Calcitonin (03/21/2025 12:14 PM EDT) CALCITONIN <5.0 <=7.6 pg/mL [facility] Comment: (NOTE) ADDITIONAL INFORMATION The testing method is an electrochemiluminescence assay manufactured by [employer] and performed on the [employer] system. Values obtained with different assay methods or kits may be different and cannot be used interchangeably. Test results cannot be interpreted as absolute evidence for the presence or absence of malignant disease. Blood 03/21/2025 12:1 4 PM EDT 03/21/2025 12:30 PM EDT Marie Acosta MD LAB BLOOD ORDERABLES Final Res ult [facility] [address] [address] [place] [address] * Carcinoembryonic antigen (CEA) (03/21/2025 12:14 PM EDT) CEA 1.0 0 - 3.4 ng/mL [facility] Comment: Test Methodology [employer] [id number] Patient results determined by assays using different manufacturers or methods may not be comparable. Blood 03/21/2025 12:1 4 PM EDT 03/21/2025 12:32 PM EDT Marie Acosta MD LAB BLOOD BKR ORDERABLES Final Result Performing Organization Address City/[facility]/ZIP Co de Phone Number [address] [address] * Comprehensive metabolic panel (01/19/2024 3:35 PM EDT) SODIUM 139 133 - 146 mmol/L [facility] POTASSIUM 3.9 3.3 - 5.1 mmol/L [facility] CHLORIDE 101 96 - 108 mmol/L [facility] CO2 29 21 - 35 mmol/L [facility] BUN 17 6 - 19 mg/dL [facility] CREATININE 0.60 0.5 - 1.5 mg/dL [facility] GLUCOSE 94 70 - 99 mg/dL [facility] ALBUMIN 4.2 3.9 - 4.8 g/dL [facility] TOTAL PROTEIN 7.6 6.5 - 8.0 g/dL [facility] CALCIUM 9.1 8.4 - 10.3 mg/dL [facility] ALKALINE PHOSPHATASE 92 39 - 117 U/L [facility] TOTAL BILIRUBIN <0.2 0.0 - 1.2 mg/dL [facility] AST 21 0 - 37 U/L [facility] ALT 20 0 - 40 U/L [facility] GLOBULIN 3.4 1 - 4.8 g/dL [facility] EGFR 101 >59 mL/min/1.7 3m2 [facility] Comment:Estimated glomerular filtration rate calculated using the CKD-EPI refit equation. ANION GAP 13 10 - 20 mmol/L [facility] Blood 01/19/2024 3:35 PM EDT 01/19/2024 3:39 PM EDT us Marie Acosta MD LAB BLOOD BKR ORDERABLES Final Result [address] [address] from Last 3 Months or Most Recently Relevant to Health Maintenance Insurance CIGNA PPO [employer] PPO CIGNA PPO CIGNA PPO CIGNA PPO CIGNA PPO Care Teams Manager Image Relationship Specialty Start Date End Date Kaci Eubanks MD [address] [place] [phone] PCP - General Internal Medicine 10/04/22 Additional Source Comments The information contained in this document represents components of the legal health record. It is not the complete legal health record.[facility]
--- OUTSIDE RECORDS SUMMARY | 2025-05-18 15:30 | XMS_ITS | Encounter Summary ---
Author Organization [facility] Address [address] [facility] [address] [place] [address] Phone Care Team Providers Care Card Decorator Name Role Phone Unknown, Unknown Primary Care Provider Kaci Parks MD Primary Care Provider [phone] Encounter Details Date Type Department Care Team (Late st Contact Info) Description 05/02/2017 Transcribe Orders [address] [address] Kaci Eubanks MD [address] [place] [phone] Personal history of malignant neoplasm of thyroid [...] 3:20 PM EDT Office Visit [facility] [address] [place] [address] Marie Acosta MD [address] [place] [address] [email or web address] documented as of this encounter Results * Calcitonin (05/02/2017 10:33 AM EST) CALCITONIN <5.0 <=7.6 pg/mL [facility] Comment: (NOTE) ADDITIONAL INFORMATION The testing method is an electrochemiluminescence assay manufactured by [employer] and performed on the [employer] system. Values obtained with different assay methods or kits may be different and cannot be used interchangeably. Test results cannot be interpreted as absolute evidence for the presence or absence of malignant disease. Blood 05/02/2017 10:3 3 AM EST 05/02/2017 10:40 AM EST Kaci Eubanks MD LAB BLOOD ORDERABLES Final Re sul Performing Organization Address [facility] de Phone Number [facility] [address] [place] [address] * Thyroglobulin antibodies (05/02/2017 10:33 AM EST) Pathologist [facility] THYROGLOBULIN ANTIBODY, S <1.8 <4.0 IU/mL [facility] Comment: (NOTE) ADDITIONAL INFORMATION The thyroglobulin antibody testing method is an immunoenzymatic assay manufactured by [employer] and performed on the [employer] DXI 800. Values obtained from different assay methods or kits may be different and cannot be used interchangeably. The results cannot be interpreted as absolute evidence for the presence or absence of malignant disease. Blood 05/02/2017 10:3 3 AM EST 05/02/2017 10:40 AM EST Kaci Eubanks MD LAB BLOOD ORDERABLES Final Re sult Performing Organization Address [facility] de Phone Number [facility] [address] [place] [address] * TSH (05/02/2017 10:33 AM EST) TSH 2.44 0.27 - 4.20 uIU/mL [facility] Blood 05/02/2017 10:3 3 AM EST 05/02/2017 10:40 AM EST us Kaci Eubanks MD LAB BLOOD BKR ORDERABLES Darlin l Result [address] [address] * Carcinoembryonic antigen (CEA) (05/02/2017 10:33 AM EST) CEA 0.6 ng/mL [facility] Comment: Nonsmokers: less than or equal to 3.0 ng/mL Smokers: less than 5.0 ng/mL Blood 05/02/2017 10:3 3 AM EST 05/02/2017 10:40 AM EST us Kaci Eubanks MD LAB BLOOD BKR ORDERABLES Darlin l Result Performing Organization Address City/[facility]/ZIP Co de Phone Number [address] [address] documented in this encounter Visit Diagnoses Diagnosis Personal history of malignant neoplasm of thyroid- Primary documented in this encounter Care Teams Card Decorator Relationship Specialty Start Date End Date Unknown, Unknown, MD PCP - General 05/02/17 10/03/22 Kaci Eubanks MD [address] [place] [phone] PCP - General Internal Medicine 10/04/22 documented as of this encounter Additional Source Comments The information contained in this document represents components of the legal health record. It is not the complete legal health record.[facility]
[2025-05-18 16:10] LABS: MANUAL DIFF FLAG NO
[2025-05-18 16:21] LABS: Hematocrit 40.4 % (37.0-47.0); Hemoglobin 13.1 g/dl (12.0-16.0); Imm Gran Abs Auto 0.03 X10*3/uL (0.00-0.03); Imm Gran Pct Auto 0.3 % (0.0-0.4); Lymphocytes Absolute Auto 2.5 X10*3/uL (1.2-4.9); Mean Corpuscular HGB Conc 32.4 g/dl (31.0-35.0); Mean Corpuscular Hemoglobin 30.1 pg (27.0-33.0); Mean Corpuscular Volume 92.9 fL (80.0-98.0); NRBC Abs Auto 0.000 X10*3/uL (0.0-0.012); NRBC Pct Auto 0.0 /100WBC (0.0-0.2); Platelet Count 221 X10*3/uL (160-400); Red Blood Count 4.35 X10*6/uL (4.20-5.50); White Blood Count 9.8 X10*3/uL (4.8-10.8)
[2025-05-18 16:34] LABS: Alanine Aminotransferase 23 U/L (0-31); Albumin Level 4.4 g/dL (3.5-5.0); Alkaline Phosphatase 86 U/L (39-117); Anion Gap 15 (12-20); Aspartate Amino Transferase 19 U/L (5-31); Blood Urea Nitrogen 18 mg/dL (9-16); Calcium 9.1 mg/dL (8.4-10.2); Carbon Dioxide 29 mmol/L (22-29); Chloride 104 mmol/L (96-108); Cholesterol 221 mg/dL (<200); Estimated Glomerular Filt Rate > 60; HDL Cholesterol 64 mg/dL (>40); Potassium 4.7 mmol/L (3.3-5.1); Sodium 143 mmol/L (135-145); Total Protein 7.4 g/dL (6.5-8.0); Triglycerides 110 mg/dL (<150)
== END 2025-05-18 13:01 | disposition home or self-care (01) ==
LOC: HO.HMGCLDS 13:00
PROVIDERS: PCP Internal Medicine; Visit Provider Internal Medicine
DX: I10 Essential (primary) hypertension (principal); E03.9 Hypothyroidism, unspecified
CPT/HCPCS: 36415; 80053; 80061; 85025